=== PATIENT | male | born 1945 | race Hispanic/Latino ===

== ENCOUNTER 2017-03-29 15:59 | Emergency (ER) | payer MEDICARE, MEDICAID ==
[2017-03-29 18:27] LABS: #Basophils 0.1 thou/uL (0.0-0.2); #Eosinphils 0.2 thou/uL (0.0-0.7); #Lymphocytes 1.3 thou/uL (1.20-3.40); #Monocytes 0.9 thou/uL (0.11-0.59); #Neutrophils 8.3 thou/uL (1.40-6.50); %Basophils 0.6 % (0.0-1.0); %Lymphocytes 12.3 % (21.0-51.0); %Monocytes 8.5 % (0.0-10.0); Hematocrit 37.6 % (42.0-52.0); Mean Platelet Volume 6.9 fL (7.4-10.4); Red Blood Cell (RBC) Count 3.61 mill/uL (4.70-6.10); White Blood Cell (WBC) Count 10.9 thou/uL (4.8-10.8)
[2017-03-29 18:47] LABS: ALT (SGPT) 10 U/L (8-55); AST (SGOT) 11 U/L (5-34); Alkaline Phosphatase 62 U/L (40-150); Anion Gap 18 mmol/L (10-20); BUN (Urea Nitrogen) 14 mg/dL (8.4-25.7); Bilirubin, Total 0.4 mg/dL (0.2-1.2); Calc. Creatinine Clearance 0 mL/min (70-130); Calcium 9.3 mg/dL (7.8-10.44); Carbon Dioxide 33 mmol/L (23-31); Chloride 93 mmol/L (98-107); Estimated GFR-MDRD 16; Globulin 3.6 g/dL (2.4-3.5); Protein, Total 8.1 g/dL (5.8-8.1)
== END 2017-03-29 20:33 | disposition home or self-care (01) ==
LOC: ERS 15:59
DX: R19.7 Diarrhea, unspecified (principal); I12.0 Hypertensive chronic kidney disease with stage 5 chronic kidney disease or end stage renal disease; E11.22 Type 2 diabetes mellitus with diabetic chronic kidney disease; N18.6 End stage renal disease; Z99.2 Dependence on renal dialysis
CPT/HCPCS: 36415; 80053; 85025; 99284

== ENCOUNTER 2017-04-20 16:50 | Observation (INO) | payer MEDICARE, MEDICAID ==
[2017-04-20 18:13] LABS: Hemoglobin 13.7 g/dL (14.0-18.0); Mean Corpuscular HGB CONC 32.6 g/dL (32.0-36.0); Mean Corpuscular Hemoglobin 34.3 pg (27.0-31.0); Mean Platelet Volume 7.3 fL (7.4-10.4); Platelet Count 219 thou/uL (130-400); Red Blood Cell (RBC) Count 3.99 mill/uL (4.70-6.10); White Blood Cell (WBC) Count 7.6 thou/uL (4.8-10.8)
[2017-04-20 18:29] LABS: #Basophils 0.1 thou/uL (0.0-0.2); #Eosinphils 0.4 thou/uL (0.0-0.7); #Lymphocytes 1.5 thou/uL (1.20-3.40); #Monocytes 0.7 thou/uL (0.11-0.59); #Neutrophils 4.8 thou/uL (1.40-6.50); %Basophils 1.4 % (0.0-1.0); %Eosinophils 5.6 % (0.0-10.0); %Lymphocytes 19.8 % (21.0-51.0); %Monocytes 9.5 % (0.0-10.0); %Neutrophils 63.8 % (42.0-75.0); Anisocytosis SLIGHT = 6-15 cells (100X) (0-5/hpf); MDiff Complete? YES; Macrocytosis SLIGHT = 6-15 cells (100X) (0-5/hpf); Poikilocytosis SLIGHT = 6-15 cells (100X) (0-5/hpf)
[2017-04-20 18:37] LABS: CKMB 1.4 ng/mL (0-6.6); Troponin I 0.031 ng/mL (< 0.028)
[2017-04-20 18:38] LABS: ALT (SGPT) 10 U/L (8-55); AST (SGOT) 12 U/L (5-34); Alkaline Phosphatase 75 U/L (40-150); Anion Gap 18 mmol/L (10-20); BUN (Urea Nitrogen) 30 mg/dL (8.4-25.7); Bilirubin, Total 0.5 mg/dL (0.2-1.2); CK (CPK) 56 U/L (30-200); Calc. Creatinine Clearance 0 mL/min (70-130); Calcium 8.9 mg/dL (7.8-10.44); Carbon Dioxide 31 mmol/L (23-31); Chloride 98 mmol/L (98-107); Estimated GFR-MDRD 10; Globulin 3.4 g/dL (2.4-3.5); Glucose 115 mg/dL (83-110); Potassium 4.2 mmol/L (3.5-5.1); Protein, Total 7.4 g/dL (5.8-8.1); Sodium 143 mmol/L (136-145)
[2017-04-20] MEDS ORDERED: cloNIDine 0.1 MG TAB ONE ×2 (19:41→20:14)
[2017-04-20 23:23] LABS: Troponin I 0.034 ng/mL (< 0.028)
--- NOTE | 2017-04-20 23:45 | CT ---
CT OF HEAD NONCONTRAST 04/20/17 INDICATION: Hypertension, headache. FINDINGS: There are scattered calcifications involving the basal ganglia as well as the cerebellar nuclei bilat erally. There is mild global atrophy. Ventricular system is age appropriate in size. There is mild ch ronic microvascular ischemic disease. Scattered paranasal sinus mucosal thickening is present, modera te in degree. There is associated hyperdensity within component of the paranasal sinus mucosal thicke sruthi which can represent atypical entity such as fungal sinusitis. Correlate clinically. IMPRESSION: 1. No acute intracranial hemorrhage or mass effect. 2. Mild chronic microvascular ischemic disease. 3. Areas of mucosal thickening and paranasal sinus opacification as discussed above. POS: [facility]
[2017-04-21] MEDS ORDERED: hydrALAZINE 20 MG/ML VIAL SLOW IVP PRN (00:37)
[2017-04-21] MEDS ORDERED: Acetaminophen 325 MG TAB PO PRN (00:37)
[2017-04-21] MEDS ORDERED: Dextrose 50% Abboject 50 ML SYRINGE SLOW IVP PRN (00:37)
[2017-04-21] MEDS ORDERED: Nitroglycerin 0.4 MG TAB (25 Tab Bottle) SL PRN (00:37)
[2017-04-21] MEDS ORDERED: Ondansetron HCl/PF 4 MG/2 ML Vial IVP PRN (00:37)
[2017-04-21] MEDS ORDERED: Dextrose 5% in Water 1,000 ML IV PRN (00:37)
[2017-04-21] MEDS ORDERED: HumaLOG 300 UNITS/3 ML VIAL SC PRN (00:37)
[2017-04-21] MEDS: Labetalol HCl 100 MG/20 ML VIAL SLOW IVP PRN ×2 (00:58→21:20)
[2017-04-21 01:27] VITALS: BMI 24.2
[2017-04-21 02:39] LABS: #Basophils 0.1 thou/uL (0.0-0.2); #Eosinphils 0.4 thou/uL (0.0-0.7); #Lymphocytes 1.9 thou/uL (1.20-3.40); #Monocytes 0.9 thou/uL (0.11-0.59); #Neutrophils 4.9 thou/uL (1.40-6.50); %Basophils 0.8 % (0.0-1.0); %Eosinophils 4.7 % (0.0-10.0); %Lymphocytes 23.3 % (21.0-51.0); %Monocytes 10.7 % (0.0-10.0); %Neutrophils 60.5 % (42.0-75.0); Hemoglobin 11.7 g/dL (14.0-18.0); Mean Corpuscular HGB CONC 32.6 g/dL (32.0-36.0); Mean Corpuscular Hemoglobin 34.1 pg (27.0-31.0); Mean Platelet Volume 7.1 fL (7.4-10.4); Platelet Count 172 thou/uL (130-400); RBC Distribution Width 14.8 % (11.5-14.5); Red Blood Cell (RBC) Count 3.44 mill/uL (4.70-6.10)
[2017-04-21 03:04] LABS: Troponin I 0.038 ng/mL (< 0.028)
[2017-04-21 03:27] LABS: Anion Gap 16 mmol/L (10-20); BUN (Urea Nitrogen) 34 mg/dL (8.4-25.7); Calc. Creatinine Clearance 10 mL/min (70-130); Calcium 8.1 mg/dL (7.8-10.44); Carbon Dioxide 30 mmol/L (23-31); Chloride 99 mmol/L (98-107); Estimated GFR-MDRD 9; Glucose 140 mg/dL (83-110); Sodium 141 mmol/L (136-145)
--- NOTE | 2017-04-21 06:08 | HP ---
CHIEF COMPLAINT: Uncontrolled blood pressure. HISTORY OF PRESENT ILLNESS: This is a 71-year-old pleasant gentleman who has end-stage renal disease , came into the hospital as the daughter checked his blood pressure today at home and it was extremel y high. She came in because she was concerned. The patient denies any chest pain. Admits to some h eadache. The ER physician called Dr. Lovell and he recommended that we admit the patient for control o f his blood pressure and he would dialyze the patient in the morning. PAST MEDICAL HISTORY: Significant for diabetes, hypertension, and end-stage renal disease. 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 SOCIAL HISTORY: Denies alcohol, tobacco, or recreational drugs. ALLERGIES: HYDROCODONE. MEDICATIONS: Include , aspirin, amlodipine 10 mg p.o. daily, Losartan 50 p.o. daily, atorvastat in 10 mg p.o. daily. FAMILY HISTORY: Negative for diabetes or hypertension. REVIEW OF SYSTEMS: Significant for headache and elevated blood pressure. Otherwise, no fever, no ch ills, no appetite, no appetite, no hearing loss, no latencies. No cough, no chest pain, diarrhea, dy suria or polyuria. No memory or mood changes noted. PHYSICAL EXAMINATION: VITAL SIGNS: Blood pressure is 227/80 after he got 0.2 of clonidine in the ER before that, it was 25 6/95, respirations 18, satting 93% on room air, pulse was 97, temperature 97.4. GENERAL: Patient is lying in bed in no apparent distress. HEENT: Atraumatic and normocephalic. Pupils are equally round, reactive to light. Extraocular move ments are intact. Mucous membranes are moist. NECK: Supple. No JVD. CHEST: Breath sounds. There are no rales or rhonchi. HEART: S1, S2, no murmurs or gallops. ABDOMEN: Soft. EXTREMITIES: Right AKA. Left side, no cyanosis, clubbing, or edema. Distal pulses present. NEUROLOGIC: Alert, awake, oriented. No cranial deficits. No sensorimotor deficits. LABORATORY DATA: CK is 56. Sodium is 143, potassium 4.2, chloride is 98, creatinine is 4.4, BUN is 30, troponin is 0.31, hemoglobin is 13.7. Platelets 219. WBC count is 7.6. ASSESSMENT AND PLAN: 1. Hypertensive urgency. We will admit the patient to dialysis in the morning. We will do IV hydra lazine and IV labetalol to alternate to keep the blood pressure around 170 or 180 for now and then fo llow Dr. Lovell's recommendations. Continue Norvasc, losartan from home medications. 2. End-stage renal disease, dialysis in the morning. 3. Diabetes. Put the patient on insulin sliding scale. 4. Hypertension. Make recommendations per Dr. Lovell. 5. Sequential compression devices for deep venous thrombosis prophylaxis. I will work with Dr. Lovell and further caring for the patient.
[2017-04-21] MEDS: Aspirin 81 mg Enteric Coated Tablet PO SCH (09:03)
[2017-04-21] MEDS: Amlodipine 10 MG TAB PO SCH (09:03)
[2017-04-21] MEDS: Atorvastatin Calcium 10 MG TAB PO SCH (09:03)
[2017-04-21 13:02] LABS: HBSAg Index 0.25 S/CO (0-0.99); Hep B Surf Ag Non-Reactive S/CO (NonReactive)
--- NOTE | 2017-04-21 15:23 | PDOC.PN ---
- Subjective Encounter Start Date: 04/21/17 Encounter Start Time: 15:15 Subjective: f/u for HTN urgency requiring urgent HD for control. ESRD on chronic HD -: with overall improved BP currently undergoing HD. No CP, SOB, unilateral -: weakness. - Objective MAR Reviewed: Yes Vital Signs & Weight: Vital Signs (12 hours) Temp Pulse Resp BP BP Pulse Ox 04/21/17 12:00 97.5 F L 70 18 141/63 H 93 L 04/21/17 09:03 71 154/68 H 04/21/17 08:00 97.0 F L 71 18 154/68 H 96 04/21/17 04:00 98.2 F 68 18 205/81 H 93 L Weight Weight 145 lb 8 oz I&O: 04/20/17 04/21/17 04/22/17 06:59 06:59 06:59 Intake Total 240 Balance 240 Result Diagrams: 04/21/17 02:32 04/21/17 02:32 Additional Labs: Accuchecks 04/21/17 04/21/17 04/21/17 12:16 06:10 00:45 POC Glucose 160 H 111 H 116 H Radiology Reviewed by me: Yes (CT brain - no acute process) EKG Reviewed by me: Yes (Tele - SR in 70's) Phys Exam - Physical Examination Constitutional: NAD HEENT: PERRLA, oral pharynx no lesions Neck: no JVD, supple Respiratory: no wheezing, clear to auscultation bilateral Cardiovascular: RRR Gastrointestinal: soft, non-tender, no distention, positive bowel sounds Musculoskeletal: no edema, pulses present Neurological: normal sensation, moves all 4 limbs Skin: normal turgor, cap refill <2 seconds Dx/Plan (1) Hypertensive urgency Code(s): I16.0 - HYPERTENSIVE URGENCY Status: Acute Comment: Improved with urgent HD, continue HD per Renal service, serial BP monitoring, resume home Norvasc and Losartan (2) ESRD (end stage renal disease) on dialysis Code(s): N18.6 - END STAGE RENAL DISEASE; Z99.2 - DEPENDENCE ON RENAL DIALYSIS Status: Chronic Comment: HD per Renal service (3) CAD (coronary artery disease) Code(s): I25.10 - ATHSCL HEART DISEASE OF [place] CORONARY ARTERY W/O ANG PCTRS Status: Chronic Comment: Stable, no ACS, continue ASA 81mg daily, Lipitor 10mg HS (4) Dyslipidemia Code(s): E78.5 - HYPERLIPIDEMIA, UNSPECIFIED Status: Chronic Comment: Continue Lipitor 10mg HS (5) HTN (hypertension) Code(s): I10 - ESSENTIAL (PRIMARY) HYPERTENSION Status: Chronic Qualifiers: Hypertension type: essential hypertension Qualified Code(s): I10 - Essential (primary) hypertension Comment: labile, see #1, resume home BP regimen - Plan group social worker, DVT proph w/SCDs Stable overall -: Continue HD for volume mgmt -: Serial BP monitoring -: Continue Norvasc, Losartan -: AM lab: BMP * Likely home in am
--- NOTE | 2017-04-21 16:46 | CON ---
DATE OF CONSULTATION: 04/21/2017 REASON FOR CONSULTATION: Stage 6 chronic kidney disease, on maintenance hemodialysis. HISTORY OF PRESENT ILLNESS: The patient is a 71-year-old gentleman, who is on dialysis Monday, , and Monday, who presented to the hospital with uncontrolled blood pressure. The patient had no t been taking his medications as prescribed. The patient has had significant . The patient de nies any nausea, vomiting, or chest pain. PAST MEDICAL HISTORY: Significant for diabetes mellitus, hypertension, end-stage renal disease, hist ory of AV fistula, history of BKA, history of cellulitis, history of DVTs, history of secondary hyper parathyroidism. SOCIAL ECONOMICAL HISTORY: No alcohol or drugs. FAMILY HISTORY: Negative for ESRD. HOME MEDICATIONS: List reviewed. HOSPITAL MEDICATIONS: Reviewed. ALLERGIES: HYDROCODONE BITARTRATE. REVIEW OF SYSTEMS: Fifteen point review of system was performed and negative except positives noted above. GENERAL: Weakness-. HEAD: Headache-. NECK: No swelling or lumps. NOSE: No epistaxis or discharge. EYES: No diplopia or pain. RESPIRATORY: Dyspnea-. CARDIOVASCULAR: Chest pain-. GASTROINTESTINAL: Nausea-. /[employer]: Hematuria-. MUSCULOSKELETAL: No joint pain. NEUROPSYCHIATIC SYSTEMS: No suicidal ideation. No ideation. SKIN: Denies any rash or ulcer. CONSTITUTIONAL: No fever or chills. PHYSICAL EXAMINATION: GENERAL: Patient is awake and alert. VITAL SIGNS: Afebrile, pulse 75, breathing at 16, and blood pressure 154/68. GENERAL APPEARANCE AND MENTAL STATUS: Fair. HEAD/NECK: Normocephalic. Atraumatic. EYES: EOMI. No deformity. EARS: Clear. No ulcers. NOSE: Intact. No lesions. MOUTH: Clear. No discharge. THROAT: Clear. No exudate. LUNGS: Clear. No crackles. CARDIAC: S1, S2. No rub. ABDOMEN: Benign. BS+. GENITALIA/RECTUM: Weiner absent. BACK/EXTREMITIES: Edema 0+ Ulcer-. NEUROLOGICAL: Alert and motor intact. SKIN: Rash- Bruise-. LYMPHATICS: Edema- Ulcer-. LABORATORY DATA: Hemoglobin 11.7, potassium 4.0. ASSESSMENT AND RECOMMENDATIONS: 1. Stage 6 chronic kidney disease. We will plan dialysis. 2. Hypertension, stable. 3. Anemia, stable. 4. Medications based on GFR are appropriate. I advised the patient to comply with medication.
[2017-04-21] MEDS: Cilostazol 100 MG TAB PO SCH (21:21)
[2017-04-22 06:20] LABS: Anion Gap 15 mmol/L (10-20); BUN (Urea Nitrogen) 22 mg/dL (8.4-25.7); Calc. Creatinine Clearance 16 mL/min (70-130); Calcium 8.6 mg/dL (7.8-10.44); Carbon Dioxide 31 mmol/L (23-31); Chloride 97 mmol/L (98-107); Estimated GFR-MDRD 15; Glucose 116 mg/dL (83-110); Potassium 4.2 mmol/L (3.5-5.1); Sodium 139 mmol/L (136-145)
--- NOTE | 2017-04-22 08:40 | PDOC.PN ---
- Subjective Encounter Start Date: 04/22/17 - Objective Vital Signs & Weight: Vital Signs (12 hours) Temp Pulse Resp BP BP Pulse Ox 04/22/17 08:02 98 F 71 17 154/68 H 94 L 04/22/17 04:32 71 181/71 H 04/22/17 04:10 97.5 F L 71 18 181/71 H 94 L 04/22/17 00:00 98.1 F 72 18 177/76 H 94 L 04/21/17 21:20 71 181/74 H Weight Weight 145 lb 8 oz I&O: 04/21/17 04/22/17 04/23/17 06:59 06:59 06:59 Intake Total 540 Balance 540 Result Diagrams: 04/21/17 02:32 04/22/17 05:31 Additional Labs: Accuchecks 04/22/17 04/21/17 04/21/17 05:49 20:40 12:16 POC Glucose 121 H 205 H 160 H Dx/Plan - Plan * .
[2017-04-22] MEDS ORDERED: Losartan 25 MG TAB PO SCH (09:00)
[2017-04-22] MEDS: Cilostazol 100 MG TAB PO SCH (09:13)
[2017-04-22] MEDS: Atorvastatin Calcium 10 MG TAB PO SCH (09:13)
[2017-04-22] MEDS: Aspirin 81 mg Enteric Coated Tablet PO SCH (09:13)
[2017-04-22] MEDS: Amlodipine 10 MG TAB PO SCH (09:13)
--- NOTE | 2017-04-22 10:49 | PRG ---
DATE OF SERVICE: 04/22/2017 SUBJECTIVE: This is a 71-year-old gentleman being seen for end-stage renal disease. The patient den ies any nausea, vomiting or chest pain. PHYSICAL EXAMINATION: GENERAL: Patient is awake, alert. VITAL SIGNS: Afebrile, pulse 75, breathing at 16, blood pressure 154/68. HEAD/NECK: Normocephalic. Atraumatic. EYES: EOMI. No deformity. EARS: Clear. No ulcers. NOSE: Intact. No lesions. MOUTH: Clear. No discharge. THROAT: Clear. No exudate. LUNGS: Clear. No crackles. CARDIAC: S1, S2. No rub. ABDOMEN: Benign. BS+. GENITALIA/RECTUM: Weiner absent. BACK/EXTREMITIES: Edema 0+ Ulcer- NEUROLOGICAL: Alert and motor intact. SKIN: Rash- Bruise- LYMPHATICS: Edema- Ulcer- LABORATORY DATA: Show hemoglobin is 11.7. ASSESSMENT AND RECOMMENDATIONS: 1. Stage 6 chronic kidney disease, continue hemodialysis. 2. Hypertension, stable. 3. Anemia, stable. 4. Medications based on glomerular filtration rate are appropriate.
[2017-04-22 12:41] VITALS: BP 164/72; TEMP 98.2
--- NOTE | 2017-04-24 07:51 | DIS ---
PRIMARY CARE PHYSICIAN: Dr. Alex DISCHARGE DIAGNOSES: 1. Hypertension, uncontrolled. 2. End-stage renal disease. 3. Question of medication noncompliance. BRIEF SUMMARY OF HOSPITAL COURSE: This is a 71-year-old male with a known history of hypertension and end-stage renal disease with a question of marginal medication and therapy compliance, who presented with a chief complaint of hypertension. The patient was seen by Nephrology during this hospitalization as well. The patient was resumed on his home medication regimen and underwent hemodialysis without adverse sequelae. As the patient had slightly elevated blood pressures intermittently despite resuming his home medications, he has been placed on clonidine p.r.n. and given strict instructions for routine blood pressure evaluation at home. The patient and his at bedside are able to complete teach back with the aid of a commercial leasing agent over the phone. They have indicated that they will buy a blood pressure cuff over the counter and were able to complete teach back via lens grinder and polisher regarding when to utilize p.r.n. clonidine. The remainder of chronic issues were stable during hospitalization. CONSULTATIONS Nephrology, Dr. Lovell. MEDICATION: Medication reconciliation; please see the MAR for full details. The patient will resume on his home regimen with the addition of 0.1 mg, clonidine b.i.d. p.r.n. Prescription given. DISCHARGE AND FOLLOWUP INSTRUCTIONS: The patient has been asked to follow up closely with his outpatient team including his primary care provider in the next week along with Nephrology as well. Patient will discharge to home. Thank you for asking me to care for your patient. Greater than 30 minutes spent coordinating discharge. VENKATESH
== END 2017-04-22 12:45 | disposition home or self-care (01) ==
LOC: ERS 16:50 → 2NO 22:25
PROVIDERS: ADMIT Internal Medicine; ATTEND Internal Medicine
DX: E11.22 Type 2 diabetes mellitus with diabetic chronic kidney disease (principal); I12.0 Hypertensive chronic kidney disease with stage 5 chronic kidney disease or end stage renal disease; N18.6 End stage renal disease; I16.0 Hypertensive urgency; N25.81 Secondary hyperparathyroidism of renal origin; D63.1 Anemia in chronic kidney disease; Z99.2 Dependence on renal dialysis; Z79.82 Long term (current) use of aspirin; Z79.899 Other long term (current) drug therapy; Z88.5 Allergy status to narcotic agent; Z89.611 Acquired absence of right leg above knee; Z89.422 Acquired absence of other left toe(s); Z86.718 Personal history of other venous thrombosis and embolism; Z87.891 Personal history of nicotine dependence
CPT/HCPCS: 70450; 80048 ×2; 80053; 82550; 82553; 82962 ×2; 84484 ×3; 85025 ×2; 87340; 93005; 96374; 96376 ×2; 99285; G0378; 36415; 36416; 90935; G0257; J0360

== ENCOUNTER 2017-07-09 22:26 | Emergency (ER) | payer MEDICARE, MEDICAID ==
[2017-07-10 00:28] LABS: #Basophils 0.1 thou/uL (0.0-0.2); #Eosinphils 0.8 thou/uL (0.0-0.7); #Lymphocytes 1.6 thou/uL (1.20-3.40); #Neutrophils 6.8 thou/uL (1.40-6.50); %Basophils 0.6 % (0.0-1.0); %Eosinophils 7.5 % (0.0-10.0); %Lymphocytes 15.2 % (21.0-51.0); %Monocytes 9.7 % (0.0-10.0); %Neutrophils 66.9 % (42.0-75.0); Hemoglobin 11.3 g/dL (14.0-18.0); Mean Corpuscular HGB CONC 33.9 g/dL (32.0-36.0); Mean Corpuscular Hemoglobin 33.8 pg (27.0-31.0); Mean Corpuscular Volume 99.5 fl (80.0-94.0); Mean Platelet Volume 7.6 fL (7.4-10.4); Platelet Count 179 thou/uL (130-400); RBC Distribution Width 13.7 % (11.5-14.5); Red Blood Cell (RBC) Count 3.35 mill/uL (4.70-6.10); White Blood Cell (WBC) Count 10.2 thou/uL (4.8-10.8)
[2017-07-10] MEDS ORDERED: cloNIDine 0.1 MG TAB ONE (00:32)
[2017-07-10 00:45] LABS: ALT (SGPT) 23 U/L (8-55); AST (SGOT) 45 U/L (5-34); Albumin 4.1 g/dL (3.4-4.8); Alkaline Phosphatase 71 U/L (40-150); Anion Gap 19 mmol/L (10-20); BUN (Urea Nitrogen) 54 mg/dL (8.4-25.7); Bilirubin, Total 0.5 mg/dL (0.2-1.2); Calc. Creatinine Clearance 0 mL/min (70-130); Carbon Dioxide 30 mmol/L (23-31); Chloride 95 mmol/L (98-107); Estimated GFR-MDRD 8; Globulin 2.8 g/dL (2.4-3.5); Glucose 106 mg/dL (83-110); Magnesium 2.6 mg/dL (1.6-2.6); Phosphorus 6.1 mg/dL (2.3-4.7); Potassium 5.3 mmol/L (3.5-5.1); Protein, Total 6.9 g/dL (5.8-8.1); Sodium 139 mmol/L (136-145)
[2017-07-10 00:49] LABS: Troponin I 0.028 ng/mL (< 0.028)
--- NOTE | 2017-07-10 07:41 | RAD ---
SINGLE VIEW OF THE CHEST: COMPARISON: 08/30/15. HISTORY: Diabetic with hypertension. The patient does not feel well. FINDINGS: A single view of the chest shows a normal-size cardiomediastinal silhouette. There may be a calcifie d pleural plaque along the right hemidiaphragm. There is no evidence of consolidation, mass, or pleu ral effusion. Degenerative changes are seen in the spine. IMPRESSION: No evidence of acute cardiopulmonary disease. POS: [facility]
== END 2017-07-10 02:27 | disposition home or self-care (01) ==
LOC: ERS 22:26
DX: E78.5 Hyperlipidemia, unspecified; E11.22 Type 2 diabetes mellitus with diabetic chronic kidney disease; N18.6 End stage renal disease; Z79.82 Long term (current) use of aspirin; Z79.899 Other long term (current) drug therapy; I12.0 Hypertensive chronic kidney disease with stage 5 chronic kidney disease or end stage renal disease; Z99.2 Dependence on renal dialysis
CPT/HCPCS: 36416; 71045; 80053; 82553; 83735; 83880; 84100; 84484; 85025; 93005; 94760

== ENCOUNTER 2017-07-12 08:10 | Inpatient (IN) | payer MEDICARE, MEDICAID ==
[2017-07-12 08:43] LABS: #Basophils 0.1 thou/uL (0.0-0.2); #Eosinphils 0.6 thou/uL (0.0-0.7); #Lymphocytes 1.8 thou/uL (1.20-3.40); #Monocytes 0.8 thou/uL (0.11-0.59); #Neutrophils 6.3 thou/uL (1.40-6.50); %Basophils 0.7 % (0.0-1.0); %Eosinophils 6.2 % (0.0-10.0); %Monocytes 8.7 % (0.0-10.0); %Neutrophils 65.4 % (42.0-75.0); Hemoglobin 11.2 g/dL (14.0-18.0); Mean Corpuscular HGB CONC 33.9 g/dL (32.0-36.0); Mean Corpuscular Hemoglobin 33.7 pg (27.0-31.0); Mean Corpuscular Volume 99.5 fl (80.0-94.0); Mean Platelet Volume 7.8 fL (7.4-10.4); Platelet Count 197 thou/uL (130-400); RBC Distribution Width 13.6 % (11.5-14.5); Red Blood Cell (RBC) Count 3.31 mill/uL (4.70-6.10); White Blood Cell (WBC) Count 9.6 thou/uL (4.8-10.8)
[2017-07-12 09:06] LABS: ALT (SGPT) 21 U/L (8-55); AST (SGOT) 30 U/L (5-34); Albumin 4.4 g/dL (3.4-4.8); Alkaline Phosphatase 87 U/L (40-150); Anion Gap 21 mmol/L (10-20); BUN (Urea Nitrogen) 40 mg/dL (8.4-25.7); Bilirubin, Total 0.7 mg/dL (0.2-1.2); Calc. Creatinine Clearance 0 mL/min (70-130); Calcium 9.1 mg/dL (7.8-10.44); Carbon Dioxide 28 mmol/L (23-31); Chloride 92 mmol/L (98-107); Estimated GFR-MDRD 9; Globulin 3.2 g/dL (2.4-3.5); Glucose 99 mg/dL (83-110); Potassium 5.8 mmol/L (3.5-5.1); Protein, Total 7.6 g/dL (5.8-8.1); Sodium 135 mmol/L (136-145)
--- NOTE | 2017-07-12 09:06 | CT ---
NONCONTRAST CT HEAD: Date: 07-12-17 History: Altered mental status. Dysarthria. Hypertension. Comparison: 04-20-17 FINDINGS: Again noted are scattered calcifications involving each basal ganglia and cerebellar nuclei bilateral ly. There is diffuse cerebral volume loss similar to prior exam. Low density areas are seen in the pe riventricular white matter, nonspecific, but likely related to mild chronic small vessel ischemic amanda nges. There is no evidence of an acute cortical infarction, hemorrhage, mass effect or midline shift. Ventricular system is normal in size, shape, and position. Low density focus is seen in the right as pect of the harish likely related to remote lacunar infarction. Again noted is opacification of the left sphenoid sinus with increased density material in the spheno id sinus which may be related to fungal infection or inspissated secretions. Mucosal thickening is se en in each maxillary antrum. There is opacification of more inferior mastoid air cells, stable from p rior study. There is no other interval change from prior exam. IMPRESSION: 1. No acute intracranial abnormalities demonstrated. 2. Chronic small vessel ischemic changes and cerebral volume loss. 3. Remote lacunar infarction in the right harish. 4. Sinus disease similar to prior study with opacification of the left sphenoid sinus with increased density material which may be related to inspissated secretions or fungal infection. 5. Mastoid effusions on the left. POS: [facility]
[2017-07-12] MEDS ORDERED: niCARdipine 20MG In NaCl 20 MG/200 ML BAG ONE (09:51)
[2017-07-12] MEDS ORDERED: Acetaminophen 325 MG TAB PO PRN (14:07)
[2017-07-12] MEDS ORDERED: Senokot 8.6 MG TAB PO PRN (14:07)
[2017-07-12] MEDS ORDERED: cloNIDine 0.1 MG TAB PO PRN ×2 (14:09→16:01)
[2017-07-12] MEDS ORDERED: Amlodipine 10 MG TAB PO SCH (16:15)
[2017-07-12] MEDS ORDERED: Losartan 25 MG TAB PO SCH (16:30)
[2017-07-12 16:56] LABS: #Basophils 0.1 thou/uL (0.0-0.2); #Eosinphils 0.3 thou/uL (0.0-0.7); #Lymphocytes 2.8 thou/uL (1.20-3.40); #Monocytes 1.1 thou/uL (0.11-0.59); #Neutrophils 7.3 thou/uL (1.40-6.50); %Basophils 0.9 % (0.0-1.0); %Eosinophils 2.6 % (0.0-10.0); %Lymphocytes 24.3 % (21.0-51.0); %Monocytes 9.3 % (0.0-10.0); %Neutrophils 62.9 % (42.0-75.0); Mean Corpuscular HGB CONC 32.8 g/dL (32.0-36.0); Mean Corpuscular Hemoglobin 34.2 pg (27.0-31.0); Mean Platelet Volume 8.2 fL (7.4-10.4); Platelet Count 194 thou/uL (130-400); RBC Distribution Width 13.9 % (11.5-14.5); Red Blood Cell (RBC) Count 3.22 mill/uL (4.70-6.10); White Blood Cell (WBC) Count 11.7 thou/uL (4.8-10.8)
[2017-07-12 16:59] LABS: INR-International Normal Ratio 1.1
[2017-07-12 17:13] LABS: ALT (SGPT) 18 U/L (8-55); AST (SGOT) 25 U/L (5-34); Albumin 4.2 g/dL (3.4-4.8); Alkaline Phosphatase 85 U/L (40-150); Anion Gap 24 mmol/L (10-20); BUN (Urea Nitrogen) 44 mg/dL (8.4-25.7); Bilirubin, Total 0.6 mg/dL (0.2-1.2); Calc. Creatinine Clearance 0 mL/min (70-130); Carbon Dioxide 24 mmol/L (23-31); Chloride 96 mmol/L (98-107); Estimated GFR-MDRD 8; Globulin 3.1 g/dL (2.4-3.5); Glucose 89 mg/dL (83-110); Potassium 6.4 mmol/L (3.5-5.1); Protein, Total 7.3 g/dL (5.8-8.1); Sodium 138 mmol/L (136-145)
--- NOTE | 2017-07-12 17:21 | RAD ---
PORTABLE AP CHEST X-RAY: 07/12/17 HISTORY: Post intubation. COMPARISON: 07/10/17. FINDINGS: There has been interval placement of an endotracheal tube with tip overlying the T2 vertebral body an d well above the level of the kaylynn. Nasogastric tube has also been placed in the interim which cour ses into the left upper quadrant, but the tip is not imaged. The cardiac silhouette and bronchovascular markings are accentuated by the portable technique of this study and shallow depth of inspiration. However, there does appear to be mild increased in perihilar interstitial densities which may be related to either pulmonary edema or infectious process. Vascula r calcifications are seen in the thoracic aorta. Atelectasis previously seen at each lung base on the prior exam is improved on this study. IMPRESSION: 1. Mild increase in perihilar interstitial densities some of which is related to the shallow dep th of inspiration and portable technique, but the findings are worrisome for element of mild pulmonar y edema or infectious process. 2. Interval placement of endotracheal tube and nasogastric tubes. POS: [facility]
[2017-07-12 17:30] LABS: Actual Bicarbonate (HCO3a) 25.6 mEq/L (22-26); Base Excess (BEa) 0.2 mEq/L (0 (+/-) 2.5); Hematocrit-ABG 32.3 % (42.0-52.0); Hemoglobin (Hb) 9.7 g/dL (14.0-18.0); O2 Tension (PaO2) 82.6 mmHg (80.0-100.0); pH, Arterial 7.37 (7.35-7.45)
[2017-07-12 17:31] LABS: Puncture Site RRA
[2017-07-12] MEDS ORDERED: Lacri-Lube Opth Oint 3.5 GM TUBE EA EYE PRN (17:31)
[2017-07-12] MEDS ORDERED: Insulin Regular 300 UNITS/3 ML VIAL SC PRN (17:31)
[2017-07-12] MEDS ORDERED: Fentanyl BOLUS 250 ML IVPB PRN (17:37)
[2017-07-12] MEDS ORDERED: fentaNYL Citrate/PF 2,000 MCG in Sodium Chloride 0.9% 60 ML IV SCH (17:37)
[2017-07-12] MEDS ORDERED: Lorazepam 2 MG/ML VIAL SLOW IVP PRN (17:37)
[2017-07-12] MEDS ORDERED: Morphine 2 MG/ML SYRINGE SLOW IVP PRN (17:37)
[2017-07-12] MEDS ORDERED: Propofol 1,000 MG/100 ML VIAL IV PRN (17:37)
[2017-07-12] MEDS ORDERED: DISCONTINUE PREVIOUS NARCOTIC PAIN MEDICATIONS AND BENZODIAZEPINES FS SCH (17:37)
[2017-07-12] MEDS ORDERED: Morphine 4 MG/ML VIAL SLOW IVP PRN (17:45)
[2017-07-12] MEDS ORDERED: levETIRAcetam In NaCl (Iso-Os) 1,000 MG in Premix Bag 1 BAG IVPB SCH (17:45)
[2017-07-12] MEDS ORDERED: Ventilator Sedation Protocol 1 EACH FS SCH (17:45)
--- NOTE | 2017-07-12 18:04 | CON ---
DATE OF CONSULTATION: 07/12/2017 NEPHROLOGY CONSULTATION REASON FOR CONSULTATION: Hyperkalemia. HISTORY OF PRESENT ILLNESS: This is a 72-year-old gentleman on dialysis Monday, Monday, and , who has a habit of not taking blood pressure medicine, came to the hospital with altered mental st atus and elevated blood pressure. The patient's blood pressure was treated. The patient can give no further history. PAST MEDICAL HISTORY: Diabetes mellitus, hypertension, AV fistula, DVT. SOCIAL HISTORY: No alcohol or drug use. FAMILY HISTORY: Negative for ESRD. HOME MEDICATIONS: List reviewed. HOSPITAL MEDICATIONS: Reviewed. ALLERGIES: Reviewed. REVIEW OF SYSTEMS: Unobtainable. PHYSICAL EXAMINATION: GENERAL: The patient is resting. VITAL SIGNS: Afebrile, pulse 75, breathing at 16, blood pressure was 170/80. GENERAL APPEARANCE AND MENTAL STATUS: Fair. HEAD/NECK: Normocephalic. Atraumatic. EYES: EOMI. No deformity. EARS: Clear. No ulcers. NOSE: Intact. No lesions. MOUTH: Clear. No discharge. THROAT: Clear. No exudate. LUNGS: Clear. No crackles. CARDIAC: S1, S2. No rub. ABDOMEN: Benign. BS+. GENITALIA/RECTUM: Weiner absent. BACK/EXTREMITIES: Edema 0+ Ulcer- NEUROLOGICAL: The patient is resting. SKIN: Rash- Bruise- LYMPHATICS: Edema- Ulcer- LABORATORY DATA: Show potassium is 5.8. ASSESSMENT AND RECOMMENDATIONS: 1. Stage 6 chronic kidney disease, plan dialysis. 2. Hyperkalemia, plan dialysis. 3. Anemia, stable. 4. Medications based on glomerular filtration rate are appropriate. 5. Hypertension. Titrate the patient's home medication, avoid lowering blood pressure.
[2017-07-12] MEDS: Labetalol HCl 100 MG/20 ML VIAL SLOW IVP PRN ×3 (19:19→22:22)
[2017-07-12] MEDS ORDERED: Famotidine 20 MG TAB PO SCH (21:00)
--- NOTE | 2017-07-12 21:10 | CON ---
DATE OF CONSULTATION: 07/12/2017 SERVICE: Pulmonary Medicine. REASON FOR CONSULTATION: Respiratory failure. HISTORY OF PRESENT ILLNESS: The patient is a 72-year-old male. He was in his usual state of health when apparently he started becoming increasingly confused. A couple of days ago, the patient's family interrupted all of his medications because they were afraid that he was not taking it correctly. Either way, in the Emergency Department, he was found to be extraordinarily hypertensive. He needed to be put on dialysis. He was brought to the dialysis unit and he was talking inappropriate. Shortly after arriving in the dialysis unit, he had an event that looked a lot like a seizure. He had general tonic-clonic motion. When I presented there, he had more of a tonic phase. He had a good pulse, but was agonal with his respirations. We were trying to get rescue breathing underway when he became completely apneic. He briefly lost pulse. Chest compressions were initiated. He got less than 2 minutes of chest compressions and did not require any medications or electricity , but he had return of circulation. Ultimately, rescue breathing was done until we could secure an airway. He cannot provide any additional elements of the history at this time. PAST MEDICAL HISTORY: 1. End-stage renal disease. 2. History of strokes, multiple. 3. Type 2 diabetes mellitus. 4. Hypertension. PAST SURGICAL HISTORY: 1. Dialysis access shunts, multiple revisions. 2. Above-knee amputation on the right. 3. Fifth digit removed from the left lower extremity. SOCIAL HISTORY: Negative for alcohol, tobacco or illicit drug use based on review. FAMILY HISTORY: Noncontributory. ALLERGIES: HYDROCODONE. MEDICATIONS: List of his inpatient medications were reviewed. Multiple updates were made at this time. REVIEW OF SYSTEMS: This cannot be obtained as the patient is currently encephalopathic. PHYSICAL EXAMINATION: VITAL SIGNS: Afebrile, pulse 72, blood pressure 164/72, respirations 16 on mechanical ventilation, respirations 17, saturation 100% on 31% FIO2 and a PEEP of 5. HEENT: Normocephalic, atraumatic. Sclerae are white, conjunctivae pink. Oral mucosa is moist without lesions. Pupils are equal, round, and reactive to light. LUNGS: Truth be told, he has got clear breath sounds bilaterally. There is no prolonged expiratory phase, wheezing, rhonchi or crackles. HEART: Normal rate and regular. ABDOMEN: Soft, nontender, nondistended. Bowel sounds are positive. MUSCULOSKELETAL: No cyanosis or clubbing. There is no pitting in the left lower extremity. Left fifth digit is surgically absent in the lower extremity. The right lower extremity is surgically absent. : No Weiner. NEUROLOGIC: Grossly nonfocal so far as I can tell, but he still remains encephalopathic and is not really withdrawing from any stimuli. He is overbreathing the ventilator, cough, gags and has equal, round and reactive pupils. LABORATORY DATA: WBC 11.7, hemoglobin 11.0, platelets 194,000. INR 1.1. Creatinine 6.74, BUN 44, anion gap 24, bicarbonate 24. Potassium 6.4. Liver function studies are essentially unremarkable. IMAGIN. Chest x-ray demonstrates endotracheal tube resides roughly 5 cm above the level of the kaylynn. There is an enteric catheter courses well below the level of the diaphragm. Patchy interstitial infiltrates are present, but likely are accentuated by lower lung volumes. I do not appreciate a clear pleural effusion present, though there is minimal blunting of the bilateral costophrenic angles. 2. CT of the brain demonstrates no acute intracranial abnormality. There are chronic small vessel ischemic changes and cerebral volume loss. Remote lacunar infarct in the right harish is present. Sinus opacification is present consistent with inspissated secretions or fungal infection. Mastoid effusions are present on the left. ASSESSMENT: 1. Seizure, witnessed by multiple medical staff. 2. Acute hypoxic respiratory failure. 3. End-stage renal disease. 4. Hypertension. 5. Sinusitis, DISCUSSION, AND PLAN: We will keep the patient on mechanical ventilation overnight. A considerable amount of time went into stabilizing the patient. We will initiate some antibiotics directed at aspiration related diseases. This will be Zosyn. It should cover sinusitis as well as any aspiration related pneumonias. I will leave him on propofol overnight before this is started; however, we will hold sedation to see whether or not he wakes up. I will put him on anti-seizure medications. Pulmonary Critical Care will continue to follow closely. CRITICAL CARE TIME: One hundred minutes including code event, and stabilization after that, unbundled from procedure. VENKATESH
[2017-07-12] MEDS: Heparin 5,000 UNITS/ML VIAL SC SCH (22:30)
[2017-07-13] MEDS: Piperacillin/Tazobactam 2.25 GM in Sodium Chloride 0.9% 100 ML IVPB SCH ×4 (00:33→22:11)
[2017-07-13] MEDS: Cilostazol 100 MG TAB PO SCH ×3 (00:42→22:09)
--- NOTE | 2017-07-13 02:51 | HP ---
DATE OF CONSULTATION: 07/12/2017 CHIEF COMPLAINT: Impaired speech. HISTORY OF PRESENT ILLNESS: Patient a 72-year-old male with past medical history of end-stage renal disease on dialysis, hypertension, and CAD who presented to the hospital with complaints of im paired speech. The patient's daughter who was at the bedside, explained about what happened to the p atient. Apparently, the patient has been known to not taking his medications correctly and has overd osed on his prescribed medications per daughter, so the daughter and the family took all the medicati ons and so patient was not taking any of his medications at home per daughter. This morning when reyes osorio's daughter went to see the patient, she thought that he did not look well and had some impaired speech to which point she took him to the ER instead of his scheduled dialysis day. Patient currentl y denies any chest pain, nausea, vomiting, shortness of breath or diarrhea. Apparently, when the reyes osorio came into the ER, he was very confused and he was found to have a blood pressure systolic in the 240s with very high diastolic. He was started on a Cardene drip which improved his blood pressures. Currently, his blood pressure was 154/90. Patient upon my examination was much more awake, alert, and was able to communicate well. PAST MEDICAL HISTORY: 1. End-stage renal disease. 2. Hypertension. 3. Diabetes. PAST SURGICAL HISTORY: Dialysis shunt on the left upper extremity and amputation of the right lower extremity. SOCIAL HISTORY: Denies any alcohol, tobacco or recreational drug use. ALLERGIES: HYDROCODONE, unknown reaction. MEDICATIONS: This is per his last discharge summary which was in April. Medications were clonidin e 0.1 mg p.o. b.i.d. p.r.n., Cozaar 50 mg p.o. daily, cilostazol 100 mg p.o. b.i.d., atorvastatin 10 mg p.o. daily, aspirin 81 mg p.o. daily, amlodipine 10 mg p.o. daily and Tylenol 650 q.4 hours p.r.n. REVIEW OF SYSTEMS: The following complete review of systems was negative, unless otherwise mentioned in the HPI or below: Constitutional: Weight loss or gain, ability to conduct usual activities. Sk in: Rash, itching. Eyes: Double vision, pain. ENT/Mouth: Nose bleeding, neck stiffness, pain, te nderness. Cardiovascular: Palpitations, dyspnea on exertion, orthopnea. Respiratory: Shortness of breath, wheezing, cough, hemoptysis, fever or night sweats. Gastrointestinal: Poor appetite, abdom inal pain, heartburn, nausea, vomiting, constipation, or diarrhea. Genitourinary: Urgency, frequenc y, dysuria, nocturia. Musculoskeletal: Pain, swelling. Neurologic/Psychiatric: Anxiety, depressio n. Allergy/Immunologic: Skin rash, bleeding tendency. FAMILY HISTORY: Negative for any diabetes or hypertension. PHYSICAL EXAMINATION: VITAL SIGNS: Blood pressure in the 240s over 100s. The patient's heart rate was in the 80s, respira tions were 18, temperature of 98.5. GENERAL: He is in bed, awake, alert, oriented x3. HEENT: Normocephalic, atraumatic. No lymphadenopathy was noted. NECK: Supple, no JVD. CHEST: Breath sounds, clear to auscultation. No rhonchi, wheezes noted. CARDIOVASCULAR: S1, S2 present. No murmurs, rubs or gallops. ABDOMEN: Soft, nontender. Bowel sounds are present x2. EXTREMITIES: The patient does have a fistula on his left side and also has a right AKA. NEUROLOGIC: He is alert, awake, oriented. No deficits are noted. LABORATORY DATA: As following: WBC of 11.7, hemoglobin of 11.0, hematocrit of 33.6, platelets of 19 4. Sodium of 138, potassium of 5.8, chloride of 92, BUN of 40, creatinine of 6.01, calcium of 9.1. The patient had a CT head which did not indicate any acute abnormalities, but did indicate some sinus disease similar to the prior studies with opacification of the left sphenoid sinus with increased de nsity material which could be related to incipient secretions or fungal infection, mastoid effusion o n the left. Patient also had a chest x-ray done on the , which did not indicate any acute process es. ASSESSMENT AND PLAN: The patient is a very pleasant 72-year-old male who initially presented to the hospital with possible dysarthria. 1. Accelerated hypertensive emergency. The patient did have acute mental status change. At this ti me, he was seen in the ER. He was started on the Cardene drip. His blood pressure continued to impr ove and the patient then was taken to dialysis. However, when he was in dialysis, I was told by the nurse that the patient had a seizure and at that point, a CODE BLUE was called. The patient did unde rgo CPR for a minute and was intubated with good resuscitation and the patient was taken to the ICU f or further evaluation. Neurology also was consulted and ordered an EEG. The patient was started on Keppra. I am not sure, but this could be a possibility that the patient did have seizure at home and was postictal when he came into the hospital. The patient also has been very noncompliant with his blood pressure medications. When I spoke with the patient's daughter, the patient lives with his wif e and his son who cannot read the directions on his medication tablet which therefore causes him to t gerald too much medication at once. Patient will need a home health nurse to help him sort out his medi cations on a daily basis, so that would avoid any further coming into the hospital with hypertensive emergencies. 2. End-stage renal disease. The patient will be dialyzed per Nephrology. 3. Hyperkalemia. This will improve with dialysis. 4. Deep venous thrombosis prophylaxis. We will put patient on subcu heparin.
--- NOTE | 2017-07-13 04:56 | CON ---
DATE OF CONSULTATION: 07/12/2017 REFERRING PROVIDER: Tanya Bland MD REASON FOR CONSULTATION: Seizure. HISTORY OF PRESENT ILLNESS: Mr. Higuera is a pleasant 72-year-old male who has been consulted for evaluation of seizures. History is very limited and primarily obtained from Dr. Bland. Apparently, patient has a history of end-stage renal disease, he is on dialysis. He also has a history of noncompliance with medication. Apparently, he was found to be confused and disoriented by family member which prompted them to bring him to the emergency room. On arrival to the emergency room, he was supposed to be getting dialysis ; while he was being prepared for dialysis, he had a generalized tonic-clonic seizure and required intubation for airway protection. Now he is in ICU and according to the nurse, he has not had any more seizures since being in the ICU. PAST MEDICAL HISTORY: Could not be obtained. PAST SURGICAL HISTORY: Could not be obtained. SOCIAL HISTORY: Could not be obtained. FAMILY HISTORY: Could not be obtained. CURRENT MEDICATIONS: Could not be obtained. ALLERGIES: Could not be obtained. REVIEW OF SYSTEMS: Unable to obtain. PHYSICAL EXAMINATION: VITAL SIGNS: Blood pressure 173/50, pulse of 77, temperature of 98.3, respirations of 15 on mechanical ventilation. GENERAL: Intubated, nonsedated male in no apparent distress. RESPIRATORY: Clear to auscultation bilaterally. CARDIOVASCULAR: Regular rate and rhythm. NEUROLOGIC: Mental status: The patient is intubated, nonsedated. He opens his eyes to verbal stimuli. He is able to follow some commands. Cranial nerves : Pupils are 2 mm and reactive. He blinks to threat on both sides. He does breathe over the ventilator machine. Motor exam showed normal tone and bulk in both upper and left lower extremity. He has a right BKA. He spontaneously moves both upper extremities and left lower extremity. He withdraws to pain on both upper extremities and left lower extremity. LABORATORY DATA: Reviewed, which included CBC, coag panel, and CMP, which is significant for WBC of 11.7, hemoglobin 11.0, hematocrit 33.6, potassium of 6.4 , BUN of 44, creatinine of 6.74. Otherwise, unremarkable. IMAGING STUDIES: CT head without contrast was reviewed, which showed no acute intracranial abnormality. IMPRESSION: 1. generalized tonic-clonic seizure. 2. Malignant hypertension. PLAN: Mr. Higuera is a 72-year-old male with multiple medical problems , who presented with malignant hypertension along with a generalized tonic- clonic seizure. At this time, I would recommend continuing on Keppra 500 mg IV b.i.d. He may need to be given an extra dose of Keppra post-dialysis. Continue supportive care. I will obtain EEG in the morning. Thank you for consultation. ERINND
[2017-07-13] MEDS: Aspirin 81 mg Enteric Coated Tablet PO SCH (08:38)
[2017-07-13] MEDS: Famotidine 20 MG TAB PO SCH (08:38)
[2017-07-13] MEDS: Heparin 5,000 UNITS/ML VIAL SC SCH ×2 (08:38→22:08)
[2017-07-13] MEDS ORDERED: DISCONTINUE PREVIOUS NARCOTIC PAIN MEDICATIONS AND BENZODIAZEPINES FS SCH (08:57)
[2017-07-13] MEDS ORDERED: Lorazepam 2 MG/ML VIAL SLOW IVP PRN (08:57)
[2017-07-13] MEDS ORDERED: Fentanyl BOLUS 250 ML IVPB PRN (08:57)
[2017-07-13] MEDS ORDERED: Morphine 2 MG/ML SYRINGE SLOW IVP PRN (08:57)
[2017-07-13] MEDS ORDERED: Propofol BOLUS 1,000 MG/100 ML VIAL IV PRN (08:57)
[2017-07-13] MEDS ORDERED: Propofol 1,000 MG/100 ML VIAL IV PRN (08:57)
[2017-07-13] MEDS ORDERED: Amlodipine 10 MG TAB PO SCH (09:00)
[2017-07-13] MEDS ORDERED: Prevnar 13-Val Conj/PF 0.5 ML SYRINGE IM ONE (09:00)
[2017-07-13] MEDS ORDERED: Losartan 25 MG TAB PO SCH (09:00)
[2017-07-13] MEDS ORDERED: Atorvastatin Calcium 10 MG TAB PO SCH (09:00)
[2017-07-13] MEDS ORDERED: Morphine 4 MG/ML VIAL SLOW IVP PRN (09:15)
[2017-07-13] MEDS ORDERED: fentaNYL Citrate/PF 2,000 MCG in Sodium Chloride 0.9% 60 ML IV SCH (09:32)
[2017-07-13] MEDS: Labetalol HCl 100 MG/20 ML VIAL SLOW IVP PRN ×2 (09:33→12:33)
[2017-07-13 10:10] LABS: #Basophils 0.1 thou/uL (0.0-0.2); #Monocytes 1.1 thou/uL (0.11-0.59); #Neutrophils 10.6 thou/uL (1.40-6.50); %Basophils 0.5 % (0.0-1.0); %Eosinophils 0.2 % (0.0-10.0); %Lymphocytes 7.7 % (21.0-51.0); %Monocytes 8.7 % (0.0-10.0); %Neutrophils 82.9 % (42.0-75.0); Mean Corpuscular Hemoglobin 33.9 pg (27.0-31.0); Mean Corpuscular Volume 99.9 fl (80.0-94.0); Platelet Count 170 thou/uL (130-400); RBC Distribution Width 13.9 % (11.5-14.5); Red Blood Cell (RBC) Count 2.94 mill/uL (4.70-6.10); White Blood Cell (WBC) Count 12.8 thou/uL (4.8-10.8)
[2017-07-13 10:37] LABS: Anion Gap 17 mmol/L (10-20); BUN (Urea Nitrogen) 20 mg/dL (8.4-25.7); Calc. Creatinine Clearance 14 mL/min (70-130); Calcium 8.8 mg/dL (7.8-10.44); Carbon Dioxide 28 mmol/L (23-31); Chloride 97 mmol/L (98-107); Estimated GFR-MDRD 14; Glucose 90 mg/dL (83-110); Potassium 5.1 mmol/L (3.5-5.1); Sodium 137 mmol/L (136-145)
--- NOTE | 2017-07-13 12:56 | PRG ---
DATE OF SERVICE: 07/13/2017 SUBJECTIVE: This is a 72-year-old gentleman being seen for end-stage renal disease. Patient is intu bated and tolerated dialysis well. PHYSICAL EXAMINATION: GENERAL: The patient is resting. VITAL SIGNS: Afebrile, pulse 80, breathing at 16, blood pressure 140/70. GENERAL APPEARANCE AND MENTAL STATUS: Fair. HEAD/NECK: Normocephalic, atraumatic. EYES: EOMI. No deformity. EARS: Clear. No ulcers. NOSE: Intact. No lesions. MOUTH: Clear. No discharge. THROAT: Clear. No exudate. LUNGS: Clear. No crackles. CARDIAC: S1, S2. No rub. ABDOMEN: Benign. BS+. GENITALIA/RECTUM: Weiner absent. BACK/EXTREMITIES: Edema 0+ Ulcer-. NEUROLOGICAL: The patient is resting. SKIN: Rash- Bruise- LYMPHATICS: Edema- Ulcer-. LABORATORY DATA: Show hemoglobin of 10. ASSESSMENT AND RECOMMENDATIONS: 1. Stage 6 chronic kidney disease, plan dialysis tomorrow. 2. Hypertension, stable. 3. Anemia, stable. 4. Medication based on glomerular filtration rate are appropriate.
--- NOTE | 2017-07-13 17:25 | PRG ---
DATE OF SERVICE: 07/13/2017 SERVICE: Pulmonary Medicine. INTERVAL HISTORY: The patient is doing really quite well from a respiratory standpoint. He cannot provide much in the way of interval history. That being said, he is really sleeping quite poorly responsive. He has not had any sedation at all over the last 24 hours. He is slow to come around. That being said, he is following some simple commands. He had an EEG this morning and there were no significant changes there. PHYSICAL EXAMINATION: VITAL SIGNS: Afebrile, pulse 78, blood pressure 159/44, respirations 10, saturation 100% on 21% FiO2 and a PEEP of 5. GENERAL: The patient is somnolent, but follows some simple commands. HEENT: Normocephalic, atraumatic. Sclerae are white, conjunctivae pink. Oral mucosa is moist without lesions. LUNGS: Decent air entry. There is not much in the way of prolonged expiratory phase. Rhonchi are present. They clear with cough. HEART: Normal rate, regular. ABDOMEN: Soft, nontender, nondistended. Bowel sounds are positive. MUSCULOSKELETAL: No cyanosis or clubbing. There is 1+ pitting in the left lower extremity. Right lower extremity is surgically absent. LABORATORY DATA: WBC 12.8, hemoglobin 10.0, platelets 170,000. INR 1.1. Creatinine 4.13. Basic metabolic profile is, otherwise, unremarkable. TSH 0.8. ASSESSMENT: 1. Seizure, witnessed by multiple staff members. 2. Respiratory failure secondary to inability to protect airway, resolving. 3. Metabolic encephalopathy, improving. 4. Possible anoxic brain injury, slow to resolve. 5. End-stage renal disease. 6. Hypertension. 7. Sinusitis. DISCUSSION AND PLAN: We will continue empiric antibiotics, nebulized medications. We will continue to hold any sedation, moving forward. Hopefully , the next 12-24 hours, the patient will start to slowly improve his mentation and we can safely consider extubation. He will continue his antiepileptic drugs. EEG was performed, but there was no report of ongoing seizure activity. Critical care time: 30 minutes. MTDD
--- NOTE | 2017-07-13 17:59 | PDOC.PN ---
- Subjective Encounter Start Date: 07/13/17 Encounter Start Time: 09:00 Subjective: pt in bed intubated, awake and follows some commands, is slow to respond - Objective Resuscitation Status: Resuscitation Status FULL:Full Resuscitation Vital Signs & Weight: Vital Signs (12 hours) Temp Pulse Pulse Pulse Resp BP BP 07/13/17 16:00 98.7 F 10 L 07/13/17 14:17 84 155/36 H 07/13/17 14:00 15 07/13/17 12:00 99.1 F 10 L 07/13/17 10:18 87 144/36 H 07/13/17 10:00 14 07/13/17 08:55 87 86 136/32 L 07/13/17 08:00 99.3 F 11 L 07/13/17 07:10 99.3 F 91 11 L 07/13/17 07:01 91 156/39 H 07/13/17 05:59 101.1 F H BP Pulse Ox Pulse Ox Pulse Ox 07/13/17 16:00 07/13/17 14:17 07/13/17 14:00 07/13/17 12:00 07/13/17 10:18 07/13/17 10:00 07/13/17 08:55 188/54 H 100 100 07/13/17 08:00 07/13/17 07:10 100 07/13/17 07:01 07/13/17 05:59 Weight Admit Weight 139 lb Weight 139 lb 8.842 oz Most Recent Monitor Data Heart Rate from ECG 81 NIBP 166/33 NIBP BP-Mean 97 Respiration from ECG 14 SpO2 100 I&O: 07/12/17 07/13/17 07/14/17 06:59 06:59 06:59 Intake Total 444 90 Output Total 75 0 Balance 369 90 Result Diagrams: 07/13/17 09:26 07/13/17 09:26 Additional Labs: Accuchecks 07/13/17 07/13/17 07/13/17 12:37 05:56 00:46 POC Glucose 101 83 96 07/12/17 07/12/17 18:10 16:29 POC Glucose 130 H 102 Phys Exam - Physical Examination HEENT: PERRLA, moist MMs, sclera anicteric, TM's clear, oral pharynx no lesions , 2+ tonsils Neck: no nodes, no JVD, supple, full ROM Respiratory: no wheezing, no rales, no rhonchi, wheezing present, clear to auscultation bilateral Cardiovascular: RRR, no significant murmur, no rub, gallop, irregular Gastrointestinal: soft, non-tender, no distention, positive bowel sounds pt is not moving his right upper ext on verbal command compared to his left Dx/Plan - Plan 1) hypertensive emergency 2) acute seizure 3) acute hypoxic resp failure requiring intubation on 07/12 4) ESRD 5) hyperkalemia plan: pt's home meds have been restarted. Noncompliance is a problem with him. Keppra started and eeg done no seizure activity noted. Neurology consulted. pt is intubated possible extubation per pulmonary's note. dialysis per nephrology. hyperkalemia improved. Pt on abx ppx * . Review of Systems - Review of Systems Other: unable to obtain - Medications/Allergies Allergies/Adverse Reactions: Allergies Allergy/AdvReac Type Severity Reaction Status Date / Time hydrocodone bitartrate AdvReac Nausea Verified 06/08/16 11:46 [From Vicodin] Medications: Current Medications Acetaminophen (Tylenol) 650 mg PO Q4H PRN PRN Reason: Headache/Fever or Pain Acetaminophen (Tylenol) 650 mg PO Q4H PRN PRN Reason: Headache/Fever or Pain Albuterol/Ipratropium (Duoneb) 3 ml NEB [id number] PRN PRN Reason: SOB &/or Wheezing Amlodipine Besylate (Norvasc) 10 mg PO DAILY [facility] Aspirin (Ecotrin) 81 mg PO DAILY [facility] Last Admin: 07/13/17 08:38 Dose: 81 mg Cilostazol (Pletal) 100 mg PO BID [facility] Last Admin: 07/13/17 08:38 Dose: 100 mg Clonidine (Catapres) 0.1 mg PO BID [facility] Famotidine (Pepcid) 20 mg PO DAILY [facility] Last Admin: 07/13/17 08:38 Dose: 20 mg Heparin Sodium (Porcine) (Heparin) 5,000 units SC BID [facility] Last Admin: 07/13/17 08:38 Dose: 5,000 units Levetiracetam 500 mg/ Device 100 mls @ 200 mls/hr IVPB 0500,1700 [facility] Last Admin: 07/13/17 03:40 Dose: 100 mls Piperacillin Sod/Tazobactam (Sod 2.25 gm/ Sodium Chloride) 100 mls @ 200 mls/ hr IVPB Q8HR [facility] Last Admin: 07/13/17 15:24 Dose: 100 mls Insulin Human Regular (Humulin R) 0 units SC .MILD SLIDING SCALE PRN PRN Reason: Mild Correctional Scale Labetalol HCl (Normodyne) 20 mg SLOW IVP Q15MIN PRN PRN Reason: SBP Greater Than 180 Last Admin: 07/13/17 09:33 Dose: 20 mg Lorazepam (Ativan) 2 mg SLOW IVP Q1H PRN PRN Reason: Breakthrough agitation Stop: 08/12/17 08:57 Mineral Oil/White Petrolatum (Lacri-Lube Ointment) 0 gm EA EYE PRN PRN PRN Reason: Dry Eyes Discontinue Previous Narcotic Pain Medications And Benzodiazepines 1 each FS .ONE [facility] Stop: 08/12/17 08:57 Senna (Senokot) 2 tab PO HSPRN PRN PRN Reason: Constipation
[2017-07-13] MEDS: cloNIDine 0.1 MG TAB PO SCH (22:09)
[2017-07-14] MEDS: Piperacillin/Tazobactam 2.25 GM in Sodium Chloride 0.9% 100 ML IVPB SCH ×3 (05:36→22:49)
[2017-07-14] MEDS: Heparin 5,000 UNITS/ML VIAL SC SCH ×2 (08:59→22:49)
[2017-07-14] MEDS: Aspirin 81 mg Enteric Coated Tablet PO SCH (09:00)
[2017-07-14] MEDS: Cilostazol 100 MG TAB PO SCH (09:00)
[2017-07-14] MEDS: Famotidine 20 MG TAB PO SCH (09:01)
--- NOTE | 2017-07-14 11:21 | PRG ---
DATE OF SERVICE: 07/14/2017 SUBJECTIVE: A 72-year-old gentleman being seen for end-stage renal disease. The patient remains int ubated The patient is resting. PHYSICAL EXAMINATION: VITAL SIGNS: Afebrile, pulse 79, breathing 16, blood pressure 131/33. OBJECTIVE: See above. Awake, alert, in no acute distress. GENERAL APPEARANCE AND MENTAL STATUS: Fair. HEAD/NECK: Normocephalic. Atraumatic. EYES: EOMI. No deformity. EARS: Clear. No ulcers. NOSE: Intact. No lesions. MOUTH: Clear. No discharge. THROAT: Clear. No exudate. LUNGS: Clear. No crackles. CARDIAC: S1, S2. No rub. ABDOMEN: Benign. BS+. GENITALIA/RECTUM: Weiner absent. BACK/EXTREMITIES: Edema 0+ Ulcer- NEUROLOGICAL: The patient is resting. SKIN: Rash- Bruise- LYMPHATICS: Edema- Ulcer- LABORATORY: Hemoglobin 10.0. ASSESSMENT AND RECOMMENDATIONS: 1. Stage 6 chronic kidney disease. We will plan dialysis. 2. Hypertension, stable. 3. Anemia, stable. 4. Medication based on glomerular filtration rate are appropriate. 5. Respiratory failure and altered mentation. Management per primary team.
[2017-07-14] MEDS: Amlodipine 10 MG TAB PO SCH (12:20)
[2017-07-14] MEDS: cloNIDine 0.1 MG TAB PO SCH (12:20)
[2017-07-14] MEDS: Labetalol HCl 100 MG/20 ML VIAL SLOW IVP PRN (13:06)
--- NOTE | 2017-07-14 13:15 | PDOC.PN ---
- Subjective Encounter Start Date: 07/14/17 Encounter Start Time: 11:30 Subjective: pt intubated - Objective Resuscitation Status: Resuscitation Status FULL:Full Resuscitation Vital Signs & Weight: Vital Signs (12 hours) Temp Pulse Resp BP Pulse Ox 07/14/17 12:20 79 187/37 H 07/14/17 12:00 98.3 F 23 H 07/14/17 10:00 16 07/14/17 09:45 79 113/33 L 07/14/17 08:00 97.8 F 80 23 H 100 07/14/17 07:00 97.8 F 07/14/17 05:41 9 L 07/14/17 05:00 98.3 F 07/14/17 04:00 15 07/14/17 02:52 75 07/14/17 02:00 12 Weight Admit Weight 139 lb Weight 141 lb 5.061 oz Most Recent Monitor Data Heart Rate from ECG 100 NIBP 192/48 NIBP BP-Mean 89 Respiration from ECG 18 SpO2 92 I&O: 07/13/17 07/14/17 07/15/17 06:59 06:59 06:59 Intake Total 444 650 0 Output Total 75 25 0 Balance 369 625 0 Result Diagrams: 07/18/17 04:51 07/16/17 03:44 Additional Labs: Accuchecks 07/14/17 07/14/17 07/13/17 12:39 05:27 23:50 POC Glucose 76 81 98 07/13/17 18:46 POC Glucose 103 Phys Exam - Physical Examination Neck: no nodes, no JVD, supple, full ROM Respiratory: wheezing present Cardiovascular: RRR Gastrointestinal: soft, non-tender, no distention, positive bowel sounds right aka, pt is moving right and left hand Neurological: non-focal Dx/Plan - Plan 1) hypertensive emergency 2) acute seizure 3) acute hypoxic resp failure requiring intubation on 07/12 4) ESRD 5) hyperkalemia plan: pt's home meds have been restarted. Noncompliance is a problem with him. Keppra started and eeg done no seizure activity noted. Neurology consulted. pt is intubated possible extubation per pulmonary's note. dialysis per nephrology. hyperkalemia improved. Pt on abx ppx. * . Review of Systems - Review of Systems Other: unable to participate - Medications/Allergies Allergies/Adverse Reactions: Allergies Allergy/AdvReac Type Severity Reaction Status Date / Time hydrocodone bitartrate AdvReac Nausea Verified 06/08/16 11:46 [From Vicodin] Medications: Current Medications Acetaminophen (Tylenol) 650 mg PO Q4H PRN PRN Reason: Headache/Fever or Pain Acetaminophen (Tylenol) 650 mg PO Q4H PRN PRN Reason: Headache/Fever or Pain Albuterol/Ipratropium (Duoneb) 3 ml NEB [id number] PRN PRN Reason: SOB &/or Wheezing Amlodipine Besylate (Norvasc) 10 mg PO DAILY [facility] Last Admin: 07/14/17 12:20 Dose: 10 mg Aspirin (Ecotrin) 81 mg PO DAILY [facility] Last Admin: 07/14/17 09:00 Dose: 81 mg Cilostazol (Pletal) 100 mg PO BID [facility] Last Admin: 07/14/17 09:00 Dose: 100 mg Clonidine (Catapres) 0.1 mg PO BID [facility] Last Admin: 07/14/17 12:20 Dose: 0.1 mg Famotidine (Pepcid) 20 mg PO DAILY [facility] Last Admin: 07/14/17 09:01 Dose: 20 mg Heparin Sodium (Porcine) (Heparin) 5,000 units SC BID [facility] Last Admin: 07/14/17 08:59 Dose: 5,000 units Levetiracetam 500 mg/ Device 100 mls @ 200 mls/hr IVPB 0500,1700 [facility] Last Admin: 07/14/17 05:18 Dose: 100 mls Piperacillin Sod/Tazobactam (Sod 2.25 gm/ Sodium Chloride) 100 mls @ 200 mls/ hr IVPB Q8HR [facility] Last Admin: 07/14/17 13:14 Dose: 100 mls Insulin Human Regular (Humulin R) 0 units SC .MILD SLIDING SCALE PRN PRN Reason: Mild Correctional Scale Labetalol HCl (Normodyne) 20 mg SLOW IVP Q15MIN PRN PRN Reason: SBP Greater Than 180 Last Admin: 07/14/17 13:06 Dose: 20 mg Lorazepam (Ativan) 2 mg SLOW IVP Q1H PRN PRN Reason: Breakthrough agitation Stop: 08/12/17 08:57 Mineral Oil/White Petrolatum (Lacri-Lube Ointment) 0 gm EA EYE PRN PRN PRN Reason: Dry Eyes Discontinue Previous Narcotic Pain Medications And Benzodiazepines 1 each FS .ONE [facility] Stop: 08/12/17 08:57 Senna (Senokot) 2 tab PO HSPRN PRN PRN Reason: Constipation
--- NOTE | 2017-07-14 20:27 | PRG ---
DATE OF SERVICE: 07/14/2017 SERVICE: Pulmonary Medicine. INTERVAL HISTORY: The patient is doing fine from a respiratory standpoint. He has been CPAPing esse ntially since yesterday. We dropped him down to pressure support of 5. He did not drop a beat. He is actually breathing fairly comfortably. He denies any chest pains or shortness of breath. He is o n mechanical ventilation, but breathing comfortable. PHYSICAL EXAMINATION: VITAL SIGNS: Afebrile with a T-max of 101.5 yesterday morning. Pulse 84, blood pressure 106/30, res pirations of 23, saturation 96% on room air. GENERAL: Patient is intubated and sedated. HEENT: Normocephalic, atraumatic. Sclerae are white, conjunctivae pink. Oral and nasal mucosa is m oist without lesions. LUNGS: Decent air entry with rhonchi present. No prolonged expiratory phase or wheezing is apprecia jony. HEART: Normal rate, regular. ABDOMEN: Soft, nontender, nondistended. Bowel sounds are positive. MUSCULOSKELETAL: No cyanosis or clubbing. There is 1+ pitting in the bilateral lower extremities. NEUROLOGIC: Nonfocal. ASSESSMENT: 1. Seizure, possibly secondary to hypertensive event. 2. Acute hypoxic respiratory failure, resolving. 3. Metabolic encephalopathy, resolving. 4. Possible anoxic brain injury, slowly resolving. 5. End-stage renal disease. 6. Hypertension. 7. Sinusitis. DISCUSSION AND PLAN: I will continue supportive care. I would leave him on 5/5 for 30 minutes. If he meets criteria after dialysis is done, he will be extubated. Pulmonary Critical Care will continu e to follow along while he remains in this location. CRITICAL CARE TIME: Thirty minutes.
--- NOTE | 2017-07-14 22:06 | OP ---
DATE OF SERVICE: 07/12/2017 SERVICE: Pulmonary Medicine. PROCEDURE: Emergent endotracheal intubation. CONSENT: Procedure was performed emergently secondary to clinical condition and respiratory failure. STAFF PHYSICIAN: Julian Wynn M.D. MEDICATIONS: None. PREPROCEDURE DIAGNOSES: 1. Seizure disorder. 2. Pulseless electrical arrest. POSTPROCEDURE DIAGNOSES: 1. Seizure disorder. 2. Pulseless electrical arrest. DESCRIPTION OF PROCEDURE: Vital sign monitoring was accomplished by noninvasive hemodynamic monitori ng, pulse oximetry, and telemetry. In the supine position, the patient was preoxygenated with bag va lve mask ventilation and maintain with saturations of 94%. A MAC 4 blade was inserted through the mo uth. Had a grade IV view. An attempt to place an endotracheal tube was made, but unsuccessful. As such, we continued her bag valve mask ventilation. A GlideScope was obtained. With the #4 sheath, t he GlideScope was placed in the posterior oropharynx. Nearly, it was not large enough to get to wher e we needed to be. however, I did offer as a grade II view. Endotracheal tube was visualized passin g through the vocal cords. Placement was confirmed by condensation in the endotracheal tube, colorim etric capnography, and by axillary chest auscultation. Endotracheal tube was secured at 23 cm, measu red at the teeth. He was placed on mechanical ventilation with good return of volumes. Post-procedu re x-ray demonstrated decent location of endotracheal tube inside the trachea. ESTIMATED BLOOD LOSS: 5 mL. COMPLICATIONS: None.
[2017-07-15] MEDS: Cilostazol 100 MG TAB PO SCH ×3 (01:16→22:05)
[2017-07-15] MEDS: cloNIDine 0.1 MG TAB PO SCH ×4 (01:16→22:17)
[2017-07-15] MEDS: Piperacillin/Tazobactam 2.25 GM in Sodium Chloride 0.9% 100 ML IVPB SCH ×3 (05:28→21:03)
[2017-07-15] MEDS: Famotidine 20 MG TAB PO SCH (08:25)
[2017-07-15] MEDS: Aspirin 81 mg Enteric Coated Tablet PO SCH (08:25)
[2017-07-15] MEDS: Heparin 5,000 UNITS/ML VIAL SC SCH ×2 (08:25→21:03)
[2017-07-15] MEDS: Amlodipine 10 MG TAB PO SCH ×2 (09:09→15:09)
--- NOTE | 2017-07-15 11:20 | PRG ---
DATE OF SERVICE: 07/15/2017 SUBJECTIVE: This is a 72-year-old gentleman being seen for end-stage renal disease. PHYSICAL EXAMINATION: GENERAL: The patient resting. VITAL SIGNS: Afebrile, pulse 74, breathing 16, blood pressure 104/22. HEAD/NECK: Normocephalic. Atraumatic. EYES: EOMI. No deformity. EARS: Clear. No ulcers. NOSE: Intact. No lesions. MOUTH: Clear. No discharge. THROAT: Clear. No exudate. LUNGS: Clear. No crackles. CARDIAC: S1, S2. No rub. ABDOMEN: Benign. BS+. GENITALIA/RECTUM: Weiner absent. BACK/EXTREMITIES: Edema 0+ Ulcer- NEUROLOGICAL: Alert and motor intact. SKIN: Rash- Bruise- LYMPHATICS: Edema- Ulcer- LABORATORY DATA: Show hemoglobin 10. ASSESSMENT AND RECOMMENDATIONS: 1. Stage 6 chronic kidney disease. Plan dialysis on Monday, Monday, and Monday. 2. Hypertension stable. 3. Anemia stable. 4. Medications based on glomerular filtration rate are appropriate.
--- NOTE | 2017-07-15 22:14 | PRG ---
DATE OF SERVICE: 07/15/2017 SUBJECTIVE: He says he feels "okay." He has done well post-extubation. He has no respiratory distress. OBJECTIVE: VITAL SIGNS: His heart rates in 60s-70s, blood pressure 120/40, respiratory rates in the teens, and oximetry is 99% to 100%. LUNGS: Clear. HEART: Regular rhythm. ABDOMEN: Soft. EXTREMITIES: Without asymmetry. LABORATORY DATA: White count 12.8, hemoglobin 10.0, platelets 170,000. There are no new electrolytes today. Yesterday's sodium was 134, his potassium was 5.5. IMPRESSION: 1. Status post respiratory failure. 2. End-stage renal disease on Monday, Monday, Monday dialysis. He probably deserves lab in the [facility]. 3. Hypertension. 4. Seizure? secondary to hypertension. 5. Encephalopathy that apparently is resolving. 6. Sinusitis. PLAN: We will continue to follow. He is in the critical care unit. We will check lab in the [facility]
--- NOTE | 2017-07-15 22:41 | PDOC.PN ---
- Subjective Encounter Start Date: 07/15/17 Encounter Start Time: 10:30 Subjective: pt up in bed states he feel sick - Objective Resuscitation Status: Resuscitation Status FULL:Full Resuscitation Vital Signs & Weight: Vital Signs (12 hours) Temp Pulse Pulse Pulse BP BP BP 07/15/17 22:17 119/32 L 07/15/17 20:00 98.3 F 07/15/17 17:00 98.3 F 07/15/17 15:09 73 170/72 H 07/15/17 12:00 98.3 F 07/15/17 11:31 78 76 119/35 L 119/35 L Pulse Ox Pulse Ox 07/15/17 22:17 07/15/17 20:00 07/15/17 17:00 07/15/17 15:09 07/15/17 12:00 07/15/17 11:31 95 98 Weight Admit Weight 139 lb Weight 128 lb 15.527 oz Most Recent Monitor Data Heart Rate from ECG 67 NIBP 119/32 NIBP BP-Mean 82 Respiration from ECG 24 SpO2 98 I&O: 07/14/17 07/15/17 07/16/17 06:59 06:59 06:59 Intake Total 650 500 740 Output Total 25 0 0 Balance 625 500 740 Result Diagrams: 07/16/17 03:44 07/16/17 03:44 Additional Labs: Accuchecks 07/15/17 07/15/17 07/15/17 19:17 13:08 06:47 POC Glucose 108 106 90 07/14/17 23:52 POC Glucose 113 H Phys Exam - Physical Examination HEENT: PERRLA, moist MMs, sclera anicteric, TM's clear, oral pharynx no lesions , 2+ tonsils Respiratory: no wheezing, no rales, no rhonchi, wheezing present, clear to auscultation bilateral Cardiovascular: RRR, no significant murmur, no rub, gallop, irregular Gastrointestinal: soft, non-tender, no distention, positive bowel sounds Musculoskeletal: no edema, pulses present, edema present Dx/Plan - Plan 1) hypertensive emergency 2) acute seizure 3) acute hypoxic resp failure requiring intubation on 07/12 4) ESRD 5) hyperkalemia plan: pt's home meds have been restarted. Noncompliance is a problem with him. Chichi started and eeg done no seizure activity noted. Neurology consulted. pt extubatabted on 07/14 per pulmonary. dialysis per nephrology. hyperkalemia improved. Pt on abx ppx. PT's mentation is improving. * . * . Review of Systems - Review of Systems Eyes: negative: Pain, Vision Change, Conjunctivae Inflammation, Eyelid Inflammation, Redness, Other ENT: negative: Ear Pain, Ear Discharge, Nose Pain, Nose Discharge, Nose Congestion, Mouth Pain, Mouth Swelling, Throat Pain, Throat Swelling, Other Respiratory: negative: Cough, Dry, Shortness of Breath, Hemoptysis, SOB with Excertion, Pleuritic Pain, Sputum, Wheezing Cardiovascular: negative: chest pain, palpitations, orthopnea, paroxysmal nocturnal dyspnea, edema, light headedness, other Gastrointestinal: negative: Nausea, Vomiting, Abdominal Pain, Diarrhea, Constipation, Melena, Hematochezia, Other Genitourinary: negative: Dysuria, Frequency, Incontinence, Hematuria, Retention , Other - Medications/Allergies Allergies/Adverse Reactions: Allergies Allergy/AdvReac Type Severity Reaction Status Date / Time hydrocodone bitartrate AdvReac Nausea Verified 06/08/16 11:46 [From Vicodin] Medications: Current Medications Acetaminophen (Tylenol) 650 mg PO Q4H PRN PRN Reason: Headache/Fever or Pain Acetaminophen (Tylenol) 650 mg PO Q4H PRN PRN Reason: Headache/Fever or Pain Albuterol/Ipratropium (Duoneb) 3 ml NEB [id number] PRN PRN Reason: SOB &/or Wheezing Amlodipine Besylate (Norvasc) 10 mg PO DAILY [facility] Last Admin: 07/15/17 15:09 Dose: 10 mg Aspirin (Ecotrin) 81 mg PO DAILY [facility] Last Admin: 07/15/17 08:25 Dose: 81 mg Cilostazol (Pletal) 100 mg PO BID [facility] Last Admin: 07/15/17 22:05 Dose: 100 mg Clonidine (Catapres) 0.1 mg PO BID [facility] Last Admin: 07/15/17 22:17 Dose: Not Given Famotidine (Pepcid) 20 mg PO DAILY [facility] Last Admin: 07/15/17 08:25 Dose: 20 mg Heparin Sodium (Porcine) (Heparin) 5,000 units SC BID [facility] Last Admin: 07/15/17 21:03 Dose: 5,000 units Levetiracetam 500 mg/ Device 100 mls @ 200 mls/hr IVPB 0500,1700 [facility] Last Admin: 07/16/17 06:12 Dose: 100 mls Piperacillin Sod/Tazobactam (Sod 2.25 gm/ Sodium Chloride) 100 mls @ 200 mls/ hr IVPB Q8HR [facility] Last Admin: 07/16/17 06:12 Dose: 100 mls Insulin Human Regular (Humulin R) 0 units SC .MILD SLIDING SCALE PRN PRN Reason: Mild Correctional Scale Labetalol HCl (Normodyne) 20 mg SLOW IVP Q15MIN PRN PRN Reason: SBP Greater Than 180 Last Admin: 07/14/17 13:06 Dose: 20 mg Lorazepam (Ativan) 2 mg SLOW IVP Q1H PRN PRN Reason: Breakthrough agitation Stop: 08/12/17 08:57 Mineral Oil/White Petrolatum (Lacri-Lube Ointment) 0 gm EA EYE PRN PRN PRN Reason: Dry Eyes Discontinue Previous Narcotic Pain Medications And Benzodiazepines 1 each FS .ONE [facility] Stop: 08/12/17 08:57 Senna (Senokot) 2 tab PO HSPRN PRN PRN Reason: Constipation
[2017-07-16 04:59] LABS: Anion Gap 18 mmol/L (10-20); BUN (Urea Nitrogen) 45 mg/dL (8.4-25.7); Calc. Creatinine Clearance 9 mL/min (70-130); Carbon Dioxide 27 mmol/L (23-31); Chloride 98 mmol/L (98-107); Estimated GFR-MDRD 10; Glucose 83 mg/dL (83-110); Magnesium 2.4 mg/dL (1.6-2.6); Potassium 4.4 mmol/L (3.5-5.1); Sodium 139 mmol/L (136-145)
[2017-07-16 05:13] LABS: Band 2 % (5-11); Eosinophils 3 % (0-10); Hemoglobin 8.9 g/dL (14.0-18.0); Lymphocytes 18 % (21-51); MDiff Complete? YES; Mean Corpuscular HGB CONC 33.3 g/dL (32.0-36.0); Mean Corpuscular Hemoglobin 33.5 pg (27.0-31.0); Mean Platelet Volume 7.9 fL (7.4-10.4); Monocytes 10 % (0-10); Neutrophil 67 % (42-75); Platelet Count 213 thou/uL (130-400); RBC Distribution Width 14.1 % (11.5-14.5); Red Blood Cell (RBC) Count 2.66 mill/uL (4.70-6.10); White Blood Cell (WBC) Count 9.4 thou/uL (4.8-10.8)
[2017-07-16] MEDS: Piperacillin/Tazobactam 2.25 GM in Sodium Chloride 0.9% 100 ML IVPB SCH ×3 (06:12→23:18)
[2017-07-16] MEDS: Cilostazol 100 MG TAB PO SCH ×2 (10:42→22:31)
[2017-07-16] MEDS: Famotidine 20 MG TAB PO SCH (10:42)
[2017-07-16] MEDS: cloNIDine 0.1 MG TAB PO SCH ×2 (10:43→22:31)
[2017-07-16] MEDS: Amlodipine 10 MG TAB PO SCH (10:43)
[2017-07-16] MEDS: Aspirin 81 mg Enteric Coated Tablet PO SCH (10:44)
[2017-07-16] MEDS: Heparin 5,000 UNITS/ML VIAL SC SCH ×2 (10:51→22:31)
--- NOTE | 2017-07-16 11:27 | PRG ---
DATE OF SERVICE: 07/16/2017 SUBJECTIVE: A 72-year-old gentleman being seen for end-stage renal disease. The patient denies any nausea, vomiting or chest pain. PHYSICAL EXAMINATION: GENERAL: Patient is awake, alert. VITAL SIGNS: Afebrile, pulse 75, breathing 16, blood pressure 147/36. HEAD/NECK: Normocephalic. Atraumatic. EYES: EOMI. No deformity. EARS: Clear. No ulcers. NOSE: Intact. No lesions. MOUTH: Clear. No discharge. THROAT: Clear. No exudate. LUNGS: Clear. No crackles. CARDIAC: S1, S2. No rub. ABDOMEN: Benign. BS+. GENITALIA/RECTUM: Weiner absent. BACK/EXTREMITIES: Edema 0+ Ulcer- NEUROLOGICAL: Alert and motor intact. SKIN: Rash- Bruise- LYMPHATICS: Edema- Ulcer- LABORATORY DATA: Show hemoglobin 8.9. ASSESSMENT AND RECOMMENDATIONS: 1. Stage 6 chronic kidney disease. Continue hemodialysis Monday, Monday, and Monday. 2. Hypertension, stable. 3. Anemia, stable. 4. Medications based on glomerular filtration rate are appropriate.
--- NOTE | 2017-07-16 13:47 | PDOC.PN ---
- Subjective Encounter Start Date: 07/16/17 Encounter Start Time: 10:30 Subjective: pt up in bed no complains - Objective Resuscitation Status: Resuscitation Status FULL:Full Resuscitation Vital Signs & Weight: Vital Signs (12 hours) Temp Pulse Resp BP Pulse Ox 07/16/17 12:00 98.1 F 07/16/17 10:43 71 147/36 H 07/16/17 08:00 98.3 F 67 19 96 07/16/17 04:00 97.7 F Weight Admit Weight 139 lb Weight 123 lb 7.342 oz Most Recent Monitor Data Heart Rate from ECG 77 NIBP 168/43 NIBP BP-Mean 90 Respiration from ECG 24 SpO2 98 I&O: 07/15/17 07/16/17 07/17/17 06:59 06:59 06:59 Intake Total 500 740 150 Output Total 0 0 0 Balance 500 740 150 Result Diagrams: 07/16/17 03:44 07/16/17 03:44 Additional Labs: Accuchecks 07/16/17 07/16/17 07/15/17 11:42 06:25 23:27 POC Glucose 86 84 109 07/15/17 19:17 POC Glucose 108 Phys Exam - Physical Examination HEENT: PERRLA, moist MMs, sclera anicteric, TM's clear, oral pharynx no lesions , 2+ tonsils Neck: no nodes, no JVD, supple, full ROM Respiratory: no wheezing, no rales, no rhonchi, wheezing present, clear to auscultation bilateral Cardiovascular: RRR, no significant murmur, no rub, gallop, irregular Gastrointestinal: soft, non-tender, no distention, positive bowel sounds Neurological: non-focal, normal sensation, moves all 4 limbs Dx/Plan - Plan 1) hypertensive emergency 2) acute seizure 3) acute hypoxic resp failure requiring intubation on 07/12 4) ESRD 5) hyperkalemia plan: pt's home meds have been restarted. Noncompliance is a problem with him. Keemra started and eeg done no seizure activity noted. Neurology consulted. pt extubatabted on 07/14 per pulmonary. dialysis per nephrology. hyperkalemia improved. Pt on abx ppx. PT's mentation is improving. spoke with pt's family about pt's noncompliance. According to family this is a ongoing problem and pt does not listen to them inregards to the improtance of taking his meds. Family also states that pt has been eating junk food a lot. * .. Review of Systems - Review of Systems Eyes: negative: Pain, Vision Change, Conjunctivae Inflammation, Eyelid Inflammation, Redness, Other ENT: negative: Ear Pain, Ear Discharge, Nose Pain, Nose Discharge, Nose Congestion, Mouth Pain, Mouth Swelling, Throat Pain, Throat Swelling, Other Gastrointestinal: negative: Nausea, Vomiting, Abdominal Pain, Diarrhea, Constipation, Melena, Hematochezia, Other Genitourinary: negative: Dysuria, Frequency, Incontinence, Hematuria, Retention , Other - Medications/Allergies Allergies/Adverse Reactions: Allergies Allergy/AdvReac Type Severity Reaction Status Date / Time hydrocodone bitartrate AdvReac Nausea Verified 06/08/16 11:46 [From Vicodin] Medications: Current Medications Acetaminophen (Tylenol) 650 mg PO Q4H PRN PRN Reason: Headache/Fever or Pain Acetaminophen (Tylenol) 650 mg PO Q4H PRN PRN Reason: Headache/Fever or Pain Albuterol/Ipratropium (Duoneb) 3 ml NEB [id number] PRN PRN Reason: SOB &/or Wheezing Amlodipine Besylate (Norvasc) 10 mg PO DAILY [facility] Last Admin: 07/16/17 10:43 Dose: 10 mg Aspirin (Ecotrin) 81 mg PO DAILY [facility] Last Admin: 07/16/17 10:44 Dose: 81 mg Cilostazol (Pletal) 100 mg PO BID [facility] Last Admin: 07/16/17 10:42 Dose: 100 mg Clonidine (Catapres) 0.1 mg PO BID [facility] Last Admin: 07/16/17 10:43 Dose: 0.1 mg Famotidine (Pepcid) 20 mg PO DAILY [facility] Last Admin: 07/16/17 10:42 Dose: 20 mg Heparin Sodium (Porcine) (Heparin) 5,000 units SC BID [facility] Last Admin: 07/16/17 10:51 Dose: 5,000 units Levetiracetam 500 mg/ Device 100 mls @ 200 mls/hr IVPB 0500,1700 [facility] Last Admin: 07/16/17 06:12 Dose: 100 mls Piperacillin Sod/Tazobactam (Sod 2.25 gm/ Sodium Chloride) 100 mls @ 200 mls/ hr IVPB Q8HR [facility] Last Admin: 07/16/17 06:12 Dose: 100 mls Insulin Human Regular (Humulin R) 0 units SC .MILD SLIDING SCALE PRN PRN Reason: Mild Correctional Scale Labetalol HCl (Normodyne) 20 mg SLOW IVP Q15MIN PRN PRN Reason: SBP Greater Than 180 Last Admin: 07/14/17 13:06 Dose: 20 mg Lorazepam (Ativan) 2 mg SLOW IVP Q1H PRN PRN Reason: Breakthrough agitation Stop: 08/12/17 08:57 Mineral Oil/White Petrolatum (Lacri-Lube Ointment) 0 gm EA EYE PRN PRN PRN Reason: Dry Eyes Discontinue Previous Narcotic Pain Medications And Benzodiazepines 1 each FS .ONE [facility] Stop: 08/12/17 08:57 Senna (Senokot) 2 tab PO HSPRN PRN PRN Reason: Constipation
--- NOTE | 2017-07-16 15:52 | PRG ---
DATE OF SERVICE: 07/16/2017 SUBJECTIVE: Mr. Higuera had no problems overnight. OBJECTIVE: VITAL SIGNS: He is afebrile, blood pressure 142/42, heart rate 77, respiratory rates 18s to low 20s. Intake and outputs negative 150. LUNGS: His lungs are clear. HEART: Regular rhythm, no S3. ABDOMEN: Soft and nontender. EXTREMITIES: Without asymmetry or edema. He moves all four extremities. IMPRESSION: 1. Status post hypertensive crisis with a seizure and respiratory failure, clinically doing well. 2. End-stage renal disease. PLAN: Transfer out of the critical care unit seems reasonable at this point. OTHER PROBLEMS: Resolving encephalopathy and sinusitis.
[2017-07-17 06:08] LABS: Band 4 % (5-11); Eosinophils 8 % (0-10); Hemoglobin 8.8 g/dL (14.0-18.0); Lymphocytes 23 % (21-51); MDiff Complete? YES; Mean Corpuscular HGB CONC 33.4 g/dL (32.0-36.0); Mean Corpuscular Hemoglobin 34.2 pg (27.0-31.0); Monocytes 13 % (0-10); Neutrophil 52 % (42-75); Platelet Count 209 thou/uL (130-400); RBC Distribution Width 13.9 % (11.5-14.5); Red Blood Cell (RBC) Count 2.57 mill/uL (4.70-6.10); White Blood Cell (WBC) Count 8.3 thou/uL (4.8-10.8)
[2017-07-17] MEDS: Piperacillin/Tazobactam 2.25 GM in Sodium Chloride 0.9% 100 ML IVPB SCH ×3 (06:32→21:13)
[2017-07-17] MEDS ORDERED: Losartan 25 MG TAB PO SCH ×2 (11:00→11:15)
--- NOTE | 2017-07-17 11:53 | PRG ---
DATE OF SERVICE: 07/17/2017 NEPHROLOGY PROGRESS NOTE SUBJECTIVE: Patient was seen and examined at bedside and overnight events noted. Patient denies any shortness of breath or chest pain or palpitation. No history of nausea or vomiting or diarrhea or f ever or chills or cramps. OBJECTIVE: GENERAL: This is a well-built male in no apparent distress. VITAL SIGNS: Temperature 97.5, pulse 70, respiratory rate 16, blood pressure 188/78. HEENT: Atraumatic, normocephalic. Oral mucosa is moist. NECK: Supple. CARDIOVASCULAR: S1, S2 heard. Rate and rhythm regular. RESPIRATORY: Clear to auscultation. GASTROINTESTINAL: Abdomen is soft. MUSCULOSKELETAL: No tenderness. No edema. DERMATOLOGIC: No skin rash. NEUROLOGIC: Alert and awake and oriented x3. No focal neurologic deficits. Moving all the extremiti es. PSYCHIATRIC: Mood and affect normal. LABORATORY DATA: Not done today. ASSESSMENT AND PLAN: 1. End-stage renal disease. We will continue on dialysis. Patient was seen during dialysis, tolera ting well. We will continue dialysis Monday, Monday, Monday. 2. Hypertension. Attempt to remove fluid with dialysis. 3. Anemia. Hemoglobin is low and we will add Epogen as tolerated. 4. Edema, controlled. 5. We will continue on dialysis as tolerated. We will add Epogen.
[2017-07-17] MEDS: cloNIDine 0.1 MG TAB PO SCH ×2 (13:53→21:12)
[2017-07-17] MEDS: Cilostazol 100 MG TAB PO SCH ×2 (13:53→21:12)
[2017-07-17] MEDS: Heparin 5,000 UNITS/ML VIAL SC SCH ×2 (13:54→21:12)
[2017-07-17] MEDS: Aspirin 81 mg Enteric Coated Tablet PO SCH (14:07)
[2017-07-17] MEDS: Acetaminophen 325 MG TAB PO PRN (14:07)
[2017-07-17] MEDS: Amlodipine 10 MG TAB PO SCH (14:07)
[2017-07-17] MEDS: Famotidine 20 MG TAB PO SCH (14:08)
[2017-07-17 14:19] VITALS: BMI 23.1
--- NOTE | 2017-07-17 14:42 | PDOC.PN ---
- Subjective Encounter Start Date: 07/17/17 Encounter Start Time: 10:30 Subjective: pt up in dialysis no complains - Objective Resuscitation Status: Resuscitation Status FULL:Full Resuscitation Vital Signs & Weight: Vital Signs (12 hours) Temp Pulse Resp BP BP Pulse Ox 07/17/17 14:07 158/71 H 07/17/17 13:53 147/36 H 07/17/17 07:25 67 28 H 188/78 H 97 07/17/17 04:46 179/77 H 07/17/17 04:00 97.5 F L 70 16 182/73 H 92 L Weight Admit Weight 139 lb Weight 138 lb 12.8 oz Most Recent Monitor Data Heart Rate from ECG 77 NIBP 168/43 NIBP BP-Mean 90 Respiration from ECG 24 SpO2 98 I&O: 07/16/17 07/17/17 07/18/17 06:59 06:59 06:59 Intake Total 740 1020 Output Total 0 0 Balance 740 1020 Result Diagrams: 07/17/17 05:02 07/16/17 03:44 Additional Labs: Accuchecks 07/17/17 07/17/17 07/16/17 13:56 05:48 23:13 POC Glucose 97 117 H 130 H 07/16/17 16:46 POC Glucose 129 H Phys Exam - Physical Examination HEENT: PERRLA, moist MMs, sclera anicteric, TM's clear, oral pharynx no lesions , 2+ tonsils Neck: no nodes, no JVD, supple, full ROM Respiratory: no wheezing, no rales, no rhonchi, wheezing present, clear to auscultation bilateral Cardiovascular: RRR, no significant murmur, no rub, gallop, irregular Gastrointestinal: soft, non-tender, no distention, positive bowel sounds Dx/Plan - Plan 1) hypertensive emergency 2) acute seizure 3) acute hypoxic resp failure requiring intubation on 07/12 4) ESRD 5) hyperkalemia plan: pt's home meds have been restarted. Noncompliance is a problem with him. Keppra started and eeg done no seizure activity noted. Neurology consulted. pt extubatabted on 07/14 per pulmonary. dialysis per nephrology. hyperkalemia improved. Pt on abx ppx. PT's mentation is improving. spoke with pt's family about pt's noncompliance. According to family this is a ongoing problem and pt does not listen to them inregards to the improtance of taking his meds. Family also states that pt has been eating junk food a lot. 07/17 bp meds added, pt to be discharged to snf once bp is controlled. continue keppra. * .. * . Review of Systems - Review of Systems ENT: negative: Ear Pain, Ear Discharge, Nose Pain, Nose Discharge, Nose Congestion, Mouth Pain, Mouth Swelling, Throat Pain, Throat Swelling, Other Cardiovascular: negative: chest pain, palpitations, orthopnea, paroxysmal nocturnal dyspnea, edema, light headedness, other Gastrointestinal: negative: Nausea, Vomiting, Abdominal Pain, Diarrhea, Constipation, Melena, Hematochezia, Other Genitourinary: negative: Dysuria, Frequency, Incontinence, Hematuria, Retention , Other Musculoskeletal: Neck Pain Skin: negative: Rash, Lesions, [place], Bruising, Other Neurological: negative: Weakness, Numbness, Incoordination, Change in Speech, Confusion, Seizures, Other - Medications/Allergies Allergies/Adverse Reactions: Allergies Allergy/AdvReac Type Severity Reaction Status Date / Time hydrocodone bitartrate AdvReac Nausea Verified 06/08/16 11:46 [From Vicodin] Medications: Current Medications Acetaminophen (Tylenol) 650 mg PO Q4H PRN PRN Reason: Headache/Fever or Pain Last Admin: 07/17/17 14:07 Dose: 650 mg Albuterol/Ipratropium (Duoneb) 3 ml NEB [id number] PRN PRN Reason: SOB &/or Wheezing Amlodipine Besylate (Norvasc) 10 mg PO DAILY [facility] Last Admin: 07/17/17 14:07 Dose: 10 mg Aspirin (Ecotrin) 81 mg PO DAILY [facility] Last Admin: 07/17/17 14:07 Dose: 81 mg Cilostazol (Pletal) 100 mg PO BID [facility] Last Admin: 07/17/17 13:53 Dose: Not Given Clonidine (Catapres) 0.1 mg PO BID [facility] Last Admin: 07/17/17 13:53 Dose: Not Given Epoetin Puneet (Procrit) 10,000 units IVP [id number]@0900 [facility] Famotidine (Pepcid) 20 mg PO DAILY [facility] Last Admin: 07/17/17 14:08 Dose: 20 mg Heparin Sodium (Porcine) (Heparin) 5,000 units SC BID [facility] Last Admin: 07/17/17 13:54 Dose: Not Given Piperacillin Sod/Tazobactam (Sod 2.25 gm/ Sodium Chloride) 100 mls @ 200 mls/ hr IVPB Q8HR [facility] Last Admin: 07/17/17 14:05 Dose: 100 mls Insulin Human Regular (Humulin R) 0 units SC .MILD SLIDING SCALE PRN PRN Reason: Mild Correctional Scale Labetalol HCl (Normodyne) 20 mg SLOW IVP Q15MIN PRN PRN Reason: SBP Greater Than 180 Last Admin: 07/14/17 13:06 Dose: 20 mg Levetiracetam (Keppra) 500 mg PO BID [facility] Lorazepam (Ativan) 2 mg SLOW IVP Q1H PRN PRN Reason: Breakthrough agitation Stop: 08/12/17 08:57 Losartan Potassium (Cozaar) 50 mg PO DAILY [facility] Mineral Oil/White Petrolatum (Lacri-Lube Ointment) 0 gm EA EYE PRN PRN PRN Reason: Dry Eyes Discontinue Previous Narcotic Pain Medications And Benzodiazepines 1 each FS .ONE [facility] Stop: 08/12/17 08:57 Senna (Senokot) 2 tab PO HSPRN PRN PRN Reason: Constipation Sodium Chloride (Flush - Normal Saline) 10 ml IVF Q12HR [facility] Last Admin: 07/17/17 14:05 Dose: 10 ml Sodium Chloride (Flush - Normal Saline) 10 ml IVF PRN PRN PRN Reason: Saline Flush
[2017-07-17] MEDS ORDERED: levETIRAcetam 500 MG TAB PO SCH (21:00)
[2017-07-17] MEDS: levETIRAcetam 500 mg/5 ml Oral Solution PO SCH (21:13)
[2017-07-18 05:26] LABS: Eosinophils 6 % (0-10); Hemoglobin 9.1 g/dL (14.0-18.0); Lymphocytes 24 % (21-51); MDiff Complete? YES; Mean Corpuscular HGB CONC 34.3 g/dL (32.0-36.0); Mean Corpuscular Hemoglobin 34.2 pg (27.0-31.0); Mean Corpuscular Volume 99.6 fl (80.0-94.0); Mean Platelet Volume 7.8 fL (7.4-10.4); Monocytes 8 % (0-10); Neutrophil 61 % (42-75); Platelet Count 223 thou/uL (130-400); RBC Distribution Width 13.8 % (11.5-14.5); Red Blood Cell (RBC) Count 2.67 mill/uL (4.70-6.10); White Blood Cell (WBC) Count 6.3 thou/uL (4.8-10.8)
[2017-07-18] MEDS: Piperacillin/Tazobactam 2.25 GM in Sodium Chloride 0.9% 100 ML IVPB SCH ×3 (06:51→21:04)
[2017-07-18] MEDS: Losartan 25 MG TAB PO SCH (09:00)
[2017-07-18] MEDS: Cilostazol 100 MG TAB PO SCH ×2 (09:01→21:03)
[2017-07-18] MEDS: Aspirin 81 mg Enteric Coated Tablet PO SCH (09:01)
[2017-07-18] MEDS: Amlodipine 10 MG TAB PO SCH (09:01)
[2017-07-18] MEDS: cloNIDine 0.1 MG TAB PO SCH ×2 (09:01→21:03)
[2017-07-18] MEDS: Heparin 5,000 UNITS/ML VIAL SC SCH ×2 (09:02→21:04)
[2017-07-18] MEDS: levETIRAcetam 500 mg/5 ml Oral Solution PO SCH ×2 (09:02→21:03)
[2017-07-18] MEDS: Famotidine 20 MG TAB PO SCH (09:02)
--- NOTE | 2017-07-18 10:45 | EEG ---
Referring Physician: DR. DODIE FLAHERTY EEG # [id number] PROCEDURE: Inpatient portable electroencephalogram. NAME OF PATIENT: Donnie PORTER DATE OF : 1945 DATE EEG DONE: 07/13/2017 REFERRING, MMaria Ines.: Dr. Dodie Flaherty INDICATION: Seizures. REPORT: This is a 22-channel digital EEG recording utilizing 10-20 international electrode placement system on a patient who presents with seizure. The patient is intubated, but not on sedation and appears to be awake in between. During wakefulness, the background activity is asymmetric between 2 hemispheres. In the right hemisphere, the background activity consists of low to moderate amplitude 7-8 Hz rhythm which is reactive in nature. In the left hemisphere, slowing is noted throughout the recording, the background activity consists of low amplitude theta activity of 4-5 Hz mixed with some Delta activity, it is not much reactive in nature. There is myogenic activity noted in both hemispheres with movement. DROWSINESS AND SLEEP: There are periods of drowsiness where there is decreased myogenic activity. The left hemisphere slowing is noted during that stage. INDUCTION: HYPERVENTILATION: Could not be performed. PHOTIC STIMULATION: No photic drive seen. ABNORMALITIES: Left hemisphere slowing noted throughout the recording, however , no clear convincing epileptiform activity noted, no electrographic seizures noted. Patient does not appear to be in status epilepticus. EK per minute. IMPRESSION: EEG shows slowing in the left hemisphere throughout the recording, suggestive of nonspecific left hemisphere cerebral dysfunction, underlying structural pathology should be ruled out. However, there is no clear convincing epileptiform activity noted. No electrographic seizures noted. The patient does not appear to be in status epilepticus. Clinical correlation recommended. Criminal Research Specialist: TEE [employer] Cloth Binding Cutter: [email or web address]
--- NOTE | 2017-07-18 11:20 | PRG ---
DATE OF SERVICE: 07/18/2017 SERVICE: Pulmonary Medicine. INTERVAL HISTORY: The patient is doing great from a respiratory standpoint. He is breathing comfortably. He has been weaned down to room air. His saturations are 97%. Otherwise, there has been no interval change to his condition. PHYSICAL EXAMINATION: VITAL SIGNS: Afebrile, pulse 73, blood pressure 150/70, respirations 18, saturation 97% on room air. GENERAL: The patient is awake and alert. He is in no apparent distress. He is breathing comfortably. There is no prolonged expiratory phase or wheezing present. HEART: Normal rate, regular. ABDOMEN: Soft, nontender, and nondistended. Bowel sounds are positive. MUSCULOSKELETAL: No cyanosis or clubbing. There is no pitting in the unilateral extremity. GENITOURINARY: No Weiner. NEUROLOGIC: Grossly nonfocal. LABORATORY DATA: WBC 6.3, hemoglobin 9.1, platelets 223,000. Blood sugar runs between 97 and 136. ASSESSMENT: 1. Seizure, possibly secondary to hypertensive event. 2. Acute hypoxic respiratory failure, resolved. 3. PEA arrest, brief. 4. Metabolic encephalopathy, resolved. 5. End-stage renal disease. 6. Hypertension. 7. Sinusitis. DISCUSSION AND PLAN: The patient is doing fantastic from a respiratory standpoint. As such, he has no further requirements for inpatient Pulmonary or Critical Care opinion. We require Augmentin for total duration of 10 days and stop day is already there. Please call with additional questions or concerns or if the patient's condition deteriorates, but at this point, we will sign off. [email or web address]
--- NOTE | 2017-07-18 14:29 | PDOC.PN ---
- Subjective Encounter Start Date: 07/18/17 Encounter Start Time: 11:00 Patient is seen today confused and disoriented, also patient at bedside, nigerian speaking. expained patient has seizures, on medication. - Objective Resuscitation Status: Resuscitation Status FULL:Full Resuscitation MAR Reviewed: Yes Vital Signs & Weight: Vital Signs (12 hours) Temp Pulse Pulse Pulse Resp BP BP 07/18/17 11:26 98.4 F 67 18 07/18/17 11:09 24 H 07/18/17 10:10 79 68 163/68 H 116/58 L 07/18/17 08:57 98.0 F 73 18 07/18/17 08:55 98.0 F 73 18 07/18/17 04:00 98 F 60 18 BP Pulse Ox Pulse Ox Pulse Ox 07/18/17 11:26 126/58 L 93 L 07/18/17 11:09 72 L 07/18/17 10:10 93 L 84 L 07/18/17 08:57 07/18/17 08:55 158/70 H 94 L 07/18/17 04:00 178/74 H 90 L Weight Admit Weight 139 lb Weight 123 lb 6.4 oz Most Recent Monitor Data Heart Rate from ECG 77 NIBP 168/43 NIBP BP-Mean 90 Respiration from ECG 24 SpO2 98 I&O: 07/17/17 07/18/17 07/19/17 06:59 06:59 06:59 Intake Total 1020 458 Output Total 0 2600 Balance 1020 -2142 Result Diagrams: 07/18/17 04:51 07/16/17 03:44 Additional Labs: Accuchecks 07/18/17 07/18/17 07/17/17 12:14 05:58 20:55 POC Glucose 120 H 110 136 H 07/17/17 16:56 POC Glucose 122 H Radiology Reviewed by me: Yes EKG Reviewed by me: Yes Phys Exam - Physical Examination HEENT: PERRLA, moist MMs Neck: no JVD Respiratory: no wheezing, no rales Cardiovascular: RRR, no significant murmur Gastrointestinal: soft, non-tender Musculoskeletal: no edema, pulses present Neurological: non-focal, normal sensation Lymphatic: no nodes Skin: no rash, normal turgor Dx/Plan (1) Encephalopathy acute Code(s): G93.40 - ENCEPHALOPATHY, UNSPECIFIED Status: Acute Comment: Likely from [facility], pt is on keppra, following Neurology. (2) Hyperkalemia Code(s): E87.5 - HYPERKALEMIA Status: Acute Comment: resolved. (3) Hypertensive urgency Code(s): I16.0 - HYPERTENSIVE URGENCY Status: Acute Comment: continue HD per Renal service, serial BP monitoring, resume home Norvasc and Losartan (4) CAD (coronary artery disease) Code(s): I25.10 - ATHSCL HEART DISEASE OF [place] CORONARY ARTERY W/O ANG PCTRS Status: Chronic Comment: Stable, no ACS, continue ASA 81mg daily, Lipitor 10mg HS (5) ESRD (end stage renal disease) on dialysis Code(s): N18.6 - END STAGE RENAL DISEASE; Z99.2 - DEPENDENCE ON RENAL DIALYSIS Status: Chronic Comment: HD per Renal service - Plan cont current plan of care, plan discussed w/ family, PT/OT, social sciences lecturer, respiratory therapy, incentive spirometry, out of bed/ambulate, DVT proph w/SCDs * . - Discharge Day Encounter end time: 11:35 Review of Systems - Review of Systems Eyes: negative: Pain, Vision Change, Conjunctivae Inflammation, Eyelid Inflammation, Redness, Other ENT: negative: Ear Pain, Ear Discharge, Nose Pain, Nose Discharge, Nose Congestion, Mouth Pain, Mouth Swelling, Throat Pain, Throat Swelling, Other Respiratory: negative: Cough, Dry, Shortness of Breath, Hemoptysis, SOB with Excertion, Pleuritic Pain, Sputum, Wheezing Cardiovascular: negative: chest pain, palpitations, orthopnea, paroxysmal nocturnal dyspnea, edema, light headedness, other Gastrointestinal: negative: Nausea, Vomiting, Abdominal Pain, Diarrhea, Constipation, Melena, Hematochezia, Other Musculoskeletal: negative: Neck Pain, Shoulder Pain, Arm Pain, Back Pain, Hand Pain, Leg Pain, Foot Pain, Other - Medications/Allergies Allergies/Adverse Reactions: Allergies Allergy/AdvReac Type Severity Reaction Status Date / Time hydrocodone bitartrate AdvReac Nausea Verified 06/08/16 11:46 [From Vicodin] Medications: Current Medications Acetaminophen (Tylenol) 650 mg PO Q4H PRN PRN Reason: Headache/Fever or Pain Last Admin: 07/17/17 14:07 Dose: 650 mg Albuterol/Ipratropium (Duoneb) 3 ml NEB [id number] PRN PRN Reason: SOB &/or Wheezing Amlodipine Besylate (Norvasc) 10 mg PO DAILY [facility] Last Admin: 07/18/17 09:01 Dose: 10 mg Aspirin (Ecotrin) 81 mg PO DAILY [facility] Last Admin: 07/18/17 09:01 Dose: 81 mg Cilostazol (Pletal) 100 mg PO BID [facility] Last Admin: 07/18/17 09:01 Dose: 100 mg Clonidine (Catapres) 0.1 mg PO BID [facility] Last Admin: 07/18/17 09:01 Dose: 0.1 mg Epoetin Puneet (Procrit) 10,000 units IVP MoWeFr@0900 [facility] Famotidine (Pepcid) 20 mg PO DAILY [facility] Last Admin: 07/18/17 09:02 Dose: 20 mg Heparin Sodium (Porcine) (Heparin) 5,000 units SC BID [facility] Last Admin: 07/18/17 09:02 Dose: 5,000 units Piperacillin Sod/Tazobactam (Sod 2.25 gm/ Sodium Chloride) 100 mls @ 200 mls/ hr IVPB Q8HR [facility] Last Admin: 07/18/17 06:51 Dose: 100 mls Insulin Human Regular (Humulin R) 0 units SC .MILD SLIDING SCALE PRN PRN Reason: Mild Correctional Scale Labetalol HCl (Normodyne) 20 mg SLOW IVP Q15MIN PRN PRN Reason: SBP Greater Than 180 Last Admin: 07/14/17 13:06 Dose: 20 mg Levetiracetam (Keppra Oral Solution) 500 mg PO BID [facility] Last Admin: 07/18/17 09:02 Dose: 500 mg Lorazepam (Ativan) 2 mg SLOW IVP Q1H PRN PRN Reason: Breakthrough agitation Stop: 08/12/17 08:57 Losartan Potassium (Cozaar) 50 mg PO DAILY [facility] Last Admin: 07/18/17 09:00 Dose: 50 mg Mineral Oil/White Petrolatum (Lacri-Lube Ointment) 0 gm EA EYE PRN PRN PRN Reason: Dry Eyes Discontinue Previous Narcotic Pain Medications And Benzodiazepines 1 each FS .ONE [facility] Stop: 08/12/17 08:57 Senna (Senokot) 2 tab PO HSPRN PRN PRN Reason: Constipation Last Admin: 07/18/17 11:18 Dose: 2 tab Sodium Chloride (Flush - Normal Saline) 10 ml IVF Q12HR [facility] Last Admin: 07/18/17 09:06 Dose: 10 ml Sodium Chloride (Flush - Normal Saline) 10 ml IVF PRN PRN PRN Reason: Saline Flush
[2017-07-19] MEDS: Piperacillin/Tazobactam 2.25 GM in Sodium Chloride 0.9% 100 ML IVPB SCH ×3 (05:57→20:49)
[2017-07-19] MEDS ORDERED: Epoetin (NON-ESRD) 20,000 UNITS/ML ML IVP SCH (09:00)
[2017-07-19] MEDS: Amlodipine 10 MG TAB PO SCH (09:38)
[2017-07-19] MEDS: Losartan 25 MG TAB PO SCH (09:38)
[2017-07-19] MEDS: cloNIDine 0.1 MG TAB PO SCH ×2 (09:39→20:10)
[2017-07-19] MEDS: Famotidine 20 MG TAB PO SCH (09:41)
[2017-07-19] MEDS: Aspirin 81 mg Enteric Coated Tablet PO SCH (09:41)
[2017-07-19] MEDS: Cilostazol 100 MG TAB PO SCH ×2 (09:41→20:27)
[2017-07-19] MEDS: levETIRAcetam 500 mg/5 ml Oral Solution PO SCH ×2 (09:42→20:10)
[2017-07-19] MEDS: Heparin 5,000 UNITS/ML VIAL SC SCH ×2 (09:42→20:10)
--- NOTE | 2017-07-19 17:31 | PRG ---
DATE OF SERVICE: 07/19/2017 SUBJECTIVE: Patient was seen and examined at bedside and overnight events noted. Patient denies any shortness of breath or chest pain or palpitation. No history of nausea or vomiting or diarrhea or f ever or chills or cramps. OBJECTIVE: GENERAL: This is a well-built male in no apparent distress. VITAL SIGNS: Temperature is 95, pulse 69, respiratory rate 18 and blood pressure 123/56. HEENT: Atraumatic, normocephalic. Oral mucosa is moist. NECK: Supple. CARDIOVASCULAR: S1, S2 heard. Rate and rhythm regular. RESPIRATORY: Clear to auscultation. GASTROINTESTINAL: Abdomen is soft. MUSCULOSKELETAL: No tenderness. No edema. DERMATOLOGIC: No skin rash. NEUROLOGIC: Alert and awake and oriented x3. No focal neurologic deficits. Moving all the extremit ies. PSYCHIATRIC: Mood and affect normal. LABORATORY DATA: Not done today. ASSESSMENT AND PLAN: 1. End-stage renal disease. Continue on hemodialysis as tolerated. 2. Edema. 3. Hypertension, stable. 4. Anemia. Currently on dialysis Monday, Monday and Monday. The patient was seen during dialysis and tolerat ing well.
--- NOTE | 2017-07-19 18:50 | PRG ---
DATE OF SERVICE: 07/18/2017 SUBJECTIVE: Patient was seen and examined at bedside and overnight events noted. Patient denies any shortness of breath or chest pain or palpitation. No history of nausea or vomiting or diarrhea or f ever or chills or cramps. OBJECTIVE: GENERAL: Well-built male in no apparent distress. VITAL SIGNS: Temperature 98.6, pulse 72, respiration 18, blood pressure 158/70. HEENT: Atraumatic, normocephalic. Oral mucosa is moist. NECK: Supple. CARDIOVASCULAR: S1, S2 heard. Rate and rhythm regular. RESPIRATORY: Clear to auscultation. GASTROINTESTINAL: Abdomen is soft. MUSCULOSKELETAL: No tenderness. No edema. DERMATOLOGIC: No skin rash. NEUROLOGIC: Alert and awake and oriented x3. No focal neurologic deficits. Moving all the extremit ies. PSYCHIATRIC: Mood and affect normal LABORATORY DATA: Not done. ASSESSMENT AND PLAN: 1. End-stage renal disease. Continue hemodialysis Monday, Monday, and Monday. 2. Edema, controlled. 3. Hypertension. 4. Anemia. Plan is to continue on dialysis Monday, Monday, and Monday.
[2017-07-19] MEDS: Acetaminophen 325 MG TAB PO PRN (19:49)
[2017-07-20] MEDS: Piperacillin/Tazobactam 2.25 GM in Sodium Chloride 0.9% 100 ML IVPB SCH ×2 (05:44→15:49)
[2017-07-20 09:19] VITALS: BP 192/75; TEMP 98.4
[2017-07-20] MEDS: levETIRAcetam 500 mg/5 ml Oral Solution PO SCH (09:30)
[2017-07-20] MEDS: Losartan 25 MG TAB PO SCH (09:30)
[2017-07-20] MEDS: Heparin 5,000 UNITS/ML VIAL SC SCH (09:30)
[2017-07-20] MEDS: Amlodipine 10 MG TAB PO SCH (09:30)
[2017-07-20] MEDS: Aspirin 81 mg Enteric Coated Tablet PO SCH (09:31)
[2017-07-20] MEDS: Famotidine 20 MG TAB PO SCH (09:31)
[2017-07-20] MEDS: Cilostazol 100 MG TAB PO SCH (09:31)
[2017-07-20] MEDS: cloNIDine 0.1 MG TAB PO SCH (09:31)
--- NOTE | 2017-07-20 10:34 | PDOC.PN ---
- Subjective Encounter Start Date: 07/20/17 Encounter Start Time: 14:00 PAtient is seen today, drowsy a tthe HD. No concenrrnoted. again pt is french speaking. - Objective Resuscitation Status: Resuscitation Status FULL:Full Resuscitation MAR Reviewed: Yes Vital Signs & Weight: Vital Signs (12 hours) Temp Pulse Resp BP BP Pulse Ox 07/20/17 09:31 192/75 H 07/20/17 09:30 69 192/75 H 07/20/17 08:00 98.4 F 69 16 192/75 H 94 L 07/20/17 04:00 98.3 F 66 20 168/55 H 99 07/20/17 00:00 98.1 F 70 20 110/50 L 97 Weight Admit Weight 139 lb Weight 122 lb 12.76 oz Most Recent Monitor Data Heart Rate from ECG 77 NIBP 168/43 NIBP BP-Mean 90 Respiration from ECG 24 SpO2 98 I&O: 07/19/17 07/20/17 07/21/17 06:59 06:59 06:59 Intake Total 320 540 Output Total 0 Balance 320 540 Result Diagrams: 07/18/17 04:51 07/16/17 03:44 Additional Labs: Accuchecks 07/20/17 07/19/17 07/19/17 05:00 20:13 17:28 POC Glucose 109 186 H 103 07/19/17 11:40 POC Glucose 96 Phys Exam - Physical Examination HEENT: PERRLA, moist MMs Neck: no nodes, no JVD Respiratory: no wheezing, no rales Cardiovascular: RRR, no significant murmur Gastrointestinal: soft, non-tender Musculoskeletal: no edema, pulses present Dx/Plan (1) Encephalopathy acute Code(s): G93.40 - ENCEPHALOPATHY, UNSPECIFIED Status: Acute Comment: [facility], pt is on keppra, following Neurology. (2) Hyperkalemia Code(s): E87.5 - HYPERKALEMIA Status: Acute Comment: resolved. (3) Hypertensive urgency Code(s): I16.0 - HYPERTENSIVE URGENCY Status: Acute Comment: continue HD per Renal service, serial BP monitoring, resume home Norvasc and Losartan (4) CAD (coronary artery disease) Code(s): I25.10 - ATHSCL HEART DISEASE OF [place] CORONARY ARTERY W/O ANG PCTRS Status: Chronic Comment: Stable, no ACS, continue ASA 81mg daily, Lipitor 10mg HS (5) ESRD (end stage renal disease) on dialysis Code(s): N18.6 - END STAGE RENAL DISEASE; Z99.2 - DEPENDENCE ON RENAL DIALYSIS Status: Chronic Comment: HD per Renal service - Plan cont current plan of care, continue antibiotics, PT/OT, respiratory therapy, incentive spirometry, DVT proph w/lovenox * . - Discharge Day Encounter end time: 15:35 Review of Systems - Review of Systems Other: UNABLE TO GET ros DUE TO LANGUAGE BARRIER - Medications/Allergies Allergies/Adverse Reactions: Allergies Allergy/AdvReac Type Severity Reaction Status Date / Time hydrocodone bitartrate AdvReac Nausea Verified 06/08/16 11:46 [From Vicodin] Medications: Current Medications Acetaminophen (Tylenol) 650 mg PO Q4H PRN PRN Reason: Headache/Fever or Pain Last Admin: 07/19/17 19:49 Dose: 650 mg Albuterol/Ipratropium (Duoneb) 3 ml NEB [id number] PRN PRN Reason: SOB &/or Wheezing Amlodipine Besylate (Norvasc) 10 mg PO DAILY [facility] Last Admin: 07/20/17 09:30 Dose: 10 mg Aspirin (Ecotrin) 81 mg PO DAILY [facility] Last Admin: 07/20/17 09:31 Dose: 81 mg Cilostazol (Pletal) 100 mg PO BID [facility] Last Admin: 07/20/17 09:31 Dose: 100 mg Clonidine (Catapres) 0.1 mg PO BID [facility] Last Admin: 07/20/17 09:31 Dose: 0.1 mg Epoetin Puneet (Procrit) 10,000 units IVP MoWeFr@0900 [facility] Last Admin: 07/19/17 14:23 Dose: 10,000 units Famotidine (Pepcid) 20 mg PO DAILY [facility] Last Admin: 07/20/17 09:31 Dose: 20 mg Heparin Sodium (Porcine) (Heparin) 5,000 units SC BID [facility] Last Admin: 07/20/17 09:30 Dose: 5,000 units Piperacillin Sod/Tazobactam (Sod 2.25 gm/ Sodium Chloride) 100 mls @ 200 mls/ hr IVPB Q8HR [facility] Last Admin: 07/20/17 05:44 Dose: 100 mls Insulin Human Regular (Humulin R) 0 units SC .MILD SLIDING SCALE PRN PRN Reason: Mild Correctional Scale Labetalol HCl (Normodyne) 20 mg SLOW IVP Q15MIN PRN PRN Reason: SBP Greater Than 180 Last Admin: 07/14/17 13:06 Dose: 20 mg Levetiracetam (Keppra Oral Solution) 500 mg PO BID [facility] Last Admin: 07/20/17 09:30 Dose: 500 mg Lorazepam (Ativan) 2 mg SLOW IVP Q1H PRN PRN Reason: Breakthrough agitation Stop: 08/12/17 08:57 Losartan Potassium (Cozaar) 50 mg PO DAILY [facility] Last Admin: 07/20/17 09:30 Dose: 50 mg Mineral Oil/White Petrolatum (Lacri-Lube Ointment) 0 gm EA EYE PRN PRN PRN Reason: Dry Eyes Discontinue Previous Narcotic Pain Medications And Benzodiazepines 1 each FS .ONE [facility] Stop: 08/12/17 08:57 Senna (Senokot) 2 tab PO HSPRN PRN PRN Reason: Constipation Last Admin: 07/18/17 11:18 Dose: 2 tab Sodium Chloride (Flush - Normal Saline) 10 ml IVF Q12HR [facility] Last Admin: 07/20/17 09:31 Dose: 10 ml Sodium Chloride (Flush - Normal Saline) 10 ml IVF PRN PRN PRN Reason: Saline Flush Last Admin: 07/19/17 05:58 Dose: 10 ml
--- NOTE | 2017-07-20 20:03 | PRG ---
DATE OF SERVICE: 07/20/2017 NEPHROLOGY PROGRESS NOTE SUBJECTIVE: Patient was seen and examined at bedside and overnight events noted. Patient denies any shortness of breath or chest pain or palpitation. No history of nausea or vomiting or diarrhea or f ever or chills or cramps. OBJECTIVE: GENERAL: This is a well-built male in no apparent distress. VITAL SIGNS: Temperature 98.3, pulse 62, respiratory rate 20, blood pressure 168/55. HEENT: Atraumatic, normocephalic. Oral mucosa is moist. NECK: Supple. CARDIOVASCULAR: S1, S2 heard. Rate and rhythm regular. RESPIRATORY: Clear to auscultation. GASTROINTESTINAL: Abdomen is soft. MUSCULOSKELETAL: No tenderness. No edema. DERMATOLOGIC: No skin rash. NEUROLOGIC: Alert and awake and oriented x3. No focal neurologic deficits. Moving all the extremiti es. PSYCHIATRIC: Mood and affect normal. LABORATORY DATA: No labs done today. ASSESSMENT AND PLAN: 1. End-stage renal disease. Continue on hemodialysis Monday, Monday and Monday. 2. Edema, controlled. 3. Hypertension. 4. Anemia. 5. Overall, tolerating dialysis well. Continue on dialysis as tolerated.
--- NOTE | 2017-07-21 10:54 | DIS ---
DATE OF ADMISSION: 07/12/2017 DATE OF DISCHARGE: 07/19/2017 ADMITTING DIAGNOSIS: Acute tonic-clonic seizure. DISCHARGE DIAGNOSIS: Acute tonic-clonic seizure. SECONDARY DIAGNOSES: 1. End-stage renal disease. 2. Acute encephalopathy. 3. Hypertensive urgency. 4. Acute hypoxic respiratory failure. 5. Hyperkalemia. CONSULTANTS INVOLVED IN THE CARE: Dr. Edna Vasquez and Dr. Blood from Nephrology. HISTORY OF PRESENT ILLNESS AND HOSPITAL COURSE: In brief, this is a 72-year-old male who pr esented to the hospital with confusional state brought by the family members and the patient was supp osed to get for hemodialysis. Patient developed another episode of acute tonic clonic seizure. For airway protection, patient was intubated and was transferred to the ICU. Patient was closely m onitored, had an EEG, which was unremarkable. He was seen by Neurology also during this admission. Patient denied having any chest pain. Patient later was extubated once his seizures were controlled and patient was transferred to the floor. The patient had markedly elevated blood pressures which we re controlled following hemodialysis and his home hypertensive medications were optimized. The patient was doing fine and the patient was discharged later home on home medications. The patien t was stable on the day of discharge. PHYSICAL EXAMINATION: On date of discharge: VITAL SIGNS: Blood pressures were 168/55, heart rate is 66, respirations 20, saturation is 99%. GENERAL: The patient is moderately built, moderately nourished. CARDIOVASCULAR: S1, S2 normal. No murmurs, rubs or gallops. LUNGS: Bilateral air entry was equal. No wheezing, no crackles. ABDOMEN: Soft, nontender. No guarding. No rebound tenderness. Bowel sounds normal. MUSCULOSKELETAL: No calf tenderness. No pedal edema. No joint tenderness. No joint swelling. HOME MEDICATIONS: 1. Amlodipine 10 mg p.o. daily. 2. Augmentin 875 mg p.o. b.i.d. 3. Cilostazol 100 mg p.o. b.i.d. 3. Clonidine 0.4 mg p.o. b.i.d. 4. Keppra 500 mg p.o. b.i.d. 5. Losartan 50 mg p.o. daily. DISCHARGE INSTRUCTIONS: Continue activity as tolerated. Advised to follow up with hemodialysis pr[facility]. Otherwise, continue with the renal diet. Advised to continue on the home medications for blood pressures and follow up with primary care physi pattie in one week for rechecking the blood pressures. I spent 35 minutes with this patient on the day of discharge.
== END 2017-07-20 15:39 | DRG 100 ==
LOC: ERS 08:10 → CCU 11:38 → 2NO 07-16 14:21 → T4-A 07-19 12:35
PROVIDERS: ADMIT Internal Medicine; ATTEND Internal Medicine
PROC: 0BH18EZ Insertion of Endotracheal Airway into Trachea, Via Natural or Artificial Opening Endoscopic (ICD-10-PCS; principal; 2017-07-12)
PROC: 5A1945Z Respiratory Ventilation, 24-96 Consecutive Hours (ICD-10-PCS; 2017-07-12)
PROC: 5A1D70Z Performance of Urinary Filtration, Intermittent, Less than 6 Hours Per Day (ICD-10-PCS; 2017-07-12)
PROC: 5A12012 Performance of Cardiac Output, Single, Manual (ICD-10-PCS; 2017-07-12)
PROC: 4A00X4Z Measurement of Central Nervous Electrical Activity, External Approach (ICD-10-PCS; 2017-07-13)
PROC: 5A1D70Z Performance of Urinary Filtration, Intermittent, Less than 6 Hours Per Day (ICD-10-PCS; 2017-07-14)
PROC: 5A1D70Z Performance of Urinary Filtration, Intermittent, Less than 6 Hours Per Day (ICD-10-PCS; 2017-07-17)
PROC: 5A1D70Z Performance of Urinary Filtration, Intermittent, Less than 6 Hours Per Day (ICD-10-PCS; 2017-07-19)
DX: G40.409 Other generalized epilepsy and epileptic syndromes, not intractable, without status epilepticus (principal); N18.6 End stage renal disease; J96.01 Acute respiratory failure with hypoxia; I46.9 Cardiac arrest, cause unspecified; G93.41 Metabolic encephalopathy; G93.1 Anoxic brain damage, not elsewhere classified; I12.0 Hypertensive chronic kidney disease with stage 5 chronic kidney disease or end stage renal disease; I16.1 Hypertensive emergency; E11.22 Type 2 diabetes mellitus with diabetic chronic kidney disease; E87.5 Hyperkalemia; Z99.2 Dependence on renal dialysis; I25.10 Atherosclerotic heart disease of native coronary artery without angina pectoris; Z89.511 Acquired absence of right leg below knee; Z88.5 Allergy status to narcotic agent; Z79.82 Long term (current) use of aspirin; Z91.14 Patient's other noncompliance with medication regimen; J32.9 Chronic sinusitis, unspecified; D63.1 Anemia in chronic kidney disease; E78.5 Hyperlipidemia, unspecified; I44.0 Atrioventricular block, first degree; Z79.899 Other long term (current) drug therapy
CPT/HCPCS: 36415; 36416; 70450; 71045; 80048; 80053; 82553; 82805; 83605; 83735; 83880; 84100; 84443; 84484; 85007; 85025; 85027; 85610; 90935; 92950; 93005; 94002; 94003; 94760; 95816; 95819; 96365; 96366; A4216; G0257; G8978-GP-CM; G8979-GP-CJ; G8996-GN-CI; G8997-GN-CK; J0885; J1644; J1953; J2270; J2543; J2704; J7050

== ENCOUNTER 2017-10-30 14:51 | Inpatient (IN) | payer MEDICARE, MEDICAID ==
[2017-10-30] MEDS ORDERED: Ondansetron HCl/PF 4 MG/2 ML Vial ONE (15:24)
[2017-10-30] MEDS ORDERED: Ondansetron ODT 4 MG TAB ONE (15:24)
[2017-10-30 15:49] LABS: #Eosinphils 0.1 thou/uL (0.0-0.7); #Lymphocytes 0.9 thou/uL (1.20-3.40); #Monocytes 0.4 thou/uL (0.11-0.59); #Neutrophils 12.7 thou/uL (1.40-6.50); %Basophils 0.2 % (0.0-1.0); %Eosinophils 0.5 % (0.0-10.0); %Lymphocytes 6.5 % (21.0-51.0); %Monocytes 2.6 % (0.0-10.0); %Neutrophils 90.2 % (42.0-75.0); Hemoglobin 11.1 g/dL (14.0-18.0); Mean Corpuscular HGB CONC 34.5 g/dL (32.0-36.0); Mean Corpuscular Hemoglobin 33.5 pg (27.0-31.0); Mean Platelet Volume 6.9 fL (7.4-10.4); Platelet Count 195 thou/uL (130-400); RBC Distribution Width 13.5 % (11.5-14.5); Red Blood Cell (RBC) Count 3.31 mill/uL (4.70-6.10)
--- NOTE | 2017-10-30 16:04 | RAD ---
CHEST 1 VIEW: Date: 10/30/17 HISTORY: Fever. COMPARISON: Chest radiograph dated 07/12/17. FINDINGS: Lungs are hypoinflated. There are linear opacities of both lower lobes and along the hilum. Pulmonary arteries are dilated. Heart size is enlarged. Mild pulmonary venous congestion. IMPRESSION: 1. Cardiomegaly and mild volume overload. 2. Pulmonary arterial hypertension. 3. Linear opacities both lung bases with poor inspiratory effort, likely atelectasis. Infection felt somewhat less likely. POS: C
[2017-10-30 16:10] LABS: ALT (SGPT) 14 U/L (8-55); AST (SGOT) 11 U/L (5-34); Albumin 4.4 g/dL (3.4-4.8); Alkaline Phosphatase 72 U/L (40-150); Anion Gap 19 mmol/L (10-20); BUN (Urea Nitrogen) 15 mg/dL (8.4-25.7); Bilirubin, Total 0.6 mg/dL (0.2-1.2); CK (CPK) 117 U/L (30-200); Calc. Creatinine Clearance 0 mL/min (70-130); Calcium 8.9 mg/dL (7.8-10.44); Carbon Dioxide 30 mmol/L (23-31); Chloride 94 mmol/L (98-107); Estimated GFR-MDRD 18; Globulin 3.1 g/dL (2.4-3.5); Glucose 97 mg/dL (83-110); Protein, Total 7.5 g/dL (5.8-8.1); Sodium 139 mmol/L (136-145)
[2017-10-30 16:15] LABS: CKMB 1.3 ng/mL (0-6.6); Troponin I Less than 0.010 ng/mL (< 0.028)
[2017-10-30] MEDS ORDERED: Piperacillin/Tazobactam 4.5 GM VIAL ONE (17:39)
[2017-10-30] MEDS ORDERED: Ibuprofen 800 MG TAB ONE (18:49)
[2017-10-30 20:03] LABS: Lactic Acid 0.9 mmol/L (0.5-2.2)
[2017-10-30] MEDS ORDERED: Acetaminophen 325 MG TAB PO PRN (20:23)
[2017-10-30] MEDS ORDERED: hydrALAZINE 20 MG/ML VIAL SLOW IVP PRN (20:23)
[2017-10-30] MEDS ORDERED: Dextrose 50% Abboject 50 ML SYRINGE SLOW IVP PRN (20:23)
[2017-10-30] MEDS ORDERED: HumaLOG 300 UNITS/3 ML VIAL SC PRN ×2 (20:23)
[2017-10-30] MEDS ORDERED: Dextrose 5% in Water 1,000 ML IV PRN (20:23)
[2017-10-30] MEDS ORDERED: Vancomycin Sliding Scale 1 EACH FS ONE (20:45)
[2017-10-30] MEDS ORDERED: Vancomycin HCl 500 MG in Sodium Chloride 0.9% 100 ML IVPB SCH (20:45)
[2017-10-30] MEDS ORDERED: Vancomycin HCl 1 GM in Premix Bag 1 BAG IVPB SCH (20:45)
[2017-10-30] MEDS ORDERED: Vancomycin HCl 750 MG in Sodium Chloride 0.9% 250 ML 250 ML IVPB SCH (20:45)
[2017-10-30] MEDS ORDERED: Vancomycin HCl 1.25 GM in Sodium Chloride 0.9% 250 ML 250 ML IVPB SCH (20:45)
[2017-10-30] MEDS ORDERED: HOLD VANCOMYCIN FOR LEVEL >20 FS SCH (20:45)
[2017-10-30 21:03] VITALS: BMI 23.4
[2017-10-30] MEDS: Heparin 5,000 UNITS/ML VIAL SC SCH (21:29)
[2017-10-30] MEDS: levETIRAcetam 500 mg/5 ml Oral Solution PO SCH (21:29)
[2017-10-30] MEDS: Docusate 100 MG CAP PO SCH (21:30)
--- NOTE | 2017-10-31 00:11 | HP ---
PRIMARY CARE PHYSICIAN: Logan Higuera MD CHIEF COMPLAINT: Chills during dialysis. HISTORY OF PRESENT ILLNESS: Mr. Higuera is a very pleasant 72-year-old gentleman that has a history of end-stage renal disease on hemodialysis. He was in his usual state of health until during the end of dialysis, the patient began to get some shaking chills and they checked his temperature and he wa s febrile with a temperature of 102. For this reason, he was sent to the emergency room for evaluati on. He was also very tremulous, otherwise no significant problems. The patient actually is feeling much better now. No complaints, he has had an occasional cough which has been more or less nonproduc tive. His [id number] who is at the bedside says that he is supposed to be eating a mechanical s oft diet, but he does not stick to this and she notices that sometimes he may make cough after eating , but otherwise no other symptoms, no chest pain, no abdominal pain, no nausea, no vomiting, no skin rashes or abnormal cuts, etc. REVIEW OF SYSTEMS: All systems were reviewed and are negative except for that mentioned in the histo ry of present illness. PAST MEDICAL HISTORY: Significant for end-stage renal disease on hemodialysis, hypertension, diabete s mellitus, seizure disorder, recently diagnosed, history of previous cerebrovascular accident. PAST SURGICAL HISTORY: He has had a dialysis shunt placed in the left upper extremity, amputation of the right lower extremity. SOCIAL HISTORY: He is . He is a nonsmoker, nondrinker. No history of any tobacco use or maria m g use. He would like to be a full code. ALLERGIES: He had a bad reaction to HYDROCODONE. FAMILY HISTORY: No history of any inheritable diseases. CURRENT MEDICATIONS: His esbanqza-yv-sxg is not sure, he says it is similar to what he had been disc harged on before. This was amlodipine 10 mg daily, Augmentin, cilostazol 100 mg twice daily, clonidi ne 0.4 mg twice a day, Keppra 500 mg twice daily and losartan 50 mg daily. PHYSICAL EXAMINATION: GENERAL: He is alert and oriented. He appears to be in no acute distress. He is well-developed and well-nourished. VITAL SIGNS: His blood pressure was 158/80, heart rate in the 80s, respiratory rate is 16, temperatu re was 102.3. HEENT: Pupils are equal, round, and reactive. Extraocular muscles are intact. Sclerae are anicteri c. Throat: There is no erythema, no exudates. NECK: No adenopathy. He has no bruits. LUNGS: He has got bilateral rales at the bases. No wheezing, no rhonchi. CARDIOVASCULAR: He has a normal S1 and S2. There is no S3 or S4. No murmurs, no rubs. ABDOMEN: Soft, it is nontender, nondistended. Positive for bowel sounds. No rebound or guarding. EXTREMITIES: The left lower extremity, there is some 1+ edema, some changes associated with chronic venous stasis. He has got a toe amputation on that foot of the fifth toe. No skin lesions. Palpabl e dorsalis pedis pulses. NEUROLOGIC: The exam is grossly nonfocal. LABORATORY DATA: Sodium 139, potassium 4.0, chloride is 94, CO2 is 30, BUN of 15, creatinine 3.32, g lucose is 97. Troponin is less than 0.010. White blood cell count 14, hemoglobin 11.1, hematocrit i s 32.1, platelet count is 195. Chest x-ray was significant for cardiomegaly and some mild volume overload, some pulmonary artery hyp ertension. There was linear opacities in both lungs with poor inspiratory effort, likely atelectasis . ASSESSMENT AND PLAN: 1. This is a pleasant 72-year-old gentleman who presents to the emergency room with fever as well as chills. He also had an elevated white blood cell count. He is at risk for hematogenous infection a s he is on dialysis. He will be admitted, started on empiric broad spectrum IV antibiotics to cover for Staph as well as gram negative organisms. Blood cultures have already been obtained. He does no t make urine, so therefore, urine culture was not taken. We will need to reconcile his home medicati ons for hypertension as well as diabetes and seizure disorder. 2. We will continue Keppra as was previously ordered on his last admission; however, this will need to be clarified. He will also be placed on sliding scale insulin. His unit coordinator will be consulte d to continue his maintenance hemodialysis. We will trend his white blood cell count as well.
--- NOTE | 2017-10-31 02:54 | CON ---
NEPHROLOGY CONSULT DATE OF CONSULTATION: 10/30/2017 REASON FOR CONSULTATION: End-stage renal disease, on maintenance hemodialysis. HISTORY OF PRESENT ILLNESS: This is a very pleasant 72-year-old gentleman who dialysis noted f ever, chills, was sent to the emergency room. The patient denies headache, numbness, tingling, or we akness. He has had some cough. PAST MEDICAL HISTORY: Significant for end-stage renal disease, hypertension, anemia, amputation, AV fistula, DVT. SOCIAL HISTORY: No alcohol or drug use. FAMILY HISTORY: Negative for ESRD. HOME MEDICATIONS: List reviewed. HOSPITAL MEDICATIONS: List reviewed. ALLERGIES: Reviewed. REVIEW OF SYSTEMS: A 15-point review of systems was performed and negative except positives noted ab ove. GENERAL: Weakness- HEAD: Headache- NECK: No swelling or lumps. NOSE: No epistaxis or discharge. EYES: No diplopia or pain. RESPIRATORY: Dyspnea- CARDIOVASCULAR: Chest pain- GASTROINTESTINAL: Nausea- /MASTER SCHEDULER: Hematuria- MUSCULOSKELETAL: No joint pain. NEUROPSYCHIATIC SYSTEMS: No suicidal ideation. No ideation. SKIN: Denies any rash or ulcer. CONSTITUTIONAL: No fever or chills. PHYSICAL EXAMINATION: GENERAL: Patient was awake, alert. VITAL SIGNS: Afebrile, pulse 75, breathing 16, blood pressure was 155/75. GENERAL APPEARANCE AND MENTAL STATUS: Fair. HEAD/NECK: Normocephalic. Atraumatic. EYES: EOMI. No deformity. EARS: Clear. No ulcers. NOSE: Intact. No lesions. MOUTH: Clear. No discharge. THROAT: Clear. No exudate. LUNGS: Clear. No crackles. CARDIAC: S1, S2. No rub. ABDOMEN: Benign. BS+. GENITALIA/RECTUM: Weienr absent. BACK/EXTREMITIES: Edema 0+ Ulcer- NEUROLOGICAL: Alert and motor intact. SKIN: Rash- Bruise- LYMPHATICS: Edema- Ulcer- LABORATORY DATA: Shows hemoglobin 11. Potassium is 4. ASSESSMENT AND PLAN: 1. End-stage chronic kidney disease. Plan hemodialysis on Monday, Monday, and Monday. 2. Hypertension, stable. 3. Anemia, stable. 4. Sepsis and pneumonia management per primary team.
[2017-10-31] MEDS: Piperacillin/Tazobactam 2.25 GM in Sodium Chloride 0.9% 100 ML IVPB SCH ×3 (03:06→17:51)
[2017-10-31 06:00] LABS: #Basophils 0.1 thou/uL (0.0-0.2); #Lymphocytes 1.2 thou/uL (1.20-3.40); #Monocytes 0.5 thou/uL (0.11-0.59); %Basophils 0.7 % (0.0-1.0); %Eosinophils 0.4 % (0.0-10.0); %Lymphocytes 12.4 % (21.0-51.0); %Monocytes 4.6 % (0.0-10.0); %Neutrophils 81.9 % (42.0-75.0); Hemoglobin 9.5 g/dL (14.0-18.0); Mean Corpuscular HGB CONC 34.6 g/dL (32.0-36.0); Mean Platelet Volume 7.2 fL (7.4-10.4); Platelet Count 148 thou/uL (130-400); RBC Distribution Width 13.5 % (11.5-14.5); Red Blood Cell (RBC) Count 2.81 mill/uL (4.70-6.10); White Blood Cell (WBC) Count 9.8 thou/uL (4.8-10.8)
[2017-10-31 06:13] LABS: Anion Gap 16 mmol/L (10-20); BUN (Urea Nitrogen) 23 mg/dL (8.4-25.7); Calc. Creatinine Clearance 14 mL/min (70-130); Calcium 8.2 mg/dL (7.8-10.44); Carbon Dioxide 32 mmol/L (23-31); Chloride 95 mmol/L (98-107); Estimated GFR-MDRD 13; Glucose 88 mg/dL (83-110); Potassium 4.4 mmol/L (3.5-5.1); Sodium 139 mmol/L (136-145)
[2017-10-31] MEDS ORDERED: Vancomycin HCl 1 GM in Premix Bag 1 BAG IVPB SCH (09:00)
[2017-10-31] MEDS: Famotidine 20 MG TAB PO SCH (09:18)
[2017-10-31] MEDS: Heparin 5,000 UNITS/ML VIAL SC SCH ×3 (09:18→21:02)
[2017-10-31] MEDS: Docusate 100 MG CAP PO SCH ×2 (09:19→21:02)
[2017-10-31] MEDS: levETIRAcetam 500 mg/5 ml Oral Solution PO SCH ×2 (09:19→21:02)
[2017-10-31] MEDS: Amlodipine 10 MG TAB PO SCH (09:19)
[2017-10-31] MEDS: Aspirin 81 mg Enteric Coated Tablet PO SCH (09:19)
--- NOTE | 2017-10-31 11:50 | PDOC.PN ---
- Subjective Encounter Start Date: 10/31/17 Encounter Start Time: 11:49 Mr. Higuera was seen today in follow-up. He does not have any complaints this morning. - Objective Resuscitation Status: Resuscitation Status FULL:Full Resuscitation MAR Reviewed: Yes Vital Signs & Weight: Vital Signs (12 hours) Temp Pulse Resp BP Pulse Ox 10/31/17 09:19 70 10/31/17 08:15 98.5 F 70 12 10/31/17 08:00 98.5 F 70 12 153/69 H 85 L 10/31/17 03:26 97.8 F 67 20 131/62 98 Weight Weight 149 lb 14.629 oz I&O: 10/30/17 10/31/17 11/01/17 06:59 06:59 06:59 Intake Total 100 Balance 100 Result Diagrams: 10/31/17 05:00 10/31/17 05:00 Additional Labs: Accuchecks 10/31/17 10/31/17 10/30/17 11:03 05:24 21:28 POC Glucose 147 H 96 118 H Phys Exam - Physical Examination HEENT: PERRLA Respiratory: no wheezing, no rales, no rhonchi, clear to auscultation bilateral Cardiovascular: RRR + 2/6 systolic Gastrointestinal: soft, non-tender, positive bowel sounds Musculoskeletal: edema present + trace edema, slightly diminished distal pulse Dx/Plan (1) Bacteremia due to group B Streptococcus Code(s): R78.81 - BACTEREMIA Status: Acute (2) CAD (coronary artery disease) Code(s): I25.10 - ATHSCL HEART DISEASE OF [place] CORONARY ARTERY W/O ANG PCTRS Status: Chronic Comment: Stable, no ACS, continue ASA 81mg daily, Lipitor 10mg HS (3) ESRD (end stage renal disease) on dialysis Code(s): N18.6 - END STAGE RENAL DISEASE; Z99.2 - DEPENDENCE ON RENAL DIALYSIS Status: Chronic Comment: HD per Renal service (4) HTN (hypertension) Code(s): I10 - ESSENTIAL (PRIMARY) HYPERTENSION Status: Chronic Qualifiers: Hypertension type: essential hypertension Qualified Code(s): I10 - Essential (primary) hypertension Comment: labile, see #1, resume home BP regimen - Plan * Strep- bacteremia- will discontinue Vancomycin, and change to Rocephin * Consult ID, and will order an Echo * ESRD- continue dialysis as indicated * HTN - blood pressure is stable * DM- diabetes- a bit labile- monitor for hypoglycemia- as his insulin was held due to low blood glucose last night..
--- NOTE | 2017-10-31 12:37 | PRG ---
DATE OF SERVICE: 10/31/2017 SUBJECTIVE: This is a 72-year-old gentleman being seen for end-stage renal disease. The patient den ies any nausea, vomiting or chest pain. PHYSICAL EXAMINATION: GENERAL: Patient is awake, alert. VITAL SIGNS: Afebrile, pulse 65, breathing 16, blood pressure 154/72. OBJECTIVE: See above. Awake, alert, in no acute distress. GENERAL APPEARANCE AND MENTAL STATUS: Fair. HEAD/NECK: Normocephalic. Atraumatic. EYES: EOMI. No deformity. EARS: Clear. No ulcers. NOSE: Intact. No lesions. MOUTH: Clear. No discharge. THROAT: Clear. No exudate. LUNGS: Clear. No crackles. CARDIAC: S1, S2. No rub. ABDOMEN: Benign. BS+. GENITALIA/RECTUM: Weiner absent. BACK/EXTREMITIES: Edema 0+ Ulcer- NEUROLOGICAL: Alert and motor intact. SKIN: Rash- Bruise- LYMPHATICS: Edema- Ulcer- LABORATORY: Hemoglobin 9.5. ASSESSMENT AND PLAN: 1. Stage 6 chronic kidney disease, on hemodialysis Monday, Monday, Monday. 2. Hypertension, stable. 3. Anemia, stable. 4. Medications based on glomerular filtration rate are appropriate.
[2017-10-31] MEDS ORDERED: cefTRIAXone\\ROCEPHIN 1 GM in Sodium Chloride 0.9% 100 ML IVPB SCH (13:00)
[2017-11-01] MEDS: Piperacillin/Tazobactam 2.25 GM in Sodium Chloride 0.9% 100 ML IVPB SCH ×2 (01:11→10:32)
--- NOTE | 2017-11-01 08:07 | CON ---
DATE OF CONSULTATION: 11/01/2017 REASON FOR CONSULTATION: Bacteremia. HISTORY OF PRESENT ILLNESS: A 72-year-old patient who has a history of type 2 diabetes mellitus, sei zure disorder and end-stage renal disease on hemodialysis through an AV fistula as well as prior CVA who was well until the end of recent dialysis when he developed fever with chills, temperature 102. He was sent to the emergency room and initial findings included a blood pressure 153/61, pulse 109, t emperature 102.7. His oximetry was 92%. He is alert and oriented. Neck was supple. Lungs with dim inished breath sounds. S1, S2, regular rate without murmurs. Abdomen is soft, not distended or tend er. Skin examination appeared normal. Initial results included white cell count 14,000, hemoglobin 11, MCV 97, platelets 195, 90% neutrophi ls and the sodium 139, creatinine 4.39. AST was 11, ALT 14, total bilirubin 0.6, alkaline phosphatas e 72. BNP 140, albumin 4.4, and globulin 3.1. Imaging studies include a chest x-ray with cardiomegaly, linear opacities likely due to atelectases, although infection is not ruled out. Last echocardiogram was done on admission and it demonstrated E F 45-50%, but no major valvular abnormalities. Microbiology with 2 sets of blood cultures with group B Streptococcus. The patient has been given ce ftriaxone and Zosyn. He is currently awake, appears in no distress. REVIEW OF SYSTEMS: Denies any headaches, no visual symptoms, sore throat, odynophagia, dysphagia, no toothache or back pain. A little bit of cough, no sputum production. Mild dyspnea. No abdominal p ain. No genital symptoms, no diarrhea or vomiting, no bleeding. No joint symptoms. No skin disorde r. PAST MEDICAL HISTORY: Type 2 diabetes, seizure disorder, prior CVA, end-stage renal disease on dialy sis through an AV fistula, hypertension. PAST SURGICAL HISTORY: AV fistula placement left upper extremity and patient had an above knee amput ation, right lower extremity in [place]. SOCIAL HISTORY: He lives in the area. . Never a smoker. ALLERGIES: No significant allergy except for intolerance to HYDROCODONE. FAMILY HISTORY: Noncontributory. CURRENT MEDICATIONS: Include Tylenol, Norvasc, Ecotrin, Rocephin, dextrose, Colace, Pepcid, glucagon , heparin, insulin, Keppra, Zosyn. PHYSICAL EXAMINATION: VITAL SIGNS: T-max 98.9, blood pressure 150/65, pulse 67, respirations 18, O2 sat 95% on 2 liters na duncan cannula. GENERAL: Appears in no distress, awake, oriented. The patient has a peripheral IV access. No Weiner catheter. No lymphadenopathy. HEENT: Ocular movements conjugate. Oral cavity not remarkable. NECK: Supple. No jugular distention. LUNGS: With faint basilar crackles, right and left hemithorax. CARDIOVASCULAR: S1, S2, without murmurs. ABDOMEN: Soft and not distended or tender. No bladder distention, no organomegaly. EXTREMITIES: No joint inflammatory activity. Pulses are 1+ in dorsalis pedis on the left side. 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 He moves extremit ies equally. NEUROLOGIC: His cognitive function appears to be intact. LABORATORY AND X-RAY FINDINGS: The latest laboratory results; white cell count down to 9.8, hemoglob in 9.5, MCV 98, platelets 148 with 81% neutrophils. ASSESSMENT: 1. Type 2 diabetes with end-stage renal disease on hemodialysis through an AV fistula. 2. History of seizure disorder. 3. Group B Streptococcus bacteremia. DISCUSSION: Differential diagnosis includes group B strep from a skin source that is not obvious at this time. No urine has been obtained since he is anuric. The patient does not have any genitourina ry symptoms either. No evidence of endocarditis at this point in time. The most likely scenario is a skin source with penetration, maybe during the dilative procedure and then transient bacteremia. O ther sites of dissemination are not apparent at this point in time and once he improves I would trans ition to vancomycin sliding scale for about 2 weeks total and then discontinue treatment. Possibilit y of pyelocystitis is considered, but he does not have any tenderness in suprapubic area and at this point in time, I would not recommend imaging studies. No evidence of spine or bone or joint involvem ent at this point in time.
[2017-11-01] MEDS ORDERED: Prevnar 13-Val Conj/PF 0.5 ML SYRINGE IM ONE (09:00)
[2017-11-01] MEDS: Aspirin 81 mg Enteric Coated Tablet PO SCH (09:11)
[2017-11-01] MEDS: Famotidine 20 MG TAB PO SCH (09:11)
[2017-11-01] MEDS: Docusate 100 MG CAP PO SCH (09:11)
[2017-11-01] MEDS: Heparin 5,000 UNITS/ML VIAL SC SCH (09:11)
[2017-11-01] MEDS: Amlodipine 10 MG TAB PO SCH (09:11)
[2017-11-01] MEDS: levETIRAcetam 500 mg/5 ml Oral Solution PO SCH (09:12)
[2017-11-01] MEDS ORDERED: Clopidogrel Bisulfate 75 MG TAB ONE (10:19)
--- NOTE | 2017-11-01 10:49 | PQF ---
CLINICAL DOCUMENTATION IMPROVEMENT CLARIFICATION FORM: ICD-10 Updated PLEASE DO AN ADDENDUM TO THE PROGRESS NOTE WITH ANY DOCUMENTATION UPDATES OR ADDITIONS AND CARRY THROUGH TO DC SUMMARY. THANK YOU. DATE: 11/01/17 ATTN: Dr. Ruby Cristina Please exercise your independent, professional judgment in responding to the clarification form. Clinical indicators are provided on the bottom of this form for your review Please check appropriate box(es): [ x ] Sepsis due to: ____Bacteremia [ ] Localized infection without sepsis [ ] Other diagnosis [ ] Unable to determine In addition, please specify: Present on Admission (POA): [ ] Yes [ ] No [ ] Unable to determine For continuity of documentation, please document condition throughout progress notes and discharge summary. Thank You. CLINICAL INDICATORS - SIGNS / SYMPTOMS / LABS ER RECORD 10/30: TEMP 102.7 RESP 22; PULSE 109 DX: SEPSIS H&P 10/30: TEMP 102 WBC 14 PN 10/31: STREP-BACTEREMIA - WILL DISCONTINUE VANCOMYCIN & CHANGE TO ROCEPHIN RISKS: H&P 10/30: ESRD [place] HEMODIALYSIS; HTN, DM. DIALYSIS SHUNT PLACED IN LUE. PN 10/31: BACTEREMIA D/T GROUP B STREPTOCOCCUS. TREATMENT: ID CONSULT CPOE 10/30: IV ZOSYN CPOE 10/31: IV ROCEPHIN Thank you, Nataliia (This form is maintained as a part of the permanent medical record) 2014 [employer] All Rights Reserved Nataliia Lombardo RN, BSN [email or web address] Office: [phone] [facility]
--- NOTE | 2017-11-01 11:06 | PRG ---
DATE OF SERVICE: 11/01/2017 SUBJECTIVE: This is a 72-year-old gentleman being seen for end-stage renal disease. The patient den ies any nausea, vomiting or chest pain. PHYSICAL EXAMINATION: GENERAL: Patient is awake, alert. VITAL SIGNS: Afebrile, pulse 69, breathing at 16, blood pressure 152/61. GENERAL APPEARANCE AND MENTAL STATUS: Fair. HEAD/NECK: Normocephalic. Atraumatic. EYES: EOMI. No deformity. EARS: Clear. No ulcers. NOSE: Intact. No lesions. MOUTH: Clear. No discharge. THROAT: Clear. No exudate. LUNGS: Clear. No crackles. CARDIAC: S1, S2. No rub. ABDOMEN: Benign. BS+. GENITALIA/RECTUM: Weiner absent. BACK/EXTREMITIES: Edema 0+ Ulcer-. NEUROLOGICAL: Alert and motor intact. SKIN: Rash- Bruise- LYMPHATICS: Edema- Ulcer-. LABORATORY DATA: Show hemoglobin 9.5. ASSESSMENT AND PLAN: 1. Stage 6 chronic kidney disease, we will plan hemodialysis today. 2. Hypertension, stable. 3. Anemia, stable. 4. Sepsis, improved.
[2017-11-01] MEDS ORDERED: Vancomycin HCl 500 MG in Sodium Chloride 0.9% 100 ML IVPB SCH (12:30)
[2017-11-01] MEDS ORDERED: Vancomycin HCl 750 MG in Sodium Chloride 0.9% 250 ML 250 ML IVPB SCH (12:30)
[2017-11-01] MEDS ORDERED: HOLD VANCOMYCIN FOR LEVEL >20 FS SCH (12:30)
[2017-11-01] MEDS ORDERED: Vancomycin HCl 1 GM in Premix Bag 1 BAG IVPB SCH (12:30)
[2017-11-01] MEDS ORDERED: Vancomycin HCl 250 MG in Sodium Chloride 0.9% 100 ML IVPB SCH (12:30)
--- NOTE | 2017-11-01 12:36 | PDOC.PN ---
- Subjective Encounter Start Date: 11/01/17 (f.u bacteremia) Encounter Start Time: 12:35 Subjective: Pt without complaints - denies n/v/abd pain/f/c/diarrhea/cp/sob -: Overall feeling well and ready to go home. - Objective Resuscitation Status: Resuscitation Status FULL:Full Resuscitation Vital Signs & Weight: Vital Signs (12 hours) Temp Pulse Resp BP BP Pulse Ox 11/01/17 12:00 98.4 F 69 14 160/70 H 93 L 11/01/17 09:11 69 152/65 H 11/01/17 07:38 98.3 F 69 16 152/65 H 92 L 11/01/17 04:00 98.2 F 67 18 157/65 H 95 Weight Weight 149 lb 14.629 oz I&O: 10/31/17 11/01/17 11/02/17 06:59 06:59 06:59 Intake Total 100 800 Balance 100 800 Result Diagrams: 10/31/17 05:00 10/31/17 05:00 Additional Labs: Accuchecks 11/01/17 11/01/17 10/31/17 10:29 05:41 20:21 POC Glucose 133 H 92 124 H 10/31/17 16:54 POC Glucose 117 H EKG Reviewed by me: Yes (tele - sinus with 1st degree AV block, 60-80's) Phys Exam - Physical Examination Constitutional: NAD Respiratory: no wheezing, no rales, no rhonchi some diminished breath sounds at the bases Cardiovascular: RRR, no significant murmur Gastrointestinal: soft, non-tender, no distention, positive bowel sounds Musculoskeletal: no edema AKA right side Neurological: non-focal Psychiatric: normal affect Skin: no rash Deviation from normal: no ttp along fistula in right forearm Dx/Plan (1) Sepsis Code(s): A41.9 - SEPSIS, UNSPECIFIED ORGANISM Status: Acute Qualifiers: Sepsis type: Streptococcus group B Qualified Code(s): A40.1 - Sepsis due to streptococcus, group B (2) Bacteremia due to group B Streptococcus Code(s): R78.81 - BACTEREMIA Status: Acute (3) Anemia Code(s): D64.9 - ANEMIA, UNSPECIFIED Status: Chronic Qualifiers: Anemia type: due to chronic kidney disease Chronic kidney disease stage: on chronic dialysis Qualified Code(s): N18.6 - End stage renal disease; D63.1 - Anemia in chronic kidney disease; D63.1 - Anemia in chronic kidney disease; Z99.2 - Dependence on renal dialysis; Z99.2 - Dependence on renal dialysis; Z99.2 - Dependence on renal dialysis; Z99.2 - Dependence on renal dialysis (4) Seizure disorder Code(s): G40.909 - EPILEPSY, UNSP, NOT INTRACTABLE, WITHOUT STATUS EPILEPTICUS Status: Chronic (5) CAD (coronary artery disease) Code(s): I25.10 - ATHSCL HEART DISEASE OF [place] CORONARY ARTERY W/O ANG PCTRS Status: Chronic (6) Dyslipidemia Code(s): E78.5 - HYPERLIPIDEMIA, UNSPECIFIED Status: Chronic (7) ESRD (end stage renal disease) on dialysis Code(s): N18.6 - END STAGE RENAL DISEASE; Z99.2 - DEPENDENCE ON RENAL DIALYSIS Status: Chronic (8) HTN (hypertension) Code(s): I10 - ESSENTIAL (PRIMARY) HYPERTENSION Status: Chronic Qualifiers: Hypertension type: essential hypertension Qualified Code(s): I10 - Essential (primary) hypertension - Plan * sepsis secondary to Bacteremia - appreciate ID consult - change back to Vancomycin, sliding scale with dialysis, for 2 weeks. Repeat blood cultures at the end of treatment and follow up with Dr. Hicks in the clinic. * * ESRD on HD - next dialysis today with Vanc sliding scale, per Dr. Lovell. Order is needed for the above to be delivered at [facility]. * * Other medical problems - continue home meds as ordered * * Anticipate home today after dialysis. * * dvt prophy - heparin * gi prophy - not indicated * code status full * * Reviewed all of the above with patient through video iron worker apprentice. No questions or further needs at end of eval.
--- NOTE | 2017-11-01 13:09 | DIS ---
DATE OF ADMISSION: 10/30/2017 DATE OF DISCHARGE: Anticipated 11/01/2017 CONSULTANTS: Dr. Lovell of Nephrology. Dr. Hicks of Infectious Disease. PROCEDURES PERFORMED: Hemodialysis on 11/01/2017. FINAL DIAGNOSES: 1. Sepsis secondary to Bacteremia from Strep agalactiae group B. 2. End-stage renal disease on hemodialysis. 3. Hypertension. 4. Diabetes mellitus type 2. 5. Seizure disorder. 6. History of stroke. 7. History of a right AKA. MEDICATIONS: Reconciled at discharge. NEW MEDICATION: Vancomycin IV, sliding scale and this will be delivered at hemodialysis starting on Friday 11/03 and continuing through 11/15 for a total of 2 weeks therapy. CONTINUED MEDICATIONS: 1. Tylenol 325 mg 2 tablets every 4 hours as needed. 2. Norvasc 10 mg daily. 3. Aspirin 81 mg daily. 4. Pletal 100 mg b.i.d. 5. Pepcid 20 mg b.i.d. 6. Losartan 100 mg daily. 7. Metoprolol tartrate 25 mg b.i.d. 8. Sennoside 1 tablet daily. 9. Clonidine 0.1 mg every 8 hours as needed. 10. Keppra 500 mg p.o. b.i.d. FOLLOWUP: 1. With hemodialysis starting on 11/03/2017. 2. Follow up with Dr. Hicks in 2 weeks - with follow up blood cultures to be obtained at dialysis on Nov 17. 3. Follow up with Dr. Lovell as instructed. LAB FOLLOWUP: Blood cultures to be obtained on 11/17 at hemodialysis for monitoring the effectiveness of therapy. HISTORY OF PRESENT ILLNESS: Mr. Higuera presented to the emergency room for shaking chills and fevers that developed during dialysis on 10/30. He had no other specific complaints at that time. HOSPITAL COURSE: The patient was admitted to the hospital and started on broad spectrum antibiotics with Zosyn and vancomycin. His cultures grew out Streptococcus agalactiae group B with all 4 blood cultures positive. Because of this, he was changed over to Rocephin and Zosyn. Dr. Hicks of Infectious Disease evaluated the patient today and recommended vancomycin sliding scale with dialysis for 2 weeks total. The source of infection is likely from skin related to dialysis. Blood cultures will be needed after discontinuing the vancomycin and follow up will be needed with Dr. Hicks in the office. The patient is overall feeling well. He denies any chest pain or difficulty breathing, denies nausea, vomiting, abdominal pain or diarrhea. He also reports that the fevers have resolved. Because he is overall doing well, and has been afebrile and responding to therapy, he does meet criteria for discharge to home. PHYSICAL EXAMINATION: Please see the daily note from today. LABORATORY DATA: 1. CBC on admission 14, 11.1, 32.1, 195, with 90% neutrophils, white blood cell count on 10/31 was 9.8. 2. Renal panel on 10/31, 139, 4.4, 95, 32, 23, 4.39, glucose of 88. 3. LFTs were normal. 4. Blood cultures x4 sets showed Strep agalactiae group A. IMAGING: Echocardiogram on 10/31 shows EF estimated at 45%-50%, left atrium mildly dilated, mild tricuspid regurgitation. Chest x-ray performed on 10/30, cardiomegaly and mild volume overload, pulmonary arterial hypertension, linear opacities of both lung bases with poor inspiratory effort, likely atelectasis, infection felt less likely. Reviewed with the patient this hospitalization, the antibiotics that will be delivered at dialysis, the care precautions and the followup instructions with him through the use of the video seismic interpreter for [place]. There were no questions or further needs at end of evaluation. Total time coordinating discharge is 35 minutes. MTDD
[2017-11-01 15:23] LABS: Vancomycin, Random 14.2 ug/mL (See Comment)
[2017-11-01 18:12] VITALS: BP 155/65; TEMP 98
--- NOTE | 2017-11-01 18:29 | PDOC.EVN ---
Event Note - Event Note Event Note: Pt returned from dialysis and stated to RN that he is ready to go home. Discharge order placed, summary dictated earlier.
== END 2017-11-01 18:48 | disposition home or self-care (01) | DRG 871 ==
LOC: ERS 14:51 → ERHOLD 17:45 → 2SE 20:01
PROVIDERS: ADMIT Internal Medicine; ATTEND Internal Medicine
PROC: 5A1D70Z Performance of Urinary Filtration, Intermittent, Less than 6 Hours Per Day (ICD-10-PCS; principal; 2017-11-01)
DX: A40.1 Sepsis due to streptococcus, group B (principal); N18.6 End stage renal disease; I12.0 Hypertensive chronic kidney disease with stage 5 chronic kidney disease or end stage renal disease; G40.909 Epilepsy, unspecified, not intractable, without status epilepticus; E11.22 Type 2 diabetes mellitus with diabetic chronic kidney disease; Z99.2 Dependence on renal dialysis; I25.10 Atherosclerotic heart disease of native coronary artery without angina pectoris; D63.1 Anemia in chronic kidney disease; Z86.718 Personal history of other venous thrombosis and embolism
CPT/HCPCS: 36415; 36416; 71045; 80048; 80053; 80202; 82550; 82553; 83605; 83880; 84484; 85025; 87040; 87077; 87149; 87186; 90471; 90670; 93005; 93306; 96361; 96365; 96367; G0009; J0696; J1644; J2405; J2543; J3370; J7050; Q0162

== ENCOUNTER 2019-03-19 04:03 | Emergency (ER) | payer MEDICARE, MEDICAID ==
[2019-03-19 04:35] LABS: #Eosinphils 0.2 thou/uL (0.0-0.7); #Lymphocytes 1.2 thou/uL (1.20-3.40); #Monocytes 0.9 thou/uL (0.11-0.59); %Basophils 0.5 % (0.0-1.0); %Eosinophils 1.6 % (0.0-10.0); %Lymphocytes 11.8 % (21.0-51.0); %Monocytes 9.1 % (0.0-10.0); %Neutrophils 77.1 % (42.0-75.0); Hemoglobin 10.4 g/dL (14.0-18.0); Mean Corpuscular HGB CONC 34.7 g/dL (32.0-36.0); Mean Platelet Volume 7.2 fL (7.4-10.4); Platelet Count 207 thou/uL (130-400); RBC Distribution Width 12.9 % (11.5-14.5); Red Blood Cell (RBC) Count 2.97 mill/uL (4.70-6.10); White Blood Cell (WBC) Count 10.4 thou/uL (4.8-10.8)
[2019-03-19] MEDS ORDERED: Dextrose 50% Abboject 50 ML SYRINGE ONE (04:52)
[2019-03-19 04:57] LABS: ALT (SGPT) 9 U/L (8-55); AST (SGOT) 13 U/L (5-34); Albumin 4.2 g/dL (3.4-4.8); Alkaline Phosphatase 60 U/L (40-110); Anion Gap 15 mmol/L (10-20); BUN (Urea Nitrogen) 20 mg/dL (8.4-25.7); Bilirubin, Total 0.4 mg/dL (0.2-1.2); Calc. Creatinine Clearance 0 mL/min (70-130); Calcium 9.1 mg/dL (7.8-10.44); Carbon Dioxide 33 mmol/L (23-31); Chloride 95 mmol/L (98-107); Estimated GFR-MDRD 19; Globulin 3.2 g/dL (2.4-3.5); Potassium 3.7 mmol/L (3.5-5.1); Protein, Total 7.4 g/dL (5.8-8.1); Sodium 139 mmol/L (136-145)
[2019-03-19 05:01] LABS: Glucose 54 mg/dL (83-110)
--- NOTE | 2019-03-19 08:01 | RAD ---
Portable frontal chest radiograph: 03/19/2019 COMPARISON: 10/30/2017 HISTORY: Hypoglycemia FINDINGS: Shallow inspiration limits detailed assessment of the lung bases. In addition, right base l imited secondary to elevation of right hemidiaphragm, stable. Stable mild increased linear density noted within the infrahilar region on the left and within the right lung base. No pneumothorax. Heart and mediastinal contours are stable. IMPRESSION: Stable appearance of the chest as detailed above. Assessment of the lung bases is limited secondary to shallow inspiration and elevation of right hemidiaphragm.
== END 2019-03-19 07:34 | disposition home or self-care (01) ==
LOC: ERS 04:03
DX: E11.649 Type 2 diabetes mellitus with hypoglycemia without coma (principal); E78.5 Hyperlipidemia, unspecified; I12.0 Hypertensive chronic kidney disease with stage 5 chronic kidney disease or end stage renal disease; E11.22 Type 2 diabetes mellitus with diabetic chronic kidney disease; N18.6 End stage renal disease; Z79.899 Other long term (current) drug therapy; Z99.2 Dependence on renal dialysis
CPT/HCPCS: 36416; 71045; 80053; 85025

== ENCOUNTER 2019-03-19 14:41 | Inpatient (IN) | payer MEDICARE, MEDICAID ==
[2019-03-19 15:47] LABS: #Basophils 0.1 thou/uL (0.0-0.2); #Eosinphils 0.2 thou/uL (0.0-0.7); #Lymphocytes 1.9 thou/uL (1.20-3.40); #Neutrophils 8.6 thou/uL (1.40-6.50); %Basophils 0.6 % (0.0-1.0); %Eosinophils 1.7 % (0.0-10.0); %Monocytes 8.4 % (0.0-10.0); %Neutrophils 73.3 % (42.0-75.0); Hemoglobin 10.3 g/dL (14.0-18.0); Mean Corpuscular HGB CONC 34.9 g/dL (32.0-36.0); Mean Corpuscular Hemoglobin 35.2 pg (27.0-31.0); Mean Platelet Volume 7.3 fL (7.4-10.4); Platelet Count 222 thou/uL (130-400); Red Blood Cell (RBC) Count 2.92 mill/uL (4.70-6.10); White Blood Cell (WBC) Count 11.8 thou/uL (4.8-10.8)
[2019-03-19 16:09] LABS: ALT (SGPT) 11 U/L (8-55); AST (SGOT) 17 U/L (5-34); Albumin 4.1 g/dL (3.4-4.8); Alkaline Phosphatase 55 U/L (40-110); Anion Gap 18 mmol/L (10-20); BUN (Urea Nitrogen) 29 mg/dL (8.4-25.7); Bilirubin, Total 0.4 mg/dL (0.2-1.2); Calc. Creatinine Clearance 0 mL/min (70-130); Carbon Dioxide 29 mmol/L (23-31); Chloride 98 mmol/L (98-107); Estimated GFR-MDRD 15; Potassium 3.8 mmol/L (3.5-5.1); Protein, Total 7.1 g/dL (5.8-8.1); Sodium 141 mmol/L (136-145)
[2019-03-19 16:16] LABS: Glucose 34 mg/dL (83-110)
[2019-03-19] MEDS ORDERED: Dextrose 50% Abboject 50 ML SYRINGE ONE (16:29)
[2019-03-19] MEDS ORDERED: Acetaminophen 325 MG TAB PO PRN (20:56)
[2019-03-19] MEDS ORDERED: Dextrose 5% in Water 1,000 ML IV PRN (21:01)
[2019-03-19] MEDS ORDERED: Dextrose 50% Abboject 50 ML SYRINGE SLOW IVP PRN (21:01)
[2019-03-19] MEDS ORDERED: Vancomycin HCl 1 GM in Premix Bag 1 BAG IVPB SCH (21:45)
[2019-03-19] MEDS: Dextrose 5 %-0.45 % NaCl 1,000 ML IV SCH (21:59)
[2019-03-19] MEDS: Heparin 5,000 UNITS/ML VIAL SC SCH (22:06)
[2019-03-19 22:13] LABS: Lactic Acid 1.2 mmol/L (0.5-2.2)
[2019-03-20 05:05] LABS: #Basophils 0.1 thou/uL (0.0-0.2); #Eosinphils 0.3 thou/uL (0.0-0.7); #Lymphocytes 1.9 thou/uL (1.20-3.40); #Monocytes 0.9 thou/uL (0.11-0.59); #Neutrophils 5.3 thou/uL (1.40-6.50); %Basophils 1.1 % (0.0-1.0); %Lymphocytes 22.5 % (21.0-51.0); %Neutrophils 62.3 % (42.0-75.0); Hemoglobin 9.1 g/dL (14.0-18.0); Mean Corpuscular HGB CONC 34.9 g/dL (32.0-36.0); Mean Corpuscular Hemoglobin 35.3 pg (27.0-31.0); Mean Platelet Volume 7.1 fL (7.4-10.4); Platelet Count 191 thou/uL (130-400); Red Blood Cell (RBC) Count 2.57 mill/uL (4.70-6.10); White Blood Cell (WBC) Count 8.5 thou/uL (4.8-10.8)
[2019-03-20 05:32] LABS: Anion Gap 14 mmol/L (10-20); BUN (Urea Nitrogen) 33 mg/dL (8.4-25.7); Calc. Creatinine Clearance 13 mL/min (70-130); Calcium 8.5 mg/dL (7.8-10.44); Carbon Dioxide 29 mmol/L (23-31); Chloride 96 mmol/L (98-107); Estimated GFR-MDRD 12; Glucose 102 mg/dL (83-110); Potassium 4.3 mmol/L (3.5-5.1); Sodium 135 mmol/L (136-145)
--- NOTE | 2019-03-20 07:13 | HP ---
PRIMARY CARE PHYSICIAN: Unknown. INTERPRETIVE PROGRAM COORDINATOR: Jeff Lovell MD CHIEF COMPLAINT: Altered mental status, low blood sugars. HISTORY OF PRESENT ILLNESS: This is a 73-year-old Romanian speaking male, past medical history of ESRD on hemodialysis via left forearm access site Mondays, Wednesdays, Fridays; hypertension, peripheral vascular disease with prior right above-knee amputation, and type 2 diabetes mellitus, off all oral hypoglycemics and insulin agents, who presented to [facility] ER for a second evaluation today for altered mental status and low blood sugars. The majority of history was obtained from the patient's daughter at bedside via bedside video cargo supervisor. Daughter reports the patient is not on any glucose lowering medications and this morning was noted to act bizarre, prompting family members to check blood sugar, which was approximately 46, and called EMS. The patient received D50 en route to the ER and was noted to have improvement in blood sugars and was discharged home. The daughter notes the patient did not eat much for lunch and again earlier this afternoon began to have recurrent symptoms prompting a similar Accu-Chek reading at home and EMS evaluation. In the ER, the patient was again given D50 with improvement in blood glucoses with repeat serial Accu-Cheks thereafter revealing downtrending glucose. CBC revealed mild leukocytosis of 11.8, and most recent blood pressure was hypotensive at 86/66. A limited history was obtained from the ER physician. At bedside, the patient is oriented to person and place. He is an otherwise poor historian. He denies any complaints of pain or infections throughout his body. He reports his last dialysis was yesterday with complete session. He denies any recent antibiotics or infections. He denied to me any bloodstream infections, but review of electronic records notes history of group B strep bacteremia in 2018. No recent complaints of abdominal pain, nausea, vomiting, or angina, but the patient does note recent complaints of diarrhea of unspecified duration. PAST MEDICAL HISTORY: ESRD, on hemodialysis Mondays, Wednesdays, Fridays via left forearm access site; hypertension, type 2 diabetes mellitus, off all oral hypoglycemics and insulin agents, peripheral vascular disease, right above-knee amputation. PAST SURGICAL HISTORY: Right above-knee amputation, left forearm dialysis access site, left toe amputations. SOCIAL HISTORY: The patient lives at home with his son. He uses a wheelchair at baseline to mobilize; remote tobacco and alcohol use reported, but none currently. ALLERGIES: LISTED TO HYDROCODONE OF UNCLEAR SEVERITY. REVIEW OF SYSTEMS: Limited due to patient's limited communication. Pertinent positives noted as per HPI. Remainder of review of systems is negative. HOME MEDICATIONS: Reviewed as per admission medication reconciliation. FAMILY HISTORY: Notable for diabetes mellitus in multiple kids of the patient. No further detailed history could be obtained. PHYSICAL EMANATION: VITAL SIGNS: Blood pressures ranged from 86/66 to 148/90, pulse 67 to 76, initial temperature 94.0 rectal with most recent documented as 98.6 oral, oxygen saturation 99% room air. GENERAL APPEARANCE: This is an elderly, somnolent male, minimally conversant, who follows basic commands. HEENT: Normocephalic, atraumatic. No obvious facial asymmetry. Pupils are equally round. NECK: Supple. CARDIOVASCULAR: S1, S2. Regular rate and rhythm. No harsh murmurs. No reproducible chest wall tenderness. LUNGS: Bilateral equal air entry. Clear to auscultation. Nonlabored respirations. No wheezing or rales. ABDOMEN: Soft, mildly distended. Hyperactive bowel sounds noted. Nontender to touch. EXTREMITIES: There is a left upper extremity dialysis access site with palpable thrill. No obvious purulent drainage noted. There is a right above-knee amputation that appears clean. There is evidence of prior amputation in the left toes with no obvious wounds or dehiscence. BACK: On evaluation, there are no skin breaks or decubitus ulcers appreciated. No spinal tenderness to palpation. SKIN: Warm to touch without rash or pallor or obvious abrasion. LABORATORY VALUES: Sodium 141, potassium 3.8, chloride 98, bicarb 29, glucose 34. BUN and creatinine 29/4.04. LFTs unremarkable. Lactic acid 1.4. WBC 11.8, H and H 10.3/29.4, platelets 222. IMAGING: One-view chest x-ray done earlier today during previous ER visit reveals stable chest appearance with limited evaluation due to shallow inspiration. Elevation of right hemidiaphragm. ASSESSMENT: 1. Acute metabolic encephalopathy secondary to symptomatic hypoglycemia. The patient will be admitted as inpatient status and placed on telemetry monitoring. The patient has reported history of type 2 diabetes mellitus, but is not on any oral hypoglycemics or insulin agents. He has had recurrent ER evaluation today for symptomatic hypoglycemia with persistent hypoglycemic episodes despite administration of multiple ampules of D50. Certainly, infectious etiologies must be included in this patient with dialysis, who presented initially with hypothermia, recurrent hypoglycemia, known history of strep bacteremia and he is currently hypotensive. Certainly, sepsis is of utmost concern. 2. Possible sepsis of unspecified etiology. We will obtain stat blood cultures, repeat lactic acid level, start empiric IV antibiotics with vancomycin and dose adjust for dialysis, and continue to monitor Accu-Cheks for euglycemia. The patient was noted to be hypothermic, hypotensive, and with leukocytosis on admission with changes in mentation. 3. Symptomatic hypoglycemia of unspecified etiology. Must include infectious etiology in this patient with concerns for bacteremia. Noted history of group B strep bacteremia. 4. History of group B strep bacteremia. 5. End-stage renal failure, on hemodialysis Mondays, Wednesdays, and Fridays. The patient was dialyzed Monday. We will consult Nephrology for routine hemodialysis. 6. History of hypertension. The patient is currently hypertensive to normotensive. We will continue IV fluids with dextrose. 7. History of right above-knee amputation. 8. Peripheral vascular disease. Continue home cilostazol. 9. Deep venous thrombosis prophylaxis with subcutaneous heparin. 10. Code status: Full code. 11. Check a.m. labs. DISPOSITION: The patient will be admitted as inpatient status and placed on telemetry monitoring and may need to upgrade to IMCU if Accu-Cheks remain persistently hypoglycemic. Job ID: [id number]
[2019-03-20] MEDS: Dextrose 5 %-0.45 % NaCl 1,000 ML IV SCH (08:25)
[2019-03-20] MEDS: Heparin 5,000 UNITS/ML VIAL SC SCH ×2 (08:26→20:42)
[2019-03-20 10:31] LABS: HBSAg Index 0.19 S/CO (0-0.99); Hep B Surf Ag Non-Reactive S/CO (NonReactive)
--- NOTE | 2019-03-20 12:34 | PDOC.HOSPP ---
- Subjective Encounter Date: 03/20/19 Encounter Time: 12:30 Subjective: f/u for recurrent hypoglycemia off all oral hypoglycemics/insulin therapy. Initial concern for infectious process but blood cx negative after receiving Vancomycin. Nursing reports glucose improved. Pt c/o several episodes of diarrhea. - Objective Vital Signs & Weight: Vital Signs (12 hours) Temp Pulse Resp BP Pulse Ox 03/20/19 12:00 98.3 F 84 20 146/64 H 96 03/20/19 07:30 98.3 F 79 20 147/69 H 95 03/20/19 04:03 98.3 F 76 18 131/55 L 95 Weight Weight 149 lb I&O: 03/19/19 03/20/19 03/21/19 06:59 06:59 06:59 Intake Total 1999 Balance 1999 Result Diagrams: 03/20/19 04:50 03/20/19 04:50 Additional Labs: Accuchecks 03/20/19 03/20/19 03/20/19 10:34 08:58 08:26 POC Glucose 115 H 100 95 03/20/19 03/20/19 03/20/19 06:01 04:02 02:05 POC Glucose 120 H 77 128 H 03/20/19 03/19/19 03/19/19 00:10 21:53 19:58 POC Glucose 101 50 L* 61 L 03/19/19 03/19/19 03/19/19 18:47 17:06 16:24 POC Glucose 88 155 H Less than 35 L* 03/19/19 14:50 POC Glucose 81 Radiology Reviewed by me: Yes (PCXR - atelectasis in bases) Hospitalist ROS - Medication Medications: Active Medications Generic Name Dose Route Start Last Admin Trade Name Freq PRN Reason Stop Dose Admin Heparin Sodium (Porcine) 5,000 units 03/19/19 21:00 03/20/19 08:26 Heparin SC 5,000 units BID BEE Administration Dextrose/Sodium Chloride 1,000 mls @ 100 mls/hr 03/19/19 21:00 03/20/19 08:25 D5 1/2 Ns IV 1,000 mls .Q10H BEE Administration - Exam General Appearance: NAD, awake alert Eye: PERRL, anicteric sclera ENT: normocephalic atraumatic, no oropharyngeal lesions Neck: supple, symmetric, no JVD, no thyromegaly Heart: RRR, no murmur, no gallops, no rubs Respiratory: CTAB, no wheezes, no rales, no ronchi Gastrointestinal: soft, non-tender, non-distended, normal bowel sounds Extremities: no cyanosis, no clubbing, no edema Extremities - other findings: R AKA(chronic) Skin: normal turgor, no lesions Neurological: cranial nerve grossly intact, no new deficit Musculoskeletal: normal tone, generalized weakness Psychiatric: oriented to person Hosp A/P (1) Hypoglycemia Code(s): E16.2 - HYPOGLYCEMIA, UNSPECIFIED Status: Acute Plan: Recurrent hypoglycemia of unclear source, no hypoglycemic agents taken, continue D5NS @ 50ml/h, avoid insulin (2) Encephalopathy acute Code(s): G93.40 - ENCEPHALOPATHY, UNSPECIFIED Status: Acute Plan: Secondary to #1, improved (3) CAD (coronary artery disease) Code(s): I25.10 - ATHSCL HEART DISEASE OF [place] CORONARY ARTERY W/O ANG PCTRS Status: Chronic (4) ESRD (end stage renal disease) on dialysis Code(s): N18.6 - END STAGE RENAL DISEASE; Z99.2 - DEPENDENCE ON RENAL DIALYSIS Status: Chronic Plan: Plan for HD today, no acute volume overload (5) HTN (hypertension) Code(s): I10 - ESSENTIAL (PRIMARY) HYPERTENSION Status: Chronic Qualifiers: Hypertension type: essential hypertension Qualified Code(s): I10 - Essential (primary) hypertension Plan: Continue home BP regimen, serial monitoring - Plan continue antibiotics, transition social worker, DVT proph w/SCDs Stable currently Continue D5NS another 24h Serial accuchecks HD planned today Resume Renal Diet AM lab: BMP Likely home in 24h
[2019-03-20] MEDS ORDERED: Loperamide HCl 2 MG CAP PO PRN (12:37)
[2019-03-20] MEDS ORDERED: Dextrose 5 %-0.45 % NaCl 1,000 ML IV SCH (12:38)
[2019-03-20 16:18] VITALS: BMI 24.7
--- NOTE | 2019-03-20 18:05 | CON ---
DATE OF CONSULTATION: REASON FOR CONSULTATION: End-stage kidney disease on maintenance hemodialysis. HISTORY OF PRESENT ILLNESS: This is a 73-year-old gentleman, who was admitted for altered mental status and low blood sugar. The patient at this time denies nausea, vomiting, or chest pain. The patient dialysis Monday, Monday, and Monday without any complication. PAST MEDICAL HISTORY: Hypertension, ESRD, peripheral vascular disease, right above-knee amputation, diabetes mellitus, peripheral vascular disease, history of AV fistula tunneled dialysis catheter. SOCIAL: No alcohol use. ALLERGIES: REVIEWED. HOME MEDICATIONS: List reviewed. HOSPITAL MEDICATIONS: List reviewed. FAMILY HISTORY: Negative for ESRD. REVIEW OF SYSTEMS: A 15-point review of system was performed negative except for positives noted above. GENERAL: HEAD: NECK: No swelling or lumps. NOSE: No epistaxis or discharge. EYES: No diplopia or pain. RESPIRATORY: CARDIOVASCULAR: GASTROINTESTINAL: /DIE OUT WORKER: MUSCULOSKELETAL: No joint pain. NEUROPSYCHIATIC SYSTEMS: No suicidal ideation. No ideation. SKIN: Denies any rash or ulcer. CONSTITUTIONAL: No fever or chills. PHYSICAL EXAMINATION: CONSTITUTIONAL: The patient is awake and alert. VITAL SIGNS: Afebrile, pulse 84, breathing 16, and blood pressure 146/64. GENERAL APPEARANCE AND MENTAL STATUS: Fair. HEAD/NECK: Normocephalic. Atraumatic. EYES: EOMI. No deformity. EARS: Clear. No ulcers. NOSE: Intact. No lesions. MOUTH: Clear. No discharge. THROAT: Clear. No exudate. LUNGS: Clear. No crackles. CARDIAC: S1, S2. No rub. ABDOMEN: Benign. Bowel sounds positive. GENITALIA/RECTUM: Weiner absent. BACK/EXTREMITIES: Edema 0+. NEUROLOGICAL: Alert and motor intact. SKIN: LYMPHATICS: LABORATORY DATA: Labs reviewed. ASSESSMENT AND PLAN: Stage 6, chronic kidney disease, continue hemodialysis. Hypertension, stable. Anemia, stable. Medication based on GFR appropriate. Job ID: [id number]
[2019-03-20] MEDS: Cilostazol 100 MG TAB PO SCH (20:42)
[2019-03-20] MEDS: Famotidine 20 MG TAB PO SCH (20:42)
[2019-03-20] MEDS: levETIRAcetam 500 MG TAB PO SCH (20:42)
[2019-03-20] MEDS: Metoprolol Tartrate 25 MG TAB PO SCH (20:42)
[2019-03-21 07:33] VITALS: TEMP 98.3
[2019-03-21] MEDS: Cilostazol 100 MG TAB PO SCH (08:39)
[2019-03-21] MEDS: levETIRAcetam 500 MG TAB PO SCH (08:39)
[2019-03-21] MEDS: Metoprolol Tartrate 25 MG TAB PO SCH (08:39)
[2019-03-21] MEDS: Famotidine 20 MG TAB PO SCH (08:41)
[2019-03-21] MEDS: Heparin 5,000 UNITS/ML VIAL SC SCH (08:41)
[2019-03-21] MEDS ORDERED: Losartan 25 MG TAB PO SCH (09:00)
[2019-03-21] MEDS ORDERED: Amlodipine 10 MG TAB PO SCH (09:00)
[2019-03-21] MEDS ORDERED: Aspirin 81 mg Enteric Coated Tablet PO SCH (09:00)
--- NOTE | 2019-03-21 12:08 | PRG ---
DATE OF SERVICE: 03/21/2019 SUBJECTIVE: A 73-year-old gentleman, being seen for end-stage renal disease. The patient denies any nausea, vomiting, or chest pain. OBJECTIVE: GENERAL: The patient is awake and alert. VITAL SIGNS: Afebrile, pulse 72, breathing 16, blood pressure 120/69. GENERAL APPEARANCE AND MENTAL STATUS: Fair. HEAD/NECK: Normocephalic. Atraumatic. EYES: EOMI. No deformity. EARS: Clear. No ulcers. NOSE: Intact. No lesions. MOUTH: Clear. No discharge. THROAT: Clear. No exudate. LUNGS: Clear. No crackles. CARDIAC: S1, S2. No rub. ABDOMEN: Benign. Bowel sounds positive. GENITALIA/RECTUM: Weiner absent. BACK/EXTREMITIES: Edema 0+. NEUROLOGICAL: Alert and motor intact. SKIN: LYMPHATICS: LABORATORY DATA: Reviewed. ASSESSMENT AND PLAN: 1. Stage 6 chronic kidney disease, stable. 2. Hypertension, stable. 3. Anemia, stable. 4. Medication based on GFR, appropriate. The patient will have dialysis tomorrow. Job ID: [id number]
[2019-03-21 13:24] VITALS: BP 172/66
--- NOTE | 2019-03-21 14:54 | PQF ---
Donnie PORTERACIO SUSANCANDACE DO [id number] CLINICAL DOCUMENTATION IMPROVEMENT CLARIFICATION FORM: ICD-10 Updated PLEASE DO AN ADDENDUM TO THE PROGRESS NOTE WITH ANY DOCUMENTATION UPDATES OR ADDITIONS AND CARRY THROUGH TO DC SUMMARY. THANK YOU. DATE: 03/21/2019 ATTN:DR. Farida DAVIS Please exercise your independent, professional judgment in responding to the clarification form. Clinical indicators are provided on the bottom of this form for your review. Please check appropriate box(s) to clarify if the following diagnosis has been ruled in or ruled out: SEPSIS [ ] Ruled in diagnosis [ ] Continue to treat [ ] Resolved [ x ] Ruled out diagnosis [ ] Other diagnosis [ ] Unable to determine In addition, please specify: Present on Admission (POA): [ ] Yes [ x ] No [ ] Unable to determine For continuity of documentation, please document condition throughout progress notes and discharge summary. Thank You. CLINICAL INDICATORS - SIGNS / SYMPTOMS / LABS / RESULTS AND LOCATION IN MR 03/19 H&P (MAY) ASSESSMENT: 1.) " CERTAINLY , SEPSIS IS OF UTMOST CONCERN" 2). POSSIBLE SEPSIS OF UNSPECIFIED ETIOLOGY. 03/19 WBC 11.8 NO FURTHER MENTION TO DATE OF SEPSIS RISK: HX OF GROUP B STREP BACTEREMIA , CHANGE IN MENTAL STATUS, ACUTE METABOLIC ENCEPHALOPATHY HYPOTHERMIC WITH LEUKOCYTOSIS ON ADMISSION (H&P/ MAY) 03/19 TREATMENTS: BLOOD CULTURES (03/09) VANCOMYCIN IV (03/19) (This form is maintained as a part of the permanent medical record) 2014 [employer], [employer]. All Rights Reserved [email or web address] [phone] MTDD
--- NOTE | 2019-03-22 04:50 | DIS ---
DATE OF ADMISSION: 03/19/2019 DATE OF DISCHARGE: 03/21/2019 DISCHARGE DIAGNOSES: 1. Recurrent hypoglycemia, unclear etiology, resolved. 2. Acute encephalopathy secondary to hypoglycemia, resolved. 3. End-stage renal disease with hemodialysis, stable. 4. Hypertension, stable. 5. Coronary artery disease, chronic and stable. CONSULTATIONS: Dr. Lovell with Nephrology Service. PERTINENT LABORATORY AND X-RAY FINDINGS: Glucose ranged between 35 to 151. Creatinine ranged between 4.04 to 4.80. CBC showed a hemoglobin ranged between 9.1 to 10.3. Blood cultures x2 dated 03/19/2019, showed no growth to date. Portable chest x-ray dated 03/19/2019, showed no acute infiltrate. HOSPITAL COURSE: The patient was initially admitted after presenting with recurrent hypoglycemia with associated encephalopathy. The patient received D50 in addition to D5 NS with overall stabilization of glucose values. The patient was not on any oral hypoglycemics or insulin therapy after investigation. The patient was ruled out for underlying infectious process. The patient was able to tolerate regular oral intake with overall stabilization of glucose trend. The patient continued on a regular maintenance hemodialysis during the hospital course without evidence of acute volume overload. The patient overall remained clinically stable with stable vital signs at the time of discharge. I have examined the patient at the time of discharge and discussed followup instructions. The patient verbalized understanding and agreement, ready for discharge on 03/21/2019. DISCHARGE MEDICATIONS: 1. Enteric-coated aspirin 81 mg p.o. daily. 2. Clonidine 0.1 mg p.o. q.8 hours p.r.n. systolic blood pressure greater than or equal to 180. 3. Pepcid 20 mg p.o. b.i.d. 4. Hydralazine 25 mg p.o. Monday, Monday, and Monday. 5. Losartan 100 mg p.o. daily. 6. Metoprolol tartrate 25 mg p.o. b.i.d. 7. Amlodipine 10 mg p.o. daily. 8. Pletal 100 mg p.o. b.i.d. 9. Keppra 500 mg p.o. b.i.d. FOLLOWUP: The patient will follow up with his primary care provider, Dr. Logan Higuera at [facility]. CONDITION ON DISCHARGE: Stable. ACTIVITY: Ad-adal. DIET: Renal. CODE STATUS: Full. DISPOSITION: To home with standard home health services, on 03/21/2019. TIME SPENT: Total time preparing and coordinating discharge, 33 minutes. Job ID: [id number]
[2019-03-22] MEDS ORDERED: hydrALAZINE 25 MG TAB PO SCH (09:00)
== END 2019-03-21 13:26 | disposition home health service (06) | DRG 637 ==
LOC: ERS 14:41 → T4-B 21:12 → OBSVTOIN 21:12
PROVIDERS: ADMIT Hospitalist; ATTEND Hospitalist
DX: E11.649 Type 2 diabetes mellitus with hypoglycemia without coma (principal); G93.41 Metabolic encephalopathy; I12.0 Hypertensive chronic kidney disease with stage 5 chronic kidney disease or end stage renal disease; Z99.2 Dependence on renal dialysis; N18.6 End stage renal disease; Z89.611 Acquired absence of right leg above knee; Z79.4 Long term (current) use of insulin; Z88.8 Allergy status to other drugs, medicaments and biological substances; E11.22 Type 2 diabetes mellitus with diabetic chronic kidney disease; D64.9 Anemia, unspecified; E78.5 Hyperlipidemia, unspecified; E11.51 Type 2 diabetes mellitus with diabetic peripheral angiopathy without gangrene
CPT/HCPCS: 36415; 36416; 71045; 80048; 80053; 83605; 85025; 87040; 87340; 96374; J1644; J3370

== ENCOUNTER 2020-07-30 16:44 | Emergency (ER) | payer MEDICARE, OTHER ==
[2020-07-30] MEDS ORDERED: hydrALAZINE 20 MG/ML VIAL ONE (17:14)
[2020-07-30 17:29] LABS: #Basophils 0.1 thou/uL (0.0-0.2); #Eosinphils 0.4 thou/uL (0.0-0.7); #Lymphocytes 1.3 thou/uL (1.20-3.40); #Monocytes 0.6 thou/uL (0.11-0.59); #Neutrophils 3.3 thou/uL (1.40-6.50); %Eosinophils 6.8 % (0.0-10.0); %Lymphocytes 23.7 % (21.0-51.0); %Monocytes 9.9 % (0.0-10.0); %Neutrophils 58.6 % (42.0-75.0); Hemoglobin 11.9 g/dL (14.0-18.0); Mean Corpuscular HGB CONC 33.1 g/dL (32.0-36.0); Mean Corpuscular Hemoglobin 35.1 pg (27.0-31.0); Mean Platelet Volume 7.3 fL (7.4-10.4); Platelet Count 147 thou/uL (130-400); RBC Distribution Width 14.1 % (11.5-14.5); Red Blood Cell (RBC) Count 3.38 mill/uL (4.70-6.10); White Blood Cell (WBC) Count 5.6 thou/uL (4.8-10.8)
[2020-07-30 18:01] LABS: MDiff Complete? YES; Macrocytosis SLIGHT = 6-15 cells (100X) (0-5/hpf); Platelet Morphology Comment Appears Adequate
[2020-07-30 18:05] LABS: ALT (SGPT) 10 U/L (8-55); AST (SGOT) 14 U/L (5-34); Albumin 3.9 g/dL (3.4-4.8); Alkaline Phosphatase 58 U/L (40-110); Anion Gap 18 mmol/L (10-20); BUN (Urea Nitrogen) 28 mg/dL (8.4-25.7); Bilirubin, Total 0.3 mg/dL (0.2-1.2); Calc. Creatinine Clearance 0 mL/min (70-130); Calcium 8.5 mg/dL (7.8-10.44); Carbon Dioxide 31 mmol/L (23-31); Chloride 94 mmol/L (98-107); Globulin 3.2 g/dL (2.4-3.5); Glucose 84 mg/dL (83-110); Potassium 4.9 mmol/L (3.5-5.1); Protein, Total 7.1 g/dL (5.8-8.1); Sodium 138 mmol/L (136-145)
== END 2020-07-30 19:25 | disposition home or self-care (01) ==
LOC: ERS 16:44
DX: I12.0 Hypertensive chronic kidney disease with stage 5 chronic kidney disease or end stage renal disease (principal); E11.22 Type 2 diabetes mellitus with diabetic chronic kidney disease; N18.6 End stage renal disease; E78.5 Hyperlipidemia, unspecified; Z79.899 Other long term (current) drug therapy; Z99.2 Dependence on renal dialysis
CPT/HCPCS: 70450; 80053; 84484; 85025; 93005; 96374; J0360

== ENCOUNTER 2022-04-25 08:23 | Emergency (ER) | payer MEDICARE, OTHER, MEDICAID ==
[2022-04-25] MEDS ORDERED: hydrALAZINE 20 MG/ML VIAL ONE (09:26)
[2022-04-25 09:32] LABS: #Eosinphils 0.7 thou/uL (0.0-0.7); #Lymphocytes 1.4 thou/uL (1.20-3.40); #Monocytes 0.6 thou/uL (0.11-0.59); #Neutrophils 6.9 thou/uL (1.40-6.50); %Basophils 0.3 % (0.0-1.0); %Eosinophils 7.2 % (0.0-10.0); %Lymphocytes 14.5 % (21.0-51.0); %Monocytes 6.4 % (0.0-10.0); %Neutrophils 71.6 % (42.0-75.0); Hemoglobin 11.5 g/dL (14.0-18.0); Mean Corpuscular HGB CONC 35.7 g/dL (32.0-36.0); Mean Platelet Volume 7.5 fL (7.4-10.4); Platelet Count 136 10x3/uL (130-400); RBC Distribution Width 13.5 % (11.5-14.5); White Blood Cell (WBC) Count 9.7 10x3/uL (4.8-10.8)
[2022-04-25 09:56] LABS: ALT (SGPT) 12 U/L (8-55); AST (SGOT) 9 U/L (5-34); Albumin 3.2 g/dL (3.4-4.8); Alkaline Phosphatase 60 U/L (40-110); Anion Gap 18 mmol/L (10-20); BUN (Urea Nitrogen) 56 mg/dL (8.4-25.7); Bilirubin, Total 0.4 mg/dL (0.2-1.2); Calc. Creatinine Clearance 0 mL/min (70-130); Calcium 7.6 mg/dL (7.8-10.44); Carbon Dioxide 26 mmol/L (23-31); Chloride 96 mmol/L (98-107); Estimated GFR 8; Globulin 2.9 g/dL (2.4-3.5); Glucose 70 mg/dL (83-110); Lipase 26 U/L (8-78); Magnesium 2.2 mg/dL (1.6-2.6); Potassium 4.3 mmol/L (3.5-5.1); Protein, Total 6.1 g/dL (5.8-8.1); Sodium 136 mmol/L (136-145)
[2022-04-25 10:12] LABS: Free T4 (Free Thyroxine) 1.12 ng/dL (0.70-1.48); Thyroid Stimulating Hormone 2.1285 uIU/mL (0.35-4.94)
[2022-04-25 10:25] LABS: SARS-CoV-2 NAA Rapid Test Not Detected (NotDetected)
[2022-04-25] MEDS ORDERED: cefTRIAXone\\ROCEPHIN 1 GM VIAL ONE (11:28)
== END 2022-04-25 15:09 | disposition home or self-care (01) ==
LOC: ERS 08:23
DX: R53.1 Weakness (principal); R00.1 Bradycardia, unspecified; E11.22 Type 2 diabetes mellitus with diabetic chronic kidney disease; N18.6 End stage renal disease; I12.0 Hypertensive chronic kidney disease with stage 5 chronic kidney disease or end stage renal disease; Z20.822 Contact with and (suspected) exposure to COVID-19; Z99.2 Dependence on renal dialysis; Z79.899 Other long term (current) drug therapy; Z79.82 Long term (current) use of aspirin
CPT/HCPCS: 0240U; 70450; 71045; 82962; 83605; 83690; 83735; 83880; 84439; 84484; 87040; 93005; 36416; 80053; 84443; 85025; 96374; 96375; J0360; J0696

== ENCOUNTER 2022-04-26 18:19 | Observation (INO) | payer OTHER ==
[2022-04-26 19:13] LABS: #Eosinphils 0.4 thou/uL (0.0-0.7); #Monocytes 0.5 thou/uL (0.11-0.59); #Neutrophils 4.5 thou/uL (1.40-6.50); %Basophils 0.8 % (0.0-1.0); %Eosinophils 6.4 % (0.0-10.0); %Lymphocytes 15.9 % (21.0-51.0); %Monocytes 7.7 % (0.0-10.0); %Neutrophils 69.2 % (42.0-75.0); Hemoglobin 11.5 g/dL (14.0-18.0); Mean Corpuscular HGB CONC 35.8 g/dL (32.0-36.0); Mean Platelet Volume 7.8 fL (7.4-10.4); Platelet Count 142 10x3/uL (130-400); RBC Distribution Width 13.6 % (11.5-14.5); Red Blood Cell (RBC) Count 3.11 mill/uL (4.70-6.10); White Blood Cell (WBC) Count 6.5 10x3/uL (4.8-10.8)
[2022-04-26 19:34] LABS: Actual Bicarbonate (HCO3v) 25 mEq/L (22-28); Base Excess -0.2 mEq/L (-2.0 to +3.0); Calcium, Ionized (venous) 0.96 mmol/L (1.16-1.32); Chloride (VBG) 95 mmol/L (98-106); Hemoglobin (Hb) 12.2 g/dL (12.6-17.4); Potassium (VBG) 4.34 mmol/L (3.70-5.30); Sodium 134.6 mmol/L (133-146); pH (venous) 7.37 (7.32-7.43)
[2022-04-26 19:41] LABS: ALT (SGPT) 9 U/L (8-55); AST (SGOT) 8 U/L (5-34); Albumin 3.6 g/dL (3.4-4.8); Alkaline Phosphatase 60 U/L (40-110); Anion Gap 21 mmol/L (10-20); BUN (Urea Nitrogen) 72 mg/dL (8.4-25.7); Bilirubin, Total 0.4 mg/dL (0.2-1.2); Calc. Creatinine Clearance 0 mL/min (70-130); Calcium 7.9 mg/dL (7.8-10.44); Carbon Dioxide 25 mmol/L (23-31); Chloride 95 mmol/L (98-107); Estimated GFR 6; Lipase 19 U/L (8-78); Magnesium 2.5 mg/dL (1.6-2.6); Potassium 4.4 mmol/L (3.5-5.1); Protein, Total 6.6 g/dL (5.8-8.1); Sodium 137 mmol/L (136-145)
[2022-04-26 19:45] LABS: Glucose 47 mg/dL (83-110)
[2022-04-26] MEDS ORDERED: Dextrose 50% Abboject 50 ML SYRINGE ONE (19:46)
[2022-04-26 23:05] VITALS: BMI 24.3
[2022-04-27 01:46] LABS: #Eosinphils 0.3 thou/uL (0.0-0.7); #Monocytes 0.7 thou/uL (0.11-0.59); %Basophils 0.8 % (0.0-1.0); %Eosinophils 5.4 % (0.0-10.0); %Monocytes 11.3 % (0.0-10.0); %Neutrophils 65.6 % (42.0-75.0); Hemoglobin 10.4 g/dL (14.0-18.0); Mean Corpuscular HGB CONC 35.3 g/dL (32.0-36.0); Mean Corpuscular Hemoglobin 36.2 pg (27.0-31.0); Mean Platelet Volume 7.9 fL (7.4-10.4); Platelet Count 120 10x3/uL (130-400); RBC Distribution Width 13.4 % (11.5-14.5); Red Blood Cell (RBC) Count 2.86 mill/uL (4.70-6.10); White Blood Cell (WBC) Count 6.1 10x3/uL (4.8-10.8)
[2022-04-27 02:23] LABS: Phosphorus 6.3 mg/dL (2.3-4.7)
[2022-04-27 02:24] LABS: ALT (SGPT) 10 U/L (8-55); AST (SGOT) 6 U/L (5-34); Albumin 3.2 g/dL (3.4-4.8); Alkaline Phosphatase 61 U/L (40-110); Anion Gap 22 mmol/L (10-20); BUN (Urea Nitrogen) 77 mg/dL (8.4-25.7); Bilirubin, Total 0.3 mg/dL (0.2-1.2); Calc. Creatinine Clearance 7 mL/min (70-130); Calcium 7.6 mg/dL (7.8-10.44); Carbon Dioxide 23 mmol/L (23-31); Chloride 95 mmol/L (98-107); Estimated GFR 6; Globulin 2.8 g/dL (2.4-3.5); Glucose 126 mg/dL (83-110); Magnesium 2.4 mg/dL (1.6-2.6); Sodium 135 mmol/L (136-145)
[2022-04-27] MEDS: Cilostazol 100 MG TAB PO SCH ×3 (03:19→22:10)
[2022-04-27] MEDS: Famotidine 20 MG TAB PO SCH ×2 (03:19→22:10)
[2022-04-27] MEDS: Heparin 5,000 UNITS/ML VIAL SC SCH ×4 (03:19→22:11)
[2022-04-27] MEDS: Metoprolol Tartrate 25 MG TAB PO SCH ×3 (03:20→22:11)
[2022-04-27] MEDS: levETIRAcetam 500 mg/5 ml Oral Solution PO SCH ×3 (03:20→22:10)
[2022-04-27] MEDS: Dextrose 50% Abboject 50 ML SYRINGE SLOW IVP PRN ×2 (04:50→16:08)
[2022-04-27] MEDS ORDERED: Metoprolol Tartrate 25 MG TAB ONE (10:16)
[2022-04-27] MEDS: Amlodipine 10 MG TAB PO SCH (10:42)
[2022-04-27] MEDS: Senokot 8.6 MG TAB PO SCH (10:43)
[2022-04-27 14:20] LABS: HBSAB Concentration Less than 8.00 mIU/mL; HBSAg Index 0.29 S/CO (0-0.99); Hep B Core Total Ab Non-Reactive (NonReactive); Hep B Core Total Index 0.08 S/CO (0-0.79); Hep B Surf AB Non-Reactive (NonReactive); Hep B Surf Ag Non-Reactive S/CO (NonReactive); Hep C IgG Ab Non-Reactive (NonReactive); Hep C Index 0.05 S/CO (0-0.79)
[2022-04-27] MEDS ORDERED: Dextrose 50% Abboject 50 ML SYRINGE ONE (15:15)
[2022-04-27] MEDS ORDERED: Protamine Sulfate 50 MG/5 ML VIAL SLOW IVP SCH (21:30)
[2022-04-28 05:11] LABS: INR-International Normal Ratio 1.1; Prothrombin Time 14.3 sec (12.0-14.7)
[2022-04-28 05:18] LABS: #Basophils 0.1 thou/uL (0.0-0.2); #Eosinphils 0.4 thou/uL (0.0-0.7); #Lymphocytes 1.1 thou/uL (1.20-3.40); #Monocytes 0.9 thou/uL (0.11-0.59); #Neutrophils 4.4 thou/uL (1.40-6.50); %Basophils 0.8 % (0.0-1.0); %Eosinophils 5.5 % (0.0-10.0); %Lymphocytes 15.9 % (21.0-51.0); %Monocytes 13.5 % (0.0-10.0); %Neutrophils 64.3 % (42.0-75.0); Hemoglobin 9.8 g/dL (14.0-18.0); Mean Corpuscular HGB CONC 35.1 g/dL (32.0-36.0); Mean Corpuscular Hemoglobin 36.6 pg (27.0-31.0); Mean Platelet Volume 7.9 fL (7.4-10.4); Platelet Count 127 10x3/uL (130-400); RBC Distribution Width 13.6 % (11.5-14.5); Red Blood Cell (RBC) Count 2.68 mill/uL (4.70-6.10); White Blood Cell (WBC) Count 6.8 10x3/uL (4.8-10.8)
[2022-04-28 05:23] LABS: Anion Gap 13 mmol/L (10-20); BUN (Urea Nitrogen) 14 mg/dL (8.4-25.7); Calc. Creatinine Clearance 19 mL/min (70-130); Calcium 7.9 mg/dL (7.8-10.44); Carbon Dioxide 31 mmol/L (23-31); Chloride 96 mmol/L (98-107); Estimated GFR 18; Glucose 80 mg/dL (83-110); Phosphorus 2.7 mg/dL (2.3-4.7); Sodium 136 mmol/L (136-145)
[2022-04-28] MEDS ORDERED: FLU VACC QS2022-23(65YR UP)/PF 240 MCG/0.7 ML SYRINGE IM ONE (09:00)
[2022-04-28] MEDS: Amlodipine 10 MG TAB PO SCH (09:01)
[2022-04-28] MEDS: Senokot 8.6 MG TAB PO SCH (09:01)
[2022-04-28] MEDS: levETIRAcetam 500 mg/5 ml Oral Solution PO SCH ×2 (09:01→20:28)
[2022-04-28] MEDS: Cilostazol 100 MG TAB PO SCH ×2 (09:01→20:28)
[2022-04-28] MEDS: Metoprolol Tartrate 25 MG TAB PO SCH ×2 (09:02→20:28)
[2022-04-28] MEDS: Heparin 5,000 UNITS/ML VIAL SC SCH ×3 (09:02→20:29)
[2022-04-28] MEDS ORDERED: hydrALAZINE 20 MG/ML VIAL SLOW IVP PRN (09:37)
[2022-04-28] MEDS: Famotidine 20 MG TAB PO SCH (20:29)
[2022-04-29 05:01] LABS: #Basophils 0.1 thou/uL (0.0-0.2); #Eosinphils 0.3 thou/uL (0.0-0.7); #Lymphocytes 1.3 thou/uL (1.20-3.40); #Monocytes 0.6 thou/uL (0.11-0.59); #Neutrophils 2.8 thou/uL (1.40-6.50); %Basophils 1.6 % (0.0-1.0); %Eosinophils 6.4 % (0.0-10.0); %Lymphocytes 26.1 % (21.0-51.0); %Monocytes 11.7 % (0.0-10.0); %Neutrophils 54.2 % (42.0-75.0); Hemoglobin 9.3 g/dL (14.0-18.0); Mean Corpuscular HGB CONC 34.8 g/dL (32.0-36.0); Mean Corpuscular Hemoglobin 35.9 pg (27.0-31.0); Mean Platelet Volume 8.4 fL (7.4-10.4); Platelet Count 111 10x3/uL (130-400); RBC Distribution Width 13.2 % (11.5-14.5); White Blood Cell (WBC) Count 5.2 10x3/uL (4.8-10.8)
[2022-04-29 05:20] LABS: Anion Gap 14 mmol/L (10-20); BUN (Urea Nitrogen) 28 mg/dL (8.4-25.7); Calc. Creatinine Clearance 12 mL/min (70-130); Calcium 7.5 mg/dL (7.8-10.44); Carbon Dioxide 29 mmol/L (23-31); Chloride 95 mmol/L (98-107); Estimated GFR 11; Glucose 93 mg/dL (83-110); Magnesium 2.1 mg/dL (1.6-2.6); Potassium 4.5 mmol/L (3.5-5.1); Sodium 133 mmol/L (136-145)
[2022-04-29] MEDS ORDERED: Aspirin 81 mg Enteric Coated Tablet PO SCH (09:00)
[2022-04-29] MEDS ORDERED: Losartan 25 MG TAB PO SCH (09:00)
[2022-04-29] MEDS ORDERED: Heparin 10,000 UNITS/ 10 ML VIAL ONE (12:28)
[2022-04-29] MEDS: Heparin 5,000 UNITS/ML VIAL SC SCH ×2 (15:16→15:39)
[2022-04-29] MEDS: Senokot 8.6 MG TAB PO SCH (15:38)
[2022-04-29] MEDS: Amlodipine 10 MG TAB PO SCH (15:38)
[2022-04-29] MEDS: Cilostazol 100 MG TAB PO SCH (15:38)
[2022-04-29] MEDS: Metoprolol Tartrate 25 MG TAB PO SCH (15:38)
[2022-04-29] MEDS: levETIRAcetam 500 mg/5 ml Oral Solution PO SCH (15:38)
[2022-04-29 16:06] VITALS: BP 157/72; TEMP 98
== END 2022-04-29 17:40 | disposition home or self-care (01) ==
LOC: ERS 18:19 → ERHOLD 20:29 → 2NO 04-27 15:07
PROVIDERS: ADMIT Internal Medicine; ATTEND Internal Medicine
DX: E11.649 Type 2 diabetes mellitus with hypoglycemia without coma (principal); I12.0 Hypertensive chronic kidney disease with stage 5 chronic kidney disease or end stage renal disease; E11.22 Type 2 diabetes mellitus with diabetic chronic kidney disease; N18.6 End stage renal disease; D63.1 Anemia in chronic kidney disease; N25.81 Secondary hyperparathyroidism of renal origin; E11.51 Type 2 diabetes mellitus with diabetic peripheral angiopathy without gangrene; G40.909 Epilepsy, unspecified, not intractable, without status epilepticus; E83.39 Other disorders of phosphorus metabolism; E78.5 Hyperlipidemia, unspecified; Z79.82 Long term (current) use of aspirin; Z79.899 Other long term (current) drug therapy; Z88.5 Allergy status to narcotic agent; Z89.611 Acquired absence of right leg above knee; Z99.2 Dependence on renal dialysis; Z20.822 Contact with and (suspected) exposure to COVID-19
CPT/HCPCS: 71045; 80048 ×2; 80053; 82805; 82962 ×4; 83605; 83690; 83735 ×3; 84100 ×3; 84484; 85025 ×3; 85610; 86140; 86704; 87040; 87804 ×2; 93005; 96372; 96374; 96375; 96376; 99285; G0378 ×4; U0003; U0005; 36415; 36416; 84443; 90935; G0257; J1644; J2720; J7999

== ENCOUNTER 2023-01-16 04:11 | Inpatient (IN) | payer OTHER, MEDICAID ==
[2023-01-16 05:33] LABS: #Basophils 0.1 thou/uL (0.0-0.2); #Eosinphils 0.4 thou/uL (0.0-0.7); #Monocytes 0.6 thou/uL (0.11-0.59); #Neutrophils 4.4 thou/uL (1.40-6.50); %Eosinophils 5.9 % (0.0-10.0); %Lymphocytes 11.9 % (21.0-51.0); %Monocytes 9.9 % (0.0-10.0); Hematocrit 37.3 % (42.0-52.0); Hemoglobin 12.8 g/dL (14.0-18.0); Mean Corpuscular HGB CONC 34.3 g/dL (32.0-36.0); Mean Corpuscular Hemoglobin 33.6 pg (27.0-31.0); Mean Corpuscular Volume 97.9 fl (78.0-98.0); Mean Platelet Volume 10.4 fL (7.4-10.4); Platelet Count 112 10x3/uL (130-400); Red Blood Cell (RBC) Count 3.81 mill/uL (4.70-6.10); White Blood Cell (WBC) Count 6.2 10x3/uL (4.8-10.8)
[2023-01-16 05:55] LABS: ALT (SGPT) 7 U/L (8-55); AST (SGOT) 10 U/L (5-34); Albumin 3.8 g/dL (3.4-4.8); Alkaline Phosphatase 46 U/L (40-110); Anion Gap 18 mmol/L (10-20); BUN (Urea Nitrogen) 47 mg/dL (8.4-25.7); Bilirubin, Total 0.3 mg/dL (0.2-1.2); Calc. Creatinine Clearance 0 mL/min (70-130); Calcium 8.2 mg/dL (7.8-10.44); Carbon Dioxide 27 mmol/L (23-31); Chloride 97 mmol/L (98-107); Estimated GFR 10; Globulin 2.8 g/dL (2.4-3.5); Glucose 73 mg/dL (83-110); Lipase 28 U/L (8-78); Magnesium 2.2 mg/dL (1.6-2.6); Potassium 3.6 mmol/L (3.5-5.1); Protein, Total 6.6 g/dL (5.8-8.1); Sodium 138 mmol/L (136-145)
[2023-01-16 06:03] LABS: Troponin I 0.022 ng/mL (< 0.028)
[2023-01-16] MEDS ORDERED: cefTRIAXone (ROCEPHIN) 1 GM VIAL ONE (06:19)
[2023-01-16] MEDS ORDERED: Heparin 10,000 UNITS/ 10 ML VIAL ONE (08:25)
[2023-01-16 08:38] LABS: Troponin I 0.019 ng/mL (< 0.028)
[2023-01-16] MEDS ORDERED: Glucagon 1 MG/ML KIT IM PRN (09:01)
[2023-01-16] MEDS ORDERED: Dextrose 5% in Water 1,000 ML IV PRN (09:01)
[2023-01-16] MEDS ORDERED: Dextrose 50% Abboject 50 ML SYRINGE SLOW IVP PRN (09:01)
[2023-01-16] MEDS ORDERED: Senokot S 8.6-50 MG TAB PO PRN (09:04)
[2023-01-16] MEDS ORDERED: Acetaminophen 325 MG TAB PO PRN (09:04)
[2023-01-16] MEDS ORDERED: hydrALAZINE 25 MG TAB PO PRN (09:13)
[2023-01-16] MEDS ORDERED: levETIRAcetam 500 MG TAB PO SCH (09:15)
[2023-01-16] MEDS ORDERED: Amlodipine 5 MG TAB PO SCH (09:15)
[2023-01-16] MEDS ORDERED: Dextrose 10% in Water 1,000 ML IV SCH (09:15)
[2023-01-16] MEDS ORDERED: Cilostazol 100 MG TAB PO SCH (09:30)
[2023-01-16 09:39] VITALS: BMI 22.4
[2023-01-16 12:02] LABS: SARS-CoV-2 NAA Rapid Test Not Detected (NotDetected)
[2023-01-16 12:15] LABS: Troponin I 0.015 ng/mL (< 0.028)
[2023-01-16] MEDS ORDERED: FLU VACC QS2023(65UP)/MF59C/PF 60 MCG/0.5 ML SYRINGE IM ONE (14:00)
[2023-01-16 16:53] LABS: HBSAB Concentration Less than 8.00 mIU/mL; Hep B Core Total Ab Non-Reactive (NonReactive); Hep B Core Total Index 0.15 S/CO (0-0.79); Hep B Surf AB Non-Reactive (NonReactive); Hep C IgG Ab Non-Reactive S/CO (NonReactive); Hep C Index 0.13 S/CO (0-0.79)
[2023-01-16] MEDS: Carvedilol 3.125 MG TAB PO SCH (17:12)
[2023-01-16 18:01] LABS: Hep B Surf Ag Non-Reactive S/CO (NonReactive)
[2023-01-16] MEDS ORDERED: Loperamide HCl 2 MG CAP PO PRN (18:17)
[2023-01-16 18:20] LABS: HBSAg Index 0.34 S/CO (0-0.99)
[2023-01-16] MEDS: levETIRAcetam 500 MG TAB PO SCH (21:22)
[2023-01-16] MEDS: Losartan 25 MG TAB PO SCH (21:22)
[2023-01-16] MEDS: Saccharomyces boulardii 250 MG CAP PO SCH (21:23)
[2023-01-16] MEDS: Heparin 5,000 UNITS/ML VIAL SC SCH (21:23)
[2023-01-16] MEDS: Amlodipine 5 MG TAB PO SCH (21:23)
[2023-01-16] MEDS: Doxycycline 100 MG CAP PO SCH (21:23)
[2023-01-16] MEDS: Famotidine 20 MG TAB PO SCH (21:23)
[2023-01-17 04:12] LABS: Anion Gap 18 mmol/L (10-20); BUN (Urea Nitrogen) 17 mg/dL (8.4-25.7); Calc. Creatinine Clearance 18 mL/min (70-130); Calcium 8.4 mg/dL (7.8-10.44); Carbon Dioxide 19 mmol/L (23-31); Chloride 98 mmol/L (98-107); Estimated GFR 19; Glucose 77 mg/dL (83-110); Potassium 4.5 mmol/L (3.5-5.1); Sodium 130 mmol/L (136-145)
[2023-01-17 05:33] LABS: #Basophils 0.1 thou/uL (0.0-0.2); #Eosinphils 0.3 thou/uL (0.0-0.7); #Monocytes 0.8 thou/uL (0.11-0.59); #Neutrophils 4.1 thou/uL (1.40-6.50); %Eosinophils 5.3 % (0.0-10.0); %Lymphocytes 13.7 % (21.0-51.0); %Monocytes 12.4 % (0.0-10.0); %Neutrophils 67.4 % (42.0-75.0); Hematocrit 35.3 % (42.0-52.0); Hemoglobin 12.4 g/dL (14.0-18.0); Mean Corpuscular HGB CONC 35.1 g/dL (32.0-36.0); Mean Corpuscular Hemoglobin 34.1 pg (27.0-31.0); Mean Platelet Volume 10.9 fL (7.4-10.4); Platelet Count 115 10x3/uL (130-400); RBC Distribution Width 14.1 % (11.5-14.5); Red Blood Cell (RBC) Count 3.64 mill/uL (4.70-6.10); White Blood Cell (WBC) Count 6.1 10x3/uL (4.8-10.8)
[2023-01-17] MEDS: cefTRIAXone\\ROCEPHIN 1 GM in Sodium Chloride 0.9% 100 ML IVPB SCH (06:42)
[2023-01-17] MEDS ORDERED: Dextrose 10% in Water 1,000 ML IV SCH (06:45)
[2023-01-17] MEDS: Doxycycline 100 MG CAP PO SCH ×2 (07:59→21:25)
[2023-01-17] MEDS: levETIRAcetam 500 MG TAB PO SCH ×2 (07:59→21:26)
[2023-01-17] MEDS: Carvedilol 3.125 MG TAB PO SCH ×2 (07:59→17:36)
[2023-01-17] MEDS: Losartan 25 MG TAB PO SCH ×2 (07:59→21:25)
[2023-01-17] MEDS: Amlodipine 5 MG TAB PO SCH ×2 (07:59→21:25)
[2023-01-17] MEDS: Heparin 5,000 UNITS/ML VIAL SC SCH ×2 (07:59→20:24)
[2023-01-17] MEDS: Cilostazol 100 MG TAB PO SCH (07:59)
[2023-01-17 13:28] LABS: Campy jejuni + coli by PCR Negative (Negative); STEC Shiga Toxin 1+2 Negative (Negative); Salmonella spp. by PCR Negative (Negative); Shigella spp + EIEC by PCR Negative (Negative)
[2023-01-17] MEDS: Dextrose 10% in Water 1,000 ML IV SCH ×2 (18:37→20:08)
[2023-01-17] MEDS ORDERED: hydrALAZINE 20 MG/ML VIAL SLOW IVP PRN (21:09)
[2023-01-17] MEDS: Saccharomyces boulardii 250 MG CAP PO SCH (21:25)
[2023-01-17] MEDS ORDERED: levETIRAcetam 500 MG/5 ML VIAL SLOW IVP SCH (21:45)
[2023-01-17] MEDS: Labetalol HCl 100 MG/20 ML VIAL SLOW IVP PRN (22:26)
[2023-01-18] MEDS: cefTRIAXone\\ROCEPHIN 1 GM in Sodium Chloride 0.9% 100 ML IVPB SCH (06:13)
[2023-01-18] MEDS: Dextrose 10% in Water 1,000 ML IV SCH ×3 (06:17→21:28)
[2023-01-18] MEDS: Amlodipine 5 MG TAB PO SCH ×2 (08:53→21:31)
[2023-01-18] MEDS: Carvedilol 3.125 MG TAB PO SCH ×2 (08:53→16:20)
[2023-01-18] MEDS: Losartan 25 MG TAB PO SCH ×2 (08:54→21:18)
[2023-01-18] MEDS: Cilostazol 100 MG TAB PO SCH (08:54)
[2023-01-18] MEDS: Doxycycline 100 MG CAP PO SCH ×2 (08:54→21:18)
[2023-01-18] MEDS: Labetalol HCl 100 MG/20 ML VIAL SLOW IVP PRN (08:57)
[2023-01-18] MEDS: levETIRAcetam 500 MG/5 ML VIAL SLOW IVP SCH ×2 (08:58→21:18)
[2023-01-18] MEDS: Heparin 5,000 UNITS/ML VIAL SC SCH ×2 (08:59→21:19)
[2023-01-18] MEDS ORDERED: Heparin 10,000 UNITS/ 10 ML VIAL ONE (08:59)
[2023-01-18] MEDS: metroNIDAZOLE 500 MG in Premix Bag 1 BAG IVPB SCH ×2 (09:48→17:46)
[2023-01-18] MEDS: Famotidine 20 MG TAB PO SCH (21:19)
[2023-01-18] MEDS: Saccharomyces boulardii 250 MG CAP PO SCH (21:19)
[2023-01-19] MEDS: metroNIDAZOLE 500 MG in Premix Bag 1 BAG IVPB SCH ×3 (01:13→17:50)
[2023-01-19 05:05] LABS: Hemoglobin 12.6 g/dL (14.0-18.0); Mean Corpuscular Hemoglobin 33.2 pg (27.0-31.0); Mean Corpuscular Volume 94.7 fl (78.0-98.0); Mean Platelet Volume 10.6 fL (7.4-10.4); Platelet Count 108 10x3/uL (130-400); RBC Distribution Width 13.4 % (11.5-14.5); White Blood Cell (WBC) Count 4.2 10x3/uL (4.8-10.8)
[2023-01-19 05:29] LABS: Anion Gap 11 mmol/L (10-20); BUN (Urea Nitrogen) 12 mg/dL (8.4-25.7); Calc. Creatinine Clearance 19 mL/min (70-130); Calcium 8.1 mg/dL (7.8-10.44); Carbon Dioxide 28 mmol/L (23-31); Chloride 92 mmol/L (98-107); Estimated GFR 21; Glucose 106 mg/dL (83-110); Sodium 127 mmol/L (136-145)
[2023-01-19] MEDS: cefTRIAXone\\ROCEPHIN 1 GM in Sodium Chloride 0.9% 100 ML IVPB SCH (05:34)
[2023-01-19] MEDS: Amlodipine 5 MG TAB PO SCH (09:11)
[2023-01-19] MEDS: Heparin 5,000 UNITS/ML VIAL SC SCH ×2 (09:11→20:41)
[2023-01-19] MEDS: Losartan 25 MG TAB PO SCH (09:11)
[2023-01-19] MEDS: Doxycycline 100 MG CAP PO SCH ×2 (09:11→20:25)
[2023-01-19] MEDS: Cilostazol 100 MG TAB PO SCH ×2 (09:11→20:25)
[2023-01-19] MEDS: Carvedilol 3.125 MG TAB PO SCH (09:11)
[2023-01-19] MEDS: levETIRAcetam 500 MG/5 ML VIAL SLOW IVP SCH (09:12)
[2023-01-19] MEDS ORDERED: Cosyntropin 250 MCG VIAL SLOW IVP SCH (11:30)
[2023-01-19] MEDS: Dextrose 10% in Water 1,000 ML IV SCH (15:27)
[2023-01-19] MEDS: levETIRAcetam 500 mg/5 ml Oral Solution PO SCH (20:24)
[2023-01-19] MEDS: Carvedilol 6.25 MG TAB PO SCH (20:25)
[2023-01-19] MEDS: Saccharomyces boulardii 250 MG CAP PO SCH (20:25)
[2023-01-20] MEDS: metroNIDAZOLE 500 MG in Premix Bag 1 BAG IVPB SCH ×4 (01:45→23:54)
[2023-01-20] MEDS: cefTRIAXone\\ROCEPHIN 1 GM in Sodium Chloride 0.9% 100 ML IVPB SCH (05:15)
[2023-01-20] MEDS ORDERED: Heparin 10,000 UNITS/ 10 ML VIAL ONE (09:00)
[2023-01-20] MEDS: Losartan 25 MG TAB PO SCH (15:47)
[2023-01-20] MEDS: Cilostazol 100 MG TAB PO SCH ×2 (15:47→21:08)
[2023-01-20] MEDS: Amlodipine 10 MG TAB PO SCH (15:48)
[2023-01-20] MEDS: Heparin 5,000 UNITS/ML VIAL SC SCH ×3 (15:48→21:53)
[2023-01-20] MEDS: levETIRAcetam 500 mg/5 ml Oral Solution PO SCH ×2 (15:48→21:54)
[2023-01-20] MEDS: Doxycycline 100 MG CAP PO SCH ×2 (15:48→21:07)
[2023-01-20] MEDS: Aspirin 81 mg Enteric Coated Tablet PO SCH (15:48)
[2023-01-20] MEDS: Carvedilol 6.25 MG TAB PO SCH ×2 (15:48→21:08)
[2023-01-20] MEDS: Famotidine 20 MG TAB PO SCH (21:54)
[2023-01-20] MEDS: Saccharomyces boulardii 250 MG CAP PO SCH (22:03)
[2023-01-21 04:32] VITALS: TEMP 98.1
[2023-01-21] MEDS: cefTRIAXone\\ROCEPHIN 1 GM in Sodium Chloride 0.9% 100 ML IVPB SCH (05:47)
[2023-01-21] MEDS: metroNIDAZOLE 500 MG in Premix Bag 1 BAG IVPB SCH (09:02)
[2023-01-21] MEDS: Losartan 25 MG TAB PO SCH (09:03)
[2023-01-21] MEDS: Carvedilol 6.25 MG TAB PO SCH (09:03)
[2023-01-21] MEDS: Doxycycline 100 MG CAP PO SCH (09:03)
[2023-01-21] MEDS: Cilostazol 100 MG TAB PO SCH (09:03)
[2023-01-21] MEDS: Heparin 5,000 UNITS/ML VIAL SC SCH (09:03)
[2023-01-21] MEDS: Aspirin 81 mg Enteric Coated Tablet PO SCH (09:03)
[2023-01-21] MEDS: levETIRAcetam 500 mg/5 ml Oral Solution PO SCH (09:03)
[2023-01-21] MEDS: Amlodipine 10 MG TAB PO SCH (09:03)
[2023-01-21 11:54] VITALS: BP 172/68
== END 2023-01-21 12:52 | disposition home or self-care (01) | DRG 637 ==
LOC: ERS 04:11 → IMCU/EMU 09:16 → 2SE 01-18 18:14
PROVIDERS: ADMIT Internal Medicine; ATTEND Family Medicine
DX: E11.649 Type 2 diabetes mellitus with hypoglycemia without coma (principal); G93.41 Metabolic encephalopathy; J69.0 Pneumonitis due to inhalation of food and vomit; I12.0 Hypertensive chronic kidney disease with stage 5 chronic kidney disease or end stage renal disease; N18.6 End stage renal disease; Z51.5 Encounter for palliative care; I44.0 Atrioventricular block, first degree; G40.909 Epilepsy, unspecified, not intractable, without status epilepticus; E11.51 Type 2 diabetes mellitus with diabetic peripheral angiopathy without gangrene; T68.XXXA Hypothermia, initial encounter; E11.22 Type 2 diabetes mellitus with diabetic chronic kidney disease; D63.1 Anemia in chronic kidney disease; R53.81 Other malaise; Z20.822 Contact with and (suspected) exposure to COVID-19; R19.7 Diarrhea, unspecified; R13.12 Dysphagia, oropharyngeal phase; Z99.2 Dependence on renal dialysis; Z88.8 Allergy status to other drugs, medicaments and biological substances; Z79.82 Long term (current) use of aspirin; Z79.899 Other long term (current) drug therapy; Z89.611 Acquired absence of right leg above knee
CPT/HCPCS: 36415; 36416; 70450; 71045; 74230; 80048; 80053; 80400; 82533; 83036; 83605; 83630; 83690; 83735; 84145; 84484; 85025; 85027; 86704; 87040; 87324; 87449; 87505; 90935; 93005; 96365; G0257; J0696; J0834; J1644; J1953; J3490

== ENCOUNTER 2023-04-03 09:32 | Emergency (ER) | payer OTHER, MEDICAID | END 2023-04-03 11:49 | disposition home or self-care (01) | LOC: ERS 09:32 | DX: K59.00 Constipation, unspecified (principal); I12.0 Hypertensive chronic kidney disease with stage 5 chronic kidney disease or end stage renal disease; E11.22 Type 2 diabetes mellitus with diabetic chronic kidney disease; N18.6 End stage renal disease; Z99.2 Dependence on renal dialysis; Z79.82 Long term (current) use of aspirin; Z79.899 Other long term (current) drug therapy | CPT/HCPCS: 74018 ==

== ENCOUNTER 2024-04-29 12:49 | Emergency (ER) | payer OTHER, MEDICAID ==
[2024-04-29 13:49] LABS: %Basophils 1.6 % (0.0-1.0); %Eosinophils 8.9 % (0.0-10.0); %Lymphocytes 15.7 % (21.0-51.0); %Monocytes 9.1 % (0.0-10.0); %Neutrophils 64.4 % (42.0-75.0); Hematocrit 32.3 % (42.0-52.0); Mean Corpuscular HGB CONC 34.1 g/dL (32.0-36.0); Mean Corpuscular Hemoglobin 32.2 pg (27.0-31.0); Mean Corpuscular Volume 94.4 fL (78.0-98.0); Mean Platelet Volume 9.8 fL (7.4-10.4); Platelet Count 138 10x3/uL (130-400); RBC Distribution Width 14.9 % (11.5-14.5); Red Blood Cell (RBC) Count 3.42 mill/uL (4.70-6.10)
[2024-04-29 14:09] LABS: ALT (SGPT) Less than 7 U/L (Less than 45); AST (SGOT) 15 U/L (11-34); Albumin 3.3 g/dL (3.1-4.5); Alkaline Phosphatase 50 U/L (40-110); Anion Gap 14 mmol/L (10-20); BUN (Urea Nitrogen) 32 mg/dL (8.4-25.7); Bilirubin, Total 0.5 mg/dL (0.3-1.2); Calc. Creatinine Clearance 0 mL/min (70-130); Calcium 8.2 mg/dL (7.8-10.44); Carbon Dioxide 31 mmol/L (23-31); Chloride 98 mmol/L (98-107); Estimated GFR 15; Globulin 3.7 g/dL (2.4-3.5); Glucose 102 mg/dL (83-110); Potassium 4.7 mmol/L (3.5-5.1); Sodium 138 mmol/L (136-145)
[2024-04-29 14:13] LABS: Troponin I 0.028 ng/mL (< 0.028)
== END 2024-04-29 16:00 | disposition home or self-care (01) ==
LOC: ERS 12:49
DX: R07.9 Chest pain, unspecified (principal); I12.0 Hypertensive chronic kidney disease with stage 5 chronic kidney disease or end stage renal disease; E11.22 Type 2 diabetes mellitus with diabetic chronic kidney disease; N18.6 End stage renal disease; Z75.8 Other problems related to medical facilities and other health care; Z99.2 Dependence on renal dialysis
CPT/HCPCS: 36415; 70450; 71045; 80053; 83880; 84484; 85025; 93005; 94760

== ENCOUNTER 2024-11-10 13:14 | Inpatient (IN) | payer OTHER ==
[2024-11-10 13:38] LABS: #Basophils 0.06 10x3/uL (0.0-0.2); #Eosinophils 0.42 10x3/uL (0.0-0.7); #Monocytes 0.71 10x3/uL (0.11-0.59); #Neutrophils 4.54 10x3/uL (1.40-6.50); %Basophils 0.9 % (0.0-1.0); %Eosinophils 6.5 % (0.0-10.0); %Lymphocytes 11.4 % (21.0-51.0); %Monocytes 10.9 % (0.0-10.0); %Neutrophils 69.8 % (42.0-75.0); Hematocrit 28.8 % (42.0-52.0); Hemoglobin 9.9 g/dL (14.0-18.0); Mean Corpuscular Hemoglobin 33.1 pg (27.0-31.0); Mean Corpuscular Volume 96.3 fL (78.0-98.0); Platelet Count 153 10x3/uL (130-400); Red Blood Cell (RBC) Count 2.99 mill/uL (4.70-6.10); White Blood Cell (WBC) Count 6.50 10x3/uL (4.8-10.8)
[2024-11-10 13:51] LABS: INR-International Normal Ratio 1.1; Prothrombin Time 14.6 sec (12.0-14.7)
[2024-11-10 13:53] LABS: PTT 43.2 sec (22.9-36.1)
[2024-11-10 13:59] LABS: Troponin I 0.021 ng/mL (< 0.028)
[2024-11-10 14:16] LABS: ALT (SGPT) Less than 7 U/L (Less than 45); AST (SGOT) 18 U/L (11-34); Albumin 2.9 g/dL (3.1-4.5); Alkaline Phosphatase 45 U/L (40-110); Anion Gap 22 mmol/L (10-20); BUN (Urea Nitrogen) 99 mg/dL (8.4-25.7); Bilirubin, Total 0.3 mg/dL (0.3-1.2); Calc. Creatinine Clearance 0 mL/min (70-130); Calcium 7.1 mg/dL (7.8-10.44); Carbon Dioxide 21 mmol/L (23-31); Chloride 98 mmol/L (98-107); Globulin 3.3 g/dL (2.4-3.5); Glucose 149 mg/dL (83-110); Potassium 6.4 mmol/L (3.5-5.1); Sodium 135 mmol/L (136-145)
[2024-11-10] MEDS ORDERED: Dextrose 50% Abboject 50 ML SYRINGE SLOW IVP PRN (15:34)
[2024-11-10] MEDS ORDERED: Glucagon 1 MG/ML KIT IM PRN (15:34)
[2024-11-10] MEDS ORDERED: Ondansetron PF 4 MG/2 ML Vial IVP PRN (15:34)
[2024-11-10] MEDS ORDERED: Senokot S 8.6-50 MG TAB PO PRN (15:34)
[2024-11-10 16:37] LABS: HBSAB Concentration Less than 8.00 mIU/mL
[2024-11-10 16:43] LABS: Hep B Core Total Ab NONREACTIVE (NonReactive); Hep B Core Total Index 0.07 S/CO (0-0.79); Hep B Surf Ag NONREACTIVE S/CO (NonReactive)
[2024-11-10 16:44] LABS: Hep C IgG Ab NONREACTIVE S/CO (NonReactive); Hep C Index 0.06 S/CO (0-0.79)
[2024-11-10 22:52] VITALS: BMI 20.9
[2024-11-10] MEDS: levETIRAcetam 500 MG TAB PO SCH (22:54)
[2024-11-10] MEDS: Heparin 5,000 UNITS/ML VIAL SC SCH (22:54)
[2024-11-11] MEDS: hydrALAZINE 20 MG/ML VIAL SLOW IVP PRN (04:49)
[2024-11-11 06:11] LABS: #Basophils 0.06 10x3/uL (0.0-0.2); #Eosinophils 0.45 10x3/uL (0.0-0.7); #Monocytes 0.70 10x3/uL (0.11-0.59); #Neutrophils 3.73 10x3/uL (1.40-6.50); %Basophils 1.1 % (0.0-1.0); %Eosinophils 8.0 % (0.0-10.0); %Lymphocytes 11.7 % (21.0-51.0); %Monocytes 12.5 % (0.0-10.0); %Neutrophils 66.3 % (42.0-75.0); Hematocrit 31.4 % (42.0-52.0); Hemoglobin 10.7 g/dL (14.0-18.0); Mean Corpuscular Hemoglobin 32.6 pg (27.0-31.0); Mean Corpuscular Volume 95.7 fL (78.0-98.0); Platelet Count 161 10x3/uL (130-400); Red Blood Cell (RBC) Count 3.28 mill/uL (4.70-6.10); White Blood Cell (WBC) Count 5.62 10x3/uL (4.8-10.8)
[2024-11-11 06:32] LABS: Anion Gap 17 mmol/L (10-20); BUN (Urea Nitrogen) 22 mg/dL (8.4-25.7); Calc. Creatinine Clearance 13 mL/min (70-130); Calcium 7.7 mg/dL (7.8-10.44); Carbon Dioxide 23 mmol/L (23-31); Cardiac Risk 5.0 (Less than 4.5); Chloride 102 mmol/L (98-107); Cholesterol 125 mg/dl (< 200 Desired); Glucose 78 mg/dL (83-110); HDL Cholesterol 25 mg/dL (>60 Neg Risk); LDL Cholesterol, Calculated 86 mg/dL; Potassium 4.5 mmol/L (3.5-5.1); Sodium 137 mmol/L (136-145); Triglycerides 71 mg/dL (Less than 150)
[2024-11-11] MEDS: Aspirin 81 mg Enteric Coated Tablet PO SCH (12:04)
[2024-11-11 15:55] VITALS: BMI 20.9
[2024-11-11] MEDS: Acetaminophen 325 MG TAB PO PRN (22:27)
[2024-11-11] MEDS: levETIRAcetam 500 MG (5 mL) VIAL SLOW IVP SCH (23:42)
[2024-11-12 04:49] LABS: Hematocrit 29.8 % (42.0-52.0); Hemoglobin 9.8 g/dL (14.0-18.0); Mean Corpuscular Hemoglobin 32.5 pg (27.0-31.0); Mean Corpuscular Volume 98.7 fL (78.0-98.0); Platelet Count 161 10x3/uL (130-400); Red Blood Cell (RBC) Count 3.02 mill/uL (4.70-6.10); White Blood Cell (WBC) Count 5.58 10x3/uL (4.8-10.8)
[2024-11-12 05:16] LABS: Anion Gap 12 mmol/L (10-20); BUN (Urea Nitrogen) 15 mg/dL (8.4-25.7); Calc. Creatinine Clearance 17 mL/min (70-130); Calcium 7.8 mg/dL (7.8-10.44); Carbon Dioxide 27 mmol/L (23-31); Chloride 101 mmol/L (98-107); Glucose 74 mg/dL (83-110); Potassium 4.3 mmol/L (3.5-5.1); Sodium 136 mmol/L (136-145)
[2024-11-12] MEDS: levETIRAcetam 500 MG (5 mL) VIAL SLOW IVP SCH (09:11)
[2024-11-12] MEDS: Losartan 25 MG TAB PO SCH ×2 (13:02→19:58)
[2024-11-12] MEDS: Carvedilol 25 MG TAB PO SCH (19:58)
[2024-11-12] MEDS: cloNIDine 0.1 MG TAB PO SCH (22:05)
[2024-11-13] MEDS: EPOETIN ALFA-EPBX (ESRD) 10,000 UNITS/ML VIAL IVP SCH (13:44)
[2024-11-13 14:00] LABS: Anion Gap 11 mmol/L (10-20); BUN (Urea Nitrogen) 12 mg/dL (8.4-25.7); Calc. Creatinine Clearance 22 mL/min (70-130); Calcium 7.9 mg/dL (7.8-10.44); Carbon Dioxide 29 mmol/L (23-31); Chloride 101 mmol/L (98-107); Glucose 88 mg/dL (83-110); Potassium 4.4 mmol/L (3.5-5.1); Sodium 137 mmol/L (136-145)
[2024-11-15 04:38] VITALS: BP 126/57; TEMP 98.2
== END 2024-11-15 16:08 | disposition home health service (06) | DRG 69 ==
LOC: ERS 13:14 → 2NO 15:17 → OBSVTOIN 11-12 08:08
PROVIDERS: ADMIT Family Medicine; ATTEND Internal Medicine
DX: G45.9 Transient cerebral ischemic attack, unspecified (principal); N18.6 End stage renal disease; I12.0 Hypertensive chronic kidney disease with stage 5 chronic kidney disease or end stage renal disease; E87.29 Other acidosis; R47.81 Slurred speech; E78.5 Hyperlipidemia, unspecified; G40.909 Epilepsy, unspecified, not intractable, without status epilepticus; E11.22 Type 2 diabetes mellitus with diabetic chronic kidney disease; E87.5 Hyperkalemia; D64.9 Anemia, unspecified; Z88.8 Allergy status to other drugs, medicaments and biological substances; Z98.890 Other specified postprocedural states; Z79.899 Other long term (current) drug therapy
CPT/HCPCS: 36415; 36416; 70450; 70551; 71045; 74230; 80048; 80053; 80061; 84484; 85025; 85027; 85610; 85730; 86704; 86706; 86803; 87340; 93005; 93880; 94760; 96372; 96374; 96375; 97139; G0378; J0360; J1644; J1953; Q5105

== ENCOUNTER 2024-12-29 13:05 | Inpatient (IN) | payer OTHER ==
[~2024-12-29 13:05] MED LIST: Iopamidol-370 76% 500 ML MDV (1 ML CHARGE) ONE
[2024-12-29 14:00] LABS: #Basophils 0.07 10x3/uL (0.0-0.2); #Eosinophils 0.03 10x3/uL (0.0-0.7); #Monocytes 2.13 10x3/uL (0.11-0.59); #Neutrophils 16.76 10x3/uL (1.40-6.50); %Basophils 0.3 % (0.0-1.0); %Eosinophils 0.1 % (0.0-10.0); %Lymphocytes 4.6 % (21.0-51.0); %Monocytes 10.6 % (0.0-10.0); %Neutrophils 83.9 % (42.0-75.0); Hematocrit 31.4 % (42.0-52.0); Hemoglobin 10.3 g/dL (14.0-18.0); Mean Corpuscular Hemoglobin 32.7 pg (27.0-31.0); Mean Corpuscular Volume 99.7 fL (78.0-98.0); Platelet Count 158 10x3/uL (130-400); Red Blood Cell (RBC) Count 3.15 mill/uL (4.70-6.10); White Blood Cell (WBC) Count 20.03 10x3/uL (4.8-10.8)
[2024-12-29 14:16] LABS: ALT (SGPT) Less than 7 U/L (Less than 45); AST (SGOT) 14 U/L (11-34); Albumin 2.4 g/dL (3.1-4.5); Alkaline Phosphatase 56 U/L (40-110); Anion Gap 15 mmol/L (10-20); BUN (Urea Nitrogen) 28 mg/dL (8.4-25.7); Bilirubin, Total 0.7 mg/dL (0.3-1.2); CK (CPK) 29 U/L (30-200); Calc. Creatinine Clearance 0 mL/min (70-130); Calcium 7.9 mg/dL (7.8-10.44); Carbon Dioxide 20 mmol/L (23-31); Chloride 103 mmol/L (98-107); Globulin 2.9 g/dL (2.4-3.5); Glucose 105 mg/dL (83-110); Potassium 3.8 mmol/L (3.5-5.1); Sodium 134 mmol/L (136-145)
[2024-12-29] MEDS ORDERED: Cefepime 2 GM VIAL ONE (14:45)
[2024-12-29] MEDS ORDERED: Dextrose 50% Abboject 50 ML SYRINGE SLOW IVP PRN (18:10)
[2024-12-29] MEDS ORDERED: Glucagon 1 MG/ML KIT IM PRN (18:10)
[2024-12-29] MEDS: Acetaminophen 325 MG TAB PO PRN (21:49)
[2024-12-29] MEDS: Heparin 5,000 UNITS/ML VIAL SC SCH (21:49)
[2024-12-29] MEDS: levETIRAcetam 500 MG TAB PO SCH (21:49)
[2024-12-30 00:57] VITALS: BMI 22.8
[2024-12-30 06:29] LABS: #Basophils 0.08 10x3/uL (0.0-0.2); #Eosinophils 0.07 10x3/uL (0.0-0.7); #Monocytes 1.75 10x3/uL (0.11-0.59); #Neutrophils 16.53 10x3/uL (1.40-6.50); %Basophils 0.4 % (0.0-1.0); %Eosinophils 0.4 % (0.0-10.0); %Lymphocytes 4.2 % (21.0-51.0); %Monocytes 9.0 % (0.0-10.0); %Neutrophils 85.2 % (42.0-75.0); Hematocrit 33.8 % (42.0-52.0); Hemoglobin 10.8 g/dL (14.0-18.0); Mean Corpuscular Hemoglobin 32.2 pg (27.0-31.0); Mean Corpuscular Volume 100.9 fL (78.0-98.0); Platelet Count 160 10x3/uL (130-400); Red Blood Cell (RBC) Count 3.35 mill/uL (4.70-6.10); White Blood Cell (WBC) Count 19.40 10x3/uL (4.8-10.8)
[2024-12-30 06:48] LABS: Anion Gap 16 mmol/L (10-20); BUN (Urea Nitrogen) 40 mg/dL (8.4-25.7); Calc. Creatinine Clearance 9 mL/min (70-130); Calcium 8.3 mg/dL (7.8-10.44); Carbon Dioxide 18 mmol/L (23-31); Chloride 105 mmol/L (98-107); Glucose 73 mg/dL (83-110); Potassium 3.8 mmol/L (3.5-5.1); Sodium 135 mmol/L (136-145)
[2024-12-30 07:48] LABS: Hep B Core Total Index 0.07 S/CO (0-0.79); Hep C Index 0.05 S/CO (0-0.79)
[2024-12-30 08:19] LABS: Hep B Surf Ag NONREACTIVE S/CO (NonReactive)
[2024-12-30 08:28] LABS: HBSAB Concentration Less than 8.00 mIU/mL; Hep B Core Total Ab NONREACTIVE (NonReactive); Hep C IgG Ab NONREACTIVE S/CO (NonReactive)
[2024-12-30] MEDS: Aspirin 81 mg Enteric Coated Tablet PO SCH (08:49)
[2024-12-31 01:41] LABS: Campy jejuni + coli by PCR Negative (Negative); STEC Shiga Toxin 1+2 Negative (Negative); Salmonella spp. by PCR Negative (Negative); Shigella spp + EIEC by PCR Negative (Negative)
[2024-12-31 10:59] VITALS: BMI 22.8
[2024-12-31] MEDS: Carvedilol 6.25 MG TAB PO SCH ×2 (11:25→20:36)
[2024-12-31 11:57] LABS: #Basophils 0.08 10x3/uL (0.0-0.2); #Eosinophils 0.15 10x3/uL (0.0-0.7); #Monocytes 1.63 10x3/uL (0.11-0.59); #Neutrophils 14.49 10x3/uL (1.40-6.50); %Basophils 0.5 % (0.0-1.0); %Eosinophils 0.9 % (0.0-10.0); %Lymphocytes 4.5 % (21.0-51.0); %Monocytes 9.5 % (0.0-10.0); %Neutrophils 84.1 % (42.0-75.0); Hematocrit 34.7 % (42.0-52.0); Hemoglobin 11.4 g/dL (14.0-18.0); Mean Corpuscular Hemoglobin 32.2 pg (27.0-31.0); Mean Corpuscular Volume 98.0 fL (78.0-98.0); Platelet Count 203 10x3/uL (130-400); Red Blood Cell (RBC) Count 3.54 mill/uL (4.70-6.10); White Blood Cell (WBC) Count 17.21 10x3/uL (4.8-10.8)
[2024-12-31 12:16] LABS: ALT (SGPT) 7 U/L (Less than 45); AST (SGOT) 26 U/L (11-34); Albumin 2.4 g/dL (3.1-4.5); Alkaline Phosphatase 68 U/L (40-110); Anion Gap 17 mmol/L (10-20); BUN (Urea Nitrogen) 18 mg/dL (8.4-25.7); Bilirubin, Total 0.7 mg/dL (0.3-1.2); Calc. Creatinine Clearance 14 mL/min (70-130); Calcium 8.3 mg/dL (7.8-10.44); Carbon Dioxide 25 mmol/L (23-31); Chloride 101 mmol/L (98-107); Globulin 3.7 g/dL (2.4-3.5); Glucose 67 mg/dL (83-110); Potassium 3.9 mmol/L (3.5-5.1); Sodium 139 mmol/L (136-145)
[2024-12-31] MEDS ORDERED: Non-Formulary Item 1 EACH (Hydralazine Hcl [Hydralazine Hcl] 50 MG Tablet) PO SCH (15:00)
[2024-12-31] MEDS ORDERED: Non-Formulary Item 1 EACH (Carvedilol [Coreg] 12.5 MG Tablet) PO SCH (21:00)
[2025-01-01 06:25] LABS: #Basophils 0.08 10x3/uL (0.0-0.2); #Eosinophils 0.16 10x3/uL (0.0-0.7); #Monocytes 1.59 10x3/uL (0.11-0.59); #Neutrophils 11.39 10x3/uL (1.40-6.50); %Basophils 0.6 % (0.0-1.0); %Eosinophils 1.1 % (0.0-10.0); %Lymphocytes 6.3 % (21.0-51.0); %Monocytes 11.2 % (0.0-10.0); %Neutrophils 80.1 % (42.0-75.0); Hematocrit 34.5 % (42.0-52.0); Hemoglobin 11.1 g/dL (14.0-18.0); Mean Corpuscular Hemoglobin 31.7 pg (27.0-31.0); Mean Corpuscular Volume 98.6 fL (78.0-98.0); Platelet Count 203 10x3/uL (130-400); Red Blood Cell (RBC) Count 3.50 mill/uL (4.70-6.10); White Blood Cell (WBC) Count 14.22 10x3/uL (4.8-10.8)
[2025-01-01 06:38] LABS: ALT (SGPT) 8 U/L (Less than 45); AST (SGOT) 28 U/L (11-34); Albumin 2.3 g/dL (3.1-4.5); Alkaline Phosphatase 69 U/L (40-110); Anion Gap 13 mmol/L (10-20); BUN (Urea Nitrogen) 24 mg/dL (8.4-25.7); Bilirubin, Total 0.5 mg/dL (0.3-1.2); Calc. Creatinine Clearance 11 mL/min (70-130); Calcium 8.2 mg/dL (7.8-10.44); Carbon Dioxide 27 mmol/L (23-31); Chloride 102 mmol/L (98-107); Globulin 3.6 g/dL (2.4-3.5); Glucose 120 mg/dL (83-110); Potassium 3.7 mmol/L (3.5-5.1); Sodium 138 mmol/L (136-145)
[2025-01-01] MEDS: cefTRIAXone\\ROCEPHIN 1 GM in Sodium Chloride 0.9% 100 ML IVPB SCH (11:20)
[2025-01-01 16:24] LABS: Campy jejuni + coli by PCR Negative (Negative); STEC Shiga Toxin 1+2 Negative (Negative); Salmonella spp. by PCR Negative (Negative); Shigella spp + EIEC by PCR Negative (Negative)
[2025-01-01] MEDS: Pantoprazole 40 MG VIAL IVP SCH (16:50)
[2025-01-02 00:23] LABS: Hematocrit 32.4 % (42.0-52.0); Hemoglobin 10.5 g/dL (14.0-18.0); Platelet Count 199 10x3/uL (130-400)
[2025-01-02 06:35] LABS: #Basophils 0.09 10x3/uL (0.0-0.2); #Eosinophils 0.20 10x3/uL (0.0-0.7); #Monocytes 1.28 10x3/uL (0.11-0.59); #Neutrophils 7.76 10x3/uL (1.40-6.50); %Basophils 0.9 % (0.0-1.0); %Eosinophils 1.9 % (0.0-10.0); %Lymphocytes 10.2 % (21.0-51.0); %Monocytes 12.2 % (0.0-10.0); %Neutrophils 73.7 % (42.0-75.0); Hematocrit 33.2 % (42.0-52.0); Hemoglobin 10.9 g/dL (14.0-18.0); Mean Corpuscular Hemoglobin 32.2 pg (27.0-31.0); Mean Corpuscular Volume 97.9 fL (78.0-98.0); Platelet Count 203 10x3/uL (130-400); Red Blood Cell (RBC) Count 3.39 mill/uL (4.70-6.10); White Blood Cell (WBC) Count 10.52 10x3/uL (4.8-10.8)
[2025-01-02 06:52] LABS: ALT (SGPT) 7 U/L (Less than 45); AST (SGOT) 22 U/L (11-34); Albumin 2.3 g/dL (3.1-4.5); Alkaline Phosphatase 68 U/L (40-110); Anion Gap 12 mmol/L (10-20); BUN (Urea Nitrogen) 11 mg/dL (8.4-25.7); Bilirubin, Total 0.4 mg/dL (0.3-1.2); Calc. Creatinine Clearance 19 mL/min (70-130); Calcium 8.3 mg/dL (7.8-10.44); Carbon Dioxide 28 mmol/L (23-31); Chloride 103 mmol/L (98-107); Globulin 3.7 g/dL (2.4-3.5); Glucose 113 mg/dL (83-110); Potassium 3.8 mmol/L (3.5-5.1); Sodium 139 mmol/L (136-145)
[2025-01-02] MEDS: Pantoprazole 40 MG VIAL IVP SCH (09:21)
[2025-01-02] MEDS: Losartan 25 MG TAB PO SCH (22:55)
[2025-01-03 07:37] LABS: #Basophils 0.10 10x3/uL (0.0-0.2); #Eosinophils 0.36 10x3/uL (0.0-0.7); #Monocytes 0.99 10x3/uL (0.11-0.59); #Neutrophils 5.36 10x3/uL (1.40-6.50); %Basophils 1.2 % (0.0-1.0); %Eosinophils 4.2 % (0.0-10.0); %Lymphocytes 16.2 % (21.0-51.0); %Monocytes 11.6 % (0.0-10.0); %Neutrophils 63.2 % (42.0-75.0); Hematocrit 34.6 % (42.0-52.0); Hemoglobin 11.1 g/dL (14.0-18.0); Mean Corpuscular Hemoglobin 32.1 pg (27.0-31.0); Mean Corpuscular Volume 100.0 fL (78.0-98.0); Platelet Count 219 10x3/uL (130-400); Red Blood Cell (RBC) Count 3.46 mill/uL (4.70-6.10); White Blood Cell (WBC) Count 8.50 10x3/uL (4.8-10.8)
[2025-01-03 08:12] LABS: ALT (SGPT) 9 U/L (Less than 45); AST (SGOT) 24 U/L (11-34); Albumin 2.4 g/dL (3.1-4.5); Alkaline Phosphatase 73 U/L (40-110); Anion Gap 14 mmol/L (10-20); BUN (Urea Nitrogen) 25 mg/dL (8.4-25.7); Bilirubin, Total 0.4 mg/dL (0.3-1.2); Calc. Creatinine Clearance 12 mL/min (70-130); Calcium 8.5 mg/dL (7.8-10.44); Carbon Dioxide 25 mmol/L (23-31); Chloride 105 mmol/L (98-107); Globulin 3.5 g/dL (2.4-3.5); Glucose 84 mg/dL (83-110); Potassium 4.2 mmol/L (3.5-5.1); Sodium 140 mmol/L (136-145)
[2025-01-03] MEDS: hydrALAZINE 20 MG/ML VIAL SLOW IVP PRN (18:38)
[2025-01-03] MEDS: Carvedilol 25 MG TAB PO SCH (20:53)
[2025-01-04 05:20] LABS: Hematocrit 34.7 % (42.0-52.0); Hemoglobin 10.9 g/dL (14.0-18.0); Mean Corpuscular Hemoglobin 31.5 pg (27.0-31.0); Mean Corpuscular Volume 100.3 fL (78.0-98.0); Platelet Count 205 10x3/uL (130-400); Red Blood Cell (RBC) Count 3.46 mill/uL (4.70-6.10); White Blood Cell (WBC) Count 7.78 10x3/uL (4.8-10.8)
[2025-01-04 05:29] LABS: ALT (SGPT) 7 U/L (Less than 45); AST (SGOT) 22 U/L (11-34); Albumin 2.3 g/dL (3.1-4.5); Alkaline Phosphatase 67 U/L (40-110); Anion Gap 15 mmol/L (10-20); BUN (Urea Nitrogen) 34 mg/dL (8.4-25.7); Bilirubin, Total 0.3 mg/dL (0.3-1.2); Calc. Creatinine Clearance 9 mL/min (70-130); Calcium 8.3 mg/dL (7.8-10.44); Carbon Dioxide 24 mmol/L (23-31); Chloride 103 mmol/L (98-107); Globulin 3.4 g/dL (2.4-3.5); Glucose 105 mg/dL (83-110); Potassium 4.4 mmol/L (3.5-5.1); Sodium 138 mmol/L (136-145)
[2025-01-04 06:13] LABS: Macrocytosis SLIGHT = 6-15 cells HPF (0-5); Platelet Adequacy Comment Platelets Normal; Polychromasia SLIGHT = 2-3 cells HPF (0-2); Smudge Cells 7.6 %
[2025-01-04 08:51] VITALS: TEMP 98.4
[2025-01-04 15:09] VITALS: BP 174/63
== END 2025-01-04 16:50 | disposition home or self-care (01) | DRG 393 ==
LOC: ERS 13:05 → T4-B 16:47
PROVIDERS: ADMIT Family Medicine; ATTEND Hospitalist
DX: K55.9 Vascular disorder of intestine, unspecified (principal); N18.6 End stage renal disease; I12.0 Hypertensive chronic kidney disease with stage 5 chronic kidney disease or end stage renal disease; K92.1 Melena; E11.22 Type 2 diabetes mellitus with diabetic chronic kidney disease; I95.9 Hypotension, unspecified; E78.5 Hyperlipidemia, unspecified; F32.A Depression, unspecified; G40.909 Epilepsy, unspecified, not intractable, without status epilepticus; Z88.8 Allergy status to other drugs, medicaments and biological substances; Z86.73 Personal history of transient ischemic attack (TIA), and cerebral infarction without residual deficits; Z98.890 Other specified postprocedural states; Z99.2 Dependence on renal dialysis; Z79.82 Long term (current) use of aspirin; Z79.899 Other long term (current) drug therapy; Z79.01 Long term (current) use of anticoagulants
CPT/HCPCS: 36415; 36416; 71045; 71260; 74177; 80048; 80053; 82274; 82550; 83605; 84484; 85025; 86704; 86706; 86803; 87040; 87324; 87340; 87449; 87505; 93005; 96374; J0360; J0692; J0696; J1644; J1815; J2470; J2543; J7030; J7042; Q9967

== ENCOUNTER 2025-01-07 13:30 | Emergency (ER) | payer OTHER ==
[2025-01-07 15:40] LABS: #Basophils 0.06 10x3/uL (0.0-0.2); #Eosinophils 0.34 10x3/uL (0.0-0.7); #Monocytes 1.57 10x3/uL (0.11-0.59); #Neutrophils 6.65 10x3/uL (1.40-6.50); %Basophils 0.6 % (0.0-1.0); %Eosinophils 3.3 % (0.0-10.0); %Lymphocytes 12.2 % (21.0-51.0); %Monocytes 15.2 % (0.0-10.0); %Neutrophils 64.2 % (42.0-75.0); Hematocrit 31.1 % (42.0-52.0); Hemoglobin 9.9 g/dL (14.0-18.0); Mean Corpuscular Hemoglobin 32.0 pg (27.0-31.0); Mean Corpuscular Volume 100.6 fL (78.0-98.0); Platelet Count 155 10x3/uL (130-400); Red Blood Cell (RBC) Count 3.09 mill/uL (4.70-6.10); White Blood Cell (WBC) Count 10.35 10x3/uL (4.8-10.8)
[2025-01-07 15:58] LABS: Lipase 16 U/L (8-78); Magnesium 1.8 mg/dL (1.6-2.6)
[2025-01-07 15:59] LABS: Acetaminophen Less than 10 mcg/mL (Less than 10); Salicylate Less than 8.0 mg/dL (Less than 8.0)
[2025-01-07 16:00] LABS: ALT (SGPT) 15 U/L (Less than 45); AST (SGOT) 23 U/L (11-34); Albumin 2.3 g/dL (3.1-4.5); Alkaline Phosphatase 61 U/L (40-110); Anion Gap 13 mmol/L (10-20); BUN (Urea Nitrogen) 12 mg/dL (8.4-25.7); Bilirubin, Total 0.3 mg/dL (0.3-1.2); Calc. Creatinine Clearance 0 mL/min (70-130); Calcium 7.4 mg/dL (7.8-10.44); Carbon Dioxide 26 mmol/L (23-31); Chloride 103 mmol/L (98-107); Globulin 2.8 g/dL (2.4-3.5); Glucose 150 mg/dL (83-110); Potassium 3.4 mmol/L (3.5-5.1); Sodium 139 mmol/L (136-145)
== END 2025-01-07 18:29 | disposition home or self-care (01) ==
LOC: ERS 13:30
DX: I95.9 Hypotension, unspecified (principal); N18.6 End stage renal disease; Z99.2 Dependence on renal dialysis
CPT/HCPCS: 71045; 80053; 80307; 83690; 83735; 84443; 84484; 85025; 93005; 96360; 96361